=== PATIENT | female | born 1980 | race Caucasian/White ===

== ENCOUNTER → 2018-07-03 16:59 | Outpatient (CLI) | payer BC, SELFPAY ==
[2018-07-03 17:11] LABS: Bacteria 0 SEEN /hpf (None Seen); Mucous, Urine 0 SEEN /hpf (<or=2+); White Blood Cells 0 SEEN /hpf (0-5)
[2018-07-03 17:46] LABS: Absolute Lymphocyte Count 2.42 X10^3/ul (0.83-4.51); Absolute Neutrophil Count 4.1 X10^3/uL (2.0-7.7); Basophil# 0.04 X10^3/uL; Basophil% 0.5 % (0-1); Eosinophil# 0.38 X10^3/uL; Hematocrit 39.9 % (37-47); Hemoglobin 12.9 g/dl (12.0-15.0); Lymphocyte # 2.42 X10^3/ul (4.0); Lymphocyte % 32.1 % (19-41); Mean Corp Hgb Conc 32.3 g/gl (32-36); Mean Corpuscular Hgb 28.5 pg (27.0-32.0); Mean Corpuscular Volume 88.1 fL (81-99); Mean Platelet Vol. 9.9 fl (6.2-12.0); Monocyte# 0.56 X10^3/uL; Monocyte% 7.4 % (0-10); Neutrophil # 4.13 X10^3/uL (2.7-7.7); Neutrophil % 54.9 % (47-70); Platelet Count 230 K/mm3 (150-450); RBC Distribution Width CV 13.3 % (11.6-14.6); RBC Distribution Width SD 42.3 fl (35.1-43.9); Red Blood Count 4.53 M/mm3 (4.2-5.4); White Blood Count 7.5 K/mm3 (4.4-11.0)
[2018-07-03 17:48] LABS: POSITIVE COUNT NO; POSITIVE DIFFERENTIAL NO; POSITIVE MORPHOLOGY NO
[2018-07-03 18:38] LABS: AST(SGOT) 13 U/L (15-37); Alanine Aminotransfer ALT/SGPT 23 U/L (13-56); Albumin, Serum 3.5 g/dL (3.2-5.0); Alkaline Phosphatase 61 U/L (45-117); Anion Gap 8 (5-15); BUN 10 mg/dL (7-18); BUN/Creat Ratio 10.1 RATIO (10-20); Calcium,Total 8.4 mg/dL (8.5-10.1); Chloride 106 mmol/L (98-107); Creatinine, Serum 0.99 mg/dL (0.55-1.02); EST Glomerular Filtration Rate 67 mL/min (>60); Est Glom Filt Rate - Afr Amer 81 mL/min (>60); Globulin 3.5 g/dL (2.2-4.2); Glucose 83 mg/dL (74-106); Magnesium 2.3 mg/dL (1.6-2.6); Potassium 3.7 mmol/L (3.5-5.1); Sodium Level 143 mmol/L (136-145); Thyroid Stim Hormone (TSH) 0.78 uIU/mL (0.358-3.74)
[2018-07-03 18:41] LABS: Amphetamine Urine VISTA NEGATIVE (<1000 ng/mL); Barbiturate Urine VISTA NEGATIVE (< 200 ng/mL); Benzodiazepine Urine VISTA NEGATIVE (< 200 ng/mL); Cocaine Urine VISTA NEGATIVE (< 300 ng/mL); Ecstacy Urine VISTA POSITIVE (< 500 ng/mL); Methadone Urine VISTA NEGATIVE (< 300 ng/mL); PCP Urine VISTA NEGATIVE (< 25 ng/mL); THC Urine VISTA NEGATIVE (< 50 ng/mL); Vista UDS pH Range 6
[2018-07-03 19:45] LABS: Color, Urine Yellow (Yellow); Glucose, Dipstick Normal (Normal); Ketone-Dipstick Negative (Negative); Leukocyte Esterase-Dipstick Negative /ul (Negative); Nitrite-Dipstick Negative (Negative); Occult Blood-Urine 50 /ul (Negative); Protein-Dipstick 100 mg/dl (Negative); Specific Gravity, Urine 1.015 (1.002-1.030); Urine Bilirubin Dipstick Negative (Negative); Urine Clarity Clear (Clear); Urine Urobilinogen Normal (Normal)
[2018-07-03 19:52] LABS: Red Blood Cells-Urine 0-5 SEEN /hpf (0-5); Squamous Epithelial Cells - UA 0-5 SEEN /hpf (5-10)
--- OUTSIDE RECORDS SUMMARY | 2018-09-07 08:05 | XMS RPT_ITS ---
:1980 Author Organization OHIP Care Team Providers Name Role Phone Yash Lewis Attending Unavailable Yash Lewis Referring Unavailable Maxime Villa Primary Care Unavailable Maxime Villa Attending Unavailable Maxime Villa Primary Care Unavailable PROBLEMS PROBLEMS DATE TYPE CONDITION / CODE ATTENDING STATUS SOURCE 07/07/2018 Unknown I10 - Essential Yash Lewis (primary) E [facility] hypertension / Hospital I10(ICD-10) Repository PROCEDURES PROCEDURES No Procedure Records FoundRESULTS RESULTS BASIC METABOLIC Collected: 07/08/2018 Status: F Source: [place] PROFILE (BMP) 4:21 PM [facility] REPOSITORY TYPE CODE TESTS RESULT OUT OF RANGE REFERENCE UNITS LAB L501.0100 74-106 mg/dL High GLU 108 Result Comment: Fasting Glucose result from 100 to 125 mg/dL suggests IMPAIRED HOMEOSTASIS per A.D.A. criteria. Please note revised GLUCOSE reference range effective 2017. LAB L501.1000 7-18 mg/dL Normal BUN 18 LAB L501.1100 0.55-1.02 mg/dL High CREAT,SERUM 1.23 Result Comment: The validity of the calculated GFR AND GFRAA in patients over 70 years has not been determined. Clinical correlation is essential. LAB L501.1110 >60 mL/min Low EST GFR 52 Result Comment: Non- GFR Calc LAB L501.1115 >60 mL/min Normal EST GFR - AA 63 Result Comment: GFR Calc LAB L501.1300 10-20 RATIO Normal BUN/CRE 14.6 LAB L501.2200 8.5-10.1 mg/dL CA Normal 9.0 LAB L501.5300 136-145 mmol/L NA Normal 141 LAB L501.5600 3.5-5.1 mmol/L K Normal 3.7 LAB L501.5900 98-107 mmol/L CL Normal 105 LAB L501.6100 21.0-32.0 mmol/L Normal CO2 24.0 LAB L501.6200 5-15 Normal GAP 12 Performed By: #### L500.2500 #### [facility] [address] [place], [address] URINALYSIS, COMPLETE Collected: 07/03/2018 Status: F Source: [place] 5:11 PM [facility] REPOSITORY Order Comment: How was Urine Obtained? CLEAN CATCH TYPE CODE TESTS RESULT OUT OF RANGE REFERENCE UNITS LAB L400.3000 Yellow COLOR Normal Yellow LAB L400.3050 Clear Normal CLARITY Clear LAB L400.3200 Normal mg/dl Normal GLUCOSE, UR Normal LAB L400.3300 Negative mg/dL Normal BILIRUBIN URINE Negative LAB L400.3400 Negative mg/dl Normal KETONE UR Negative LAB L400.3465 1.002-1.030 Normal SP.GR. DIPSTX 1.015 LAB L400.3550 5.0 - 8.0 pH UR Normal 7.0 LAB L400.3600 Negative mg/dl High PROT DIPSTX 100 LAB L400.3700 Normal mg/dl Normal UROBILI Normal LAB L400.3750 Negative Normal NITRITE UR Negative LAB L400.3780 Negative /ul High 50 OCCULT BLOOD-UR LAB L400.3800 Negative /ul LEUK Normal ESTERASE Negative LAB L400.4050 0-5 /hpf WBC 0 Normal SEEN LAB L400.4100 0-5 /hpf Normal RBC-UA 0-5 SEEN LAB L400.4150 5-10 /hpf SQUAM Normal EPI 0-5 SEEN LAB L400.4300 None Seen /hpf 0 Normal BACTERIA SEEN LAB L400.4350 <or=2+ /hpf 0 Normal MUCUS, URINE SEEN Performed By: #### L400.0001 #### [facility] [address] [place], [address] URINE DRUG SCREEN Collected: 07/03/2018 Status: F Source: [place]) 5:10 PM [facility] REPOSITORY Order Comment: List of Drugs Taken or Suspected? N TYPE CODE TESTS RESULT OUT OF RANGE REFERENCE UNITS LAB L505.0075 TO BE Normal CONFIRMED Result Comment: CONFIRMATORY TESTING FOR ALL POSITIVE URINE DRUG SCREEN RESULTS WILL ONLY BE SENT OUT UPON PHYSICIAN ORDER. VISTA Urine Drug Screen methods provide only preliminary analytical test results. A more specific alternate chemical method must be used in order to obtain a confirmed analytical result. Gas chromatography/mass spectrometery (GC/MS) is the preferred confirmatory method. Clinical consideration and professional judgement should be applied to any drug of abuse test result, particularly when preliminary positive results are used. URINE TCA TESTING MUST BE ORDERED SEPARATELY. USE TEST MNEMONIC: [facility] LAB L505.5005 VISTA UDS PH 6 Normal LAB L505.5015 <1000 ng/mL AMPHETAMINES Normal NEGATIVE LAB L505.5025 < 200 ng/mL BARBITIURATES Normal NEGATIVE LAB L505.5035 < 200 ng/mL BENZODIAZIPINE Normal NEGATIVE LAB L505.5045 < 300 ng/mL COCAINE Normal NEGATIVE LAB L505.5055 < 500 High ng/mL ECSTACY POSITIVE LAB L505.5065 < 300 ng/mL METHADONE Normal NEGATIVE LAB L505.5075 < 300 ng/mL OPIATES Normal NEGATIVE LAB L505.5085 < 25 ng/mL PCP Normal NEGATIVE LAB L505.5095 < 50 ng/mL THC Normal NEGATIVE Performed By: #### L505.5000, L100.0100, L500.4050, L501.5200, L501.9520 #### [facility] [address] [place], [address] CBC W/DIFF, AUTOMATED Collected: 07/03/2018 Status: F Source: [place] 5:10 PM [facility] REPOSITORY TYPE CODE TESTS RESULT OUT OF RANGE REFERENCE UNITS LAB L100.1000 4.4-11.0 K/mm3 Normal WBC 7.5 LAB L100.1200 4.2-5.4 M/mm3 Normal RBC 4.53 LAB L100.1300 12.0-15.0 g/dl Normal HGB 12.9 LAB L100.1400 37-47 % Normal HCT 39.9 LAB L100.1500 81-99 fL Normal MCV 88.1 LAB L100.1600 27.0-32.0 pg Normal MCH 28.5 LAB L100.1700 32-36 g/gl Normal MCHC 32.3 LAB L100.1810 11.6-14.6 % Normal RDW CV 13.3 LAB L100.1820 35.1-43.9 fl Normal RDW SD 42.3 LAB L100.1900 150-450 K/mm3 Normal PLT 230 LAB L100.2000 6.2-12.0 fl Normal MPV 9.9 LAB L100.2100 47-70 % Normal NEUT% 54.9 LAB L100.2200 19-41 % Normal LY% 32.1 LAB L100.2300 0-10 % Normal MONO% 7.4 LAB L100.2400 0-5 % Normal EO% 5.0 LAB L100.2500 0-1 % Normal BASO% 0.5 LAB L100.2550 0.0-0.9 % Normal IM GRAN % 0.100 Result Comment: IG% - Immature Granulocytes (promyelocytes, myelocytes and metamyelocytes) > 1% indicates that a LEFT SHIFT is Present. LAB L100.2620 2.0-7.7 X10 3/uL Normal Absolute Neut 4.1 LAB L100.2720 0.83-4.51 X10 3/ul Normal Absolute Lymph 2.42 Performed By: #### L505.5000, L100.0100, L500.4050, L501.5200, L501.9520 #### [facility] [address] [place], [place], [address] COMPREHENSIVE METABOLIC Collected: 07/03/2018 Status: F Source: [facility] 5:10 PM [facility] REPOSITORY TYPE CODE TESTS RESULT OUT OF RANGE REFERENCE UNITS LAB L501.0100 74-106 mg/dL Normal GLU 83 Result Comment: Please note revised GLUCOSE reference range effective 2017. LAB L501.1000 7-18 mg/dL Normal BUN 10 LAB L501.1100 0.55-1.02 mg/dL Normal CREAT,SERUM 0.99 Result Comment: The validity of the calculated GFR AND GFRAA in patients over 70 years has not been determined. Clinical correlation is essential. LAB L501.1110 >60 mL/min Normal EST GFR 67 Result Comment: Non- GFR Calc LAB L501.1115 >60 mL/min Normal EST GFR - AA 81 Result Comment: GFR Calc LAB L501.1300 10-20 RATIO Normal BUN/CRE 10.1 LAB L501.1500 6.4-8.2 g/dL T Normal PROT 7.0 LAB L501.1800 3.2-5.0 g/dL Normal ALB 3.5 LAB L501.1950 2.2-4.2 g/dL Normal GLOB 3.5 LAB L501.2000 0.9-2.4 RATIO Normal A/G 1.0 LAB L501.2200 8.5-10.1 mg/dL Low CA 8.4 LAB L501.4100 15-37 U/L Low AST 13 LAB L501.4305 45-117 U/L Normal ALK P 61 LAB L501.4405 13-56 U/L Normal ALT 23 LAB L501.4600 0.20-1.00 mg/dL T Normal BILI 0.20 LAB L501.5300 136-145 mmol/L NA Normal 143 LAB L501.5600 3.5-5.1 mmol/L K Normal 3.7 LAB L501.5900 98-107 mmol/L CL Normal 106 LAB L501.6100 21.0-32.0 mmol/L Normal CO2 29.0 LAB L501.6200 5-15 Normal GAP 8 Performed By: #### L505.5000, L100.0100, L500.4050, L501.5200, L501.9520 #### [facility] [address] [place] [place], [address] MAGNESIUM Collected: 07/03/2018 Status: F Source: [place] 5:10 PM [facility] REPOSITORY TYPE CODE TESTS RESULT OUT OF RANGE REFERENCE UNITS LAB L501.5200 1.6-2.6 mg/dL Normal MG 2.3 Performed By: #### L505.5000, L100.0100, L500.4050, L501.5200, L501.9520 #### [facility] [address] [place], [address] THYROID STIM HORMONE Collected: 07/03/2018 Status: F Source: [place] (TSH) 5:10 PM [facility] REPOSITORY TYPE CODE TESTS RESULT OUT OF RANGE REFERENCE UNITS LAB L501.9520 0.358-3.74 uIU/mL Normal TSH 0.78 Performed By: #### L505.5000, L100.0100, L500.4050, L501.5200, L501.9520 #### [place] [facility] [address] [place], [address] MISCELLANEOUS LAB Collected: 07/03/2018 Status: F Source: [place] PROCEDURE 5:10 PM [facility] REPOSITORY Order Comment: ADD ON Comments: [id number] MDMA SCREEN AND CONFIRMATION Test(s) Ordered: [id number] MDMA SCREEN AND CONFIRMATION TYPE CODE TESTS RESULT OUT OF RANGE REFERENCE UNITS LAB L801.1541 Normal [facility] LAB TEST Result Comment: TEST RESULT UNITS REF INTERVAL MDMA SCREEN, URINE NEGATIVE ng/mL IFJPYM=399 TESTING PERFORMED AT [facility]. ORIGINAL REPORT ON FILE IN LAB CONTAINS ADDITIONAL TEST SITE INFORMATION. Performed By: #### L801.1541 #### [place] [facility] [address] [place], [address] ALLERGIES ALLERGIES No Allergies Records FoundENCOUNTERS ENCOUNTERS ADMIT/DISCHARGE ACCOUNT ADMITTING ENCOUNTER LOCATION SOURCE NUMBER CLASS 07/08/2018 [id number] Ambulatory [facility] 2 [facility] ing:MFPLAB Repository 07/03/2018 [id number] Ambulatory [facility] 6 [facility] ing:MTLAB Repository PAYERS PAYERS ENCOUNTER GUARANTOR PAYER SUBSCRIBER SOURCE 07/08/2018 TARAS R [id number] Primary [place] Insurance:ANTHEMPolic GIAGUEDOB: [facility] Number: [id number] Hospital [id number]: 330 [id number] Repository [phone] () Date:1542-46-72ES [address], [place] [address]YP: 07/08/2018 Secondary NOT GIVENUNK [place] Insurance:SELF PAY [facility] Number: Effective Repository Date:2018-07-08 07/03/2018 TARAS R [id number] Primary TARAS R [place] Insurance:ANTHEMPolic GIAGUEDOB: [facility] Number: [id number] Hospital [id number]: (330 [id number] Repository [phone] () Date:0592-61-33XL [address], [place] [address]II: 07/03/2018 Secondary NOT GIVENUNK [place] Insurance:SELF PAY [facility] Number: Effective Repository Date:2018-07-03
== END ==
PROVIDERS: Family Provider Family Medicine; PCP Family Medicine; Referring Provider Family Medicine; Visit Provider Family Medicine
DX: I10 Essential (primary) hypertension (principal); R82.5 Elevated urine levels of drugs, medicaments and biological substances
CPT/HCPCS: 80053; 80307; 81001; 83735; 84443; 85025

== ENCOUNTER → 2018-07-08 16:20 | Outpatient (CLI) | payer BC, SELFPAY ==
[2018-07-08 18:24] LABS: Anion Gap 12 (5-15); BUN 18 mg/dL (7-18); BUN/Creat Ratio 14.6 RATIO (10-20); Chloride 105 mmol/L (98-107); Creatinine, Serum 1.23 mg/dL (0.55-1.02); EST Glomerular Filtration Rate 52 mL/min (>60); Est Glom Filt Rate - Afr Amer 63 mL/min (>60); Glucose 108 mg/dL (74-106); Potassium 3.7 mmol/L (3.5-5.1); Sodium Level 141 mmol/L (136-145)
--- OUTSIDE RECORDS SUMMARY | 2018-09-09 18:47 | XMS RPT_ITS ---
:1980 Author Organization OHIP Care Team Providers Name Role Phone Yash Lewis Attending Unavailable Yash Lewis Referring Unavailable Maxime Villa Primary Care Unavailable Yash Lewis Attending Unavailable Yash Lewis Referring Unavailable Maxime Villa Primary Care Unavailable Maxime Villa Attending Unavailable [facility] [place] Unavailable PROBLEMS PROBLEMS DATE TYPE CONDITION / CODE ATTENDING STATUS SOURCE 07/07/2018 Unknown I10 - Essential Yash Lewis (primary) E [facility] hypertension / Hospital I10(ICD-10) Repository PROCEDURES PROCEDURES No Procedure Records FoundRESULTS RESULTS ECHOCARDIOGRAM COMPLETE Observed: 07/13/2018 Status: F Source: [place] 5:27 PM [facility] REPOSITORY [facility] [address] [place] [address] Echo Complete 07/13/18 1259 MR#: [id number] Acct: [id number] Name: MERLE HOFF Rep #: [id number] : 1980 37 From: Amaury Garsia MD Attending Dr: Yash Lewis MD Status: REG CLI Ordering Dr: Yash Lewis MD Date: 07/13/18 Location: [facility] Sex: F C Admitted: Reason For Study: LVH Procedure This was a 2D Doppler, Color Flow transthoracic echocardiogram. Exam performed in department. Left Ventricle Normal LV size. Moderate concentric left ventricular hypertrophy. Left ventricular systolic function is normal. The estimated ejection fraction is 60 %. Stage 1 diastolic dysfunction. No regional wall motion abnormalities noted. Atria Normal left atrium. Normal right atrium. Mitral Valve Normal mitral valve. Tricuspid Valve Normal tricuspid valve. Mild (1+) tricuspid valve insufficiency. Pulmonary artery systolic pressure is 26 mmHg. Aortic Valve Normal aortic valve. Trisinus/trileaflet aortic valve. Pulmonic Valve Normal pulmonic valve. Great Vessels Normal aortic root. The pulmonary artery is normal size. Normal inferior vena cava. Pericardium/Pleural No pericardial effusion. MMode/2D Measurements AND Calculations LVIDd: 3.7 cm IVSd: 1.5 cm Ao root diam: 2.8 cm LVIDs: 2.3 cm LVPWd: 1.4 cm RVDd: 2.9 cm FS: 37.6 % LAV(MOD-bp): 27.7 ml LVAd ap4: 23.5 cm2 SV(MOD-sp4): 35.6 ml LAV(MOD-bp) Indexed: 14.9 ml/m2 EDV(MOD-sp4): 60.8 ml LAV(MOD-sp2): 28.0 ml EDV(sp4-el): 62.8 ml LAV(MOD-sp4): 26.4 ml LVAs ap4: 12.8 cm2 ESV(MOD-sp4): 25.3 ml ESV(sp4-el): 25.5 ml EF(MOD-sp4): 58.5 % EF(sp4-el): 59.3 % SV(sp4-el): 37.3 ml LA A4 area: 11.5 cm2 LA dimension(2D): 3.2 cm RA A4 area: 9.0 cm2 Doppler Measurements AND Calculations MV E max scott: 69.5 cm/sec Lat Peak E' Scott: 12.3 cm/sec Med Peak E' Scott: 4.4 cm/sec MV A max scott: 83.0 cm/sec E/E' lat: 5.7 E/E' med: 15.8 MV E/A: 0.84 Ao V2 max: 173.8 cm/sec LV V1 max: 104.4 cm/sec PA V2 max: 126.2 cm/sec Ao max P.1 mmHg LV V1 max P.4 mmHg Ao V2 mean: 122.5 cm/sec Ao mean P.6 mmHg Ao V2 VTI: 23.0 cm TR max scott: 233.3 cm/sec TR max P.8 mmHg Interpretation Summary Normal LV size. Moderate concentric left ventricular hypertrophy. Left ventricular systolic function is normal. The estimated ejection fraction is 60 %. Stage 1 diastolic dysfunction. Mild (1+) tricuspid valve insufficiency. Ordering Physician: Yash Lewis Referring Physician: Maxime Villa Performed By: Shari Forte RDCS, RVT 07/13/18 172 Date Amaury Garsia MD CC: Maxime Villa MD; Yash Lewis MD Date Dictated: 07/13/18 1259 Date Transcribed: 07/13/181726 [employer] Math Tutor: Signed BASIC METABOLIC Collected: 07/08/2018 Status: F Source: [place] PROFILE (BMP) 4:21 PM [facility] REPOSITORY TYPE CODE TESTS RESULT OUT [...] GAP 12 Performed By: #### L500.2500 #### [facility] [address] [facility] [place], [place], [address] URINALYSIS, COMPLETE Collected: 07/03/2018 Status: F Source: [place] 5:11 PM [facility] REPOSITORY Order Comment: How was Urine Obtained? [...] URINE SEEN Performed By: #### L400.0001 #### [facility] [address] [place], [address] URINE DRUG SCREEN Collected: 07/03/2018 Status: F Source: [place] (VISTA) 5:10 PM [facility] REPOSITORY Order Comment: List of Drugs Taken [...] #### L505.5000, L100.0100, L500.4050, L501.5200, L501.9520 #### [facility] [address] [place], [address] CBC W/DIFF, AUTOMATED Collected: 07/03/2018 Status: F Source: [place] 5:10 PM [facility] REPOSITORY TYPE CODE TESTS RESULT OUT [...] #### L505.5000, L100.0100, L500.4050, L501.5200, L501.9520 #### [facility] [address] [place], [address] COMPREHENSIVE METABOLIC Collected: 07/03/2018 Status: F Source: [facility] 5:10 PM [facility] REPOSITORY TYPE CODE TESTS RESULT OUT [...] #### L505.5000, L100.0100, L500.4050, L501.5200, L501.9520 #### [facility] [address] [place], [place], [address] MAGNESIUM Collected: 07/03/2018 Status: F Source: [place] 5:10 PM [facility] REPOSITORY TYPE CODE TESTS RESULT OUT OF RANGE REFERENCE UNITS LAB L501.5200 1.6-2.6 mg/dL Normal MG 2.3 Performed By: #### L505.5000, L100.0100, L500.4050, L501.5200, L501.9520 #### [facility] [address] [place], [address] THYROID STIM HORMONE Collected: 07/03/2018 Status: F Source: [place] (TSH) 5:10 PM [facility] REPOSITORY TYPE CODE TESTS RESULT OUT OF RANGE REFERENCE UNITS LAB L501.9520 0.358-3.74 uIU/mL Normal TSH 0.78 Performed By: #### L505.5000, L100.0100, L500.4050, L501.5200, L501.9520 #### [facility] [address] [place], [address] MISCELLANEOUS LAB Collected: 07/03/2018 Status: F Source: [place] PROCEDURE 5:10 PM [facility] REPOSITORY Order Comment: ADD ON Comments: [id number] MDMA SCREEN AND CONFIRMATION Test(s) Ordered: [id number] MDMA SCREEN AND CONFIRMATION TYPE CODE TESTS RESULT OUT OF RANGE REFERENCE UNITS LAB L801.1541 Normal [facility] LAB TEST Result Comment: TEST RESULT UNITS REF INTERVAL MDMA SCREEN, URINE NEGATIVE ng/mL [id number]=129 TESTING PERFORMED AT [facility]. ORIGINAL REPORT ON FILE IN LAB CONTAINS ADDITIONAL TEST SITE INFORMATION. Performed By: #### L801.1541 #### [facility] [address] [place], [address] ALLERGIES ALLERGIES No Allergies Records FoundENCOUNTERS ENCOUNTERS ADMIT/DISCHARGE ACCOUNT ADMITTING ENCOUNTER LOCATION SOURCE NUMBER CLASS 07/13/2018 [id number] Ambulatory [facility] 4 [facility] ing:CVS Repository 07/08/2018 [id number] Ambulatory [facility] 2 [facility] ing:MFPLAB Repository 07/03/2018 [id number] Ambulatory [facility] 6 [facility] ing:MTLAB Repository PAYERS PAYERS ENCOUNTER GUARANTOR PAYER SUBSCRIBER SOURCE 07/13/2018 TARAS R [id number] Primary TARAS R [place] Insurance:ANTHEMPolic GIAGUEDOB: [facility] [place] [place] Number: [id number] Hospital [id number]: (330) [id number] Repository [phone] (HP) Date:3276-30-14[address], [place] [address]SU: 07/13/2018 Secondary [place]LE L [place] [facility] P[facility]AGE GIAUQUEDOB: [facility] Number: [id number] Hospital [id number] Repository Date:2018-07-07 07/13/2018 Tertiary NOT GIVENUNK [place] Insurance:SELF PAY [facility] Number: Effective Repository Date:2018-07-07 07/08/2018 TARAS R [id number] Primary TARAS R [place] Insurance:ANTHEMPolic GIAGUEDOB: [facility] [place] Number: [id number] Hospital [id number]: (330) [id number] Repository [phone] (HP) Date:2490-11-04VV [address], [place] [address]JD: 07/08/2018 Secondary NOT GIVENUNK [place] Insurance:SELF PAY [facility] Number: Effective Repository Date:2018-07-08 07/03/2018 TARAS R [id number] Primary TARAS R [place] Insurance:ANTHEMPolic [place]AGUEDOB: [facility] [place] Number: [id number] Hospital [id number]: (330) [id number] Repository [phone] (HP) Date:8915-48-64MG [address] [place] [address]SB: 07/03/2018 Secondary NOT GIVENUNK [place] Insurance:SELF PAY [facility] Number: Effective Repository Date:2018-07-03
== END ==
PROVIDERS: Family Medicine; Family Provider Family Medicine; PCP Family Medicine; Visit Provider Family Medicine
DX: I10 Essential (primary) hypertension (principal)
CPT/HCPCS: 36415; 80048

== ENCOUNTER → 2018-07-13 12:44 | Outpatient (CLI) | payer BC, SELFPAY ==
--- NOTE | 2018-07-13 12:51 | ECHOD_ITS ---
Reason For Study: LVH Procedure This was a 2D Doppler, Color Flow transthoracic echocardiogram. Exam performed in department. Left Ventricle Normal LV size. Moderate concentric left ventricular hypertrophy. Left ventricular systolic function is normal. The estimated ejection fraction is 60 %. Stage 1 diastolic dysfunction. No regional wall motion abnormalities noted. Atria Normal left atrium. Normal right atrium. Mitral Valve Normal mitral valve. Tricuspid Valve Normal tricuspid valve. Mild (1+) tricuspid valve insufficiency. Pulmonary artery systolic pressure is 26 mmHg. Aortic Valve Normal aortic valve. Trisinus/trileaflet aortic valve. Pulmonic Valve Normal pulmonic valve. Great Vessels Normal aortic root. The pulmonary artery is normal size. Normal inferior vena cava. Pericardium/Pleural No pericardial effusion. MMode/2D Measurements & Calculations LVIDd: 3.7 cm IVSd: 1.5 cm Ao root diam: 2.8 cm LVIDs: 2.3 cm LVPWd: 1.4 cm RVDd: 2.9 cm FS: 37.6 % LAV(MOD-bp): 27.7 ml LVAd ap4: 23.5 cm2 SV(MOD-sp4): 35.6 ml LAV(MOD-bp) Indexed: 14.9 ml/m2 EDV(MOD-sp4): 60.8 ml LAV(MOD-sp2): 28.0 ml EDV(sp4-el): 62.8 ml LAV(MOD-sp4): 26.4 ml LVAs ap4: 12.8 cm2 ESV(MOD-sp4): 25.3 ml ESV(sp4-el): 25.5 ml EF(MOD-sp4): 58.5 % EF(sp4-el): 59.3 % SV(sp4-el): 37.3 ml LA A4 area: 11.5 cm2 LA dimension(2D): 3.2 cm RA A4 area: 9.0 cm2 Doppler Measurements & Calculations MV E max scott: 69.5 cm/sec Lat Peak E' Scott: 12.3 cm/sec Med Peak E' Scott: 4.4 cm/sec MV A max scott: 83.0 cm/sec E/E' lat: 5.7 E/E' med: 15.8 MV E/A: 0.84 Ao V2 max: 173.8 cm/sec LV V1 max: 104.4 cm/sec PA V2 max: 126.2 cm/sec Ao max P.1 mmHg LV V1 max P.4 mmHg Ao V2 mean: 122.5 cm/sec Ao mean P.6 mmHg Ao V2 VTI: 23.0 cm TR max scott: 233.3 cm/sec TR max P.8 mmHg Interpretation Summary Normal LV size. Moderate concentric left ventricular hypertrophy. Left ventricular systolic function is normal. The estimated ejection fraction is 60 %. Stage 1 diastolic dysfunction. Mild (1+) tricuspid valve insufficiency. Ordering Physician: Yash Lewis Referring Physician: Maxime Villa Performed By: Shari Forte, KARI, RVT
== END ==
PROVIDERS: Family Provider Family Medicine; PCP Family Medicine; Referring Provider Family Medicine; Visit Provider Family Medicine
DX: I51.7 Cardiomegaly (principal)
CPT/HCPCS: 93306

== ENCOUNTER → 2018-08-07 15:57 | Outpatient (CLI) | payer BC, SELFPAY ==
[2018-08-07 17:52] LABS: Anion Gap 12 (5-15); BUN 20 mg/dL (7-18); BUN/Creat Ratio 16.9 RATIO (10-20); Calcium,Total 8.4 mg/dL (8.5-10.1); Chloride 108 mmol/L (98-107); Creatinine, Serum 1.18 mg/dL (0.55-1.02); EST Glomerular Filtration Rate 55 mL/min (>60); Est Glom Filt Rate - Afr Amer 66 mL/min (>60); Glucose 148 mg/dL (74-106); Potassium 3.6 mmol/L (3.5-5.1); Sodium Level 141 mmol/L (136-145)
== END ==
PROVIDERS: Family Provider Family Medicine; PCP Family Medicine; Referring Provider Family Medicine; Visit Provider Family Medicine
DX: I10 Essential (primary) hypertension (principal)
CPT/HCPCS: 36415; 80048

== ENCOUNTER → 2018-09-24 | Outpatient (CLI) | payer BC, SELFPAY ==
[2018-09-24 17:37] LABS: Erythrocyte Sedimentation Rate 22 mm/hr (0-20)
[2018-09-24 17:39] LABS: Absolute Lymphocyte Count 2.43 X10^3/ul (0.83-4.51); Absolute Neutrophil Count 4.8 X10^3/uL (2.0-7.7); Basophil# 0.04 X10^3/uL; Basophil% 0.5 % (0-1); Eosinophil# 0.39 X10^3/uL; Eosinophils% 4.7 % (0-5); Hemoglobin 12.6 g/dl (12.0-15.0); Lymphocyte # 2.43 X10^3/ul (4.0); Lymphocyte % 29.2 % (19-41); Mean Corp Hgb Conc 33.2 g/gl (32-36); Mean Corpuscular Hgb 28.3 pg (27.0-32.0); Mean Corpuscular Volume 85.2 fL (81-99); Mean Platelet Vol. 10.1 fl (6.2-12.0); Monocyte# 0.61 X10^3/uL; Monocyte% 7.3 % (0-10); Neutrophil # 4.83 X10^3/uL (2.7-7.7); Neutrophil % 58.1 % (47-70); Platelet Count 284 K/mm3 (150-450); RBC Distribution Width CV 13.8 % (11.6-14.6); RBC Distribution Width SD 42.6 fl (35.1-43.9); Red Blood Count 4.46 M/mm3 (4.2-5.4); White Blood Count 8.3 K/mm3 (4.4-11.0)
[2018-09-24 17:45] LABS: POSITIVE COUNT NO; POSITIVE DIFFERENTIAL NO; POSITIVE MORPHOLOGY NO
[2018-09-24 17:56] LABS: Vitamin B12 564 pg/mL (211-911); Vitamin D,25 Hydroxy 18.5 ng/mL (29.95-100.01)
[2018-09-24 18:05] LABS: Anion Gap 6 (5-15); BUN 12 mg/dL (7-18); BUN/Creat Ratio 10.5 RATIO (10-20); CRP < 2.90 mg/L (0.0-3.0); Calcium,Total 8.7 mg/dL (8.5-10.1); Chloride 105 mmol/L (98-107); Creatinine, Serum 1.14 mg/dL (0.55-1.02); EST Glomerular Filtration Rate 57 mL/min (>60); Est Glom Filt Rate - Afr Amer 69 mL/min (>60); Glucose 92 mg/dL (74-106); Iron 60 ug/dL (50-170); Potassium 3.6 mmol/L (3.5-5.1); Rheumatoid Factor < 10.0 IU/mL (<15); Sodium Level 139 mmol/L (136-145); Thyroid Stim Hormone (TSH) 0.98 uIU/mL (0.358-3.74)
[2018-09-28 14:11] LABS: ANTINUCLEAR ANTIBODIES DIRECT Negative (Negative)
== END | disposition home or self-care (01) ==
LOC: MFPLAB 16:43
PROVIDERS: Family Provider Family Medicine; PCP Family Medicine; Referring Provider Family Medicine; Visit Provider Family Medicine
DX: M79.7 Fibromyalgia (principal); R53.83 Other fatigue; I10 Essential (primary) hypertension
CPT/HCPCS: 36415; 80048; 82306; 82533; 82607; 83540; 84443; 85025; 85652; 86038; 86140; 86431

== ENCOUNTER → 2018-10-26 17:11 | Outpatient (CLI) | payer BC, SELFPAY ==
[2018-10-26 18:12] LABS: Anion Gap 8 (5-15); BUN 12 mg/dL (7-18); BUN/Creat Ratio 11.4 RATIO (10-20); Calcium,Total 8.8 mg/dL (8.5-10.1); Chloride 106 mmol/L (98-107); Creatinine, Serum 1.05 mg/dL (0.55-1.02); EST Glomerular Filtration Rate 62 mL/min (>60); Est Glom Filt Rate - Afr Amer 75 mL/min (>60); Glucose 84 mg/dL (74-106); Potassium 3.7 mmol/L (3.5-5.1); Sodium Level 140 mmol/L (136-145)
== END ==
PROVIDERS: Family Provider Family Medicine; PCP Family Medicine; Visit Provider Family Medicine
DX: N18.9 Chronic kidney disease, unspecified (principal)
CPT/HCPCS: 36415; 80048

== ENCOUNTER → 2021-02-12 16:50 | Outpatient (CLI) | payer BC, SELFPAY ==
[2021-02-12 18:03] LABS: Hematocrit 41.6 % (37-47); Hemoglobin 13.6 g/dL (12.0-15.0); Mean Corp Hgb Conc 32.7 g/dL (32-36); Mean Corpuscular Hgb 28.3 pg (27.0-32.0); Mean Corpuscular Volume 86.5 fL (81-99); Mean Platelet Vol. 10.4 fl (6.2-12.0); Platelet Count 240 K/mm3 (150-450); RBC Distribution Width CV 13.1 % (11.6-14.6); Red Blood Count 4.81 M/mm3 (4.2-5.4); White Blood Count 7.4 K/mm3 (4.4-11.0)
[2021-02-12 18:50] LABS: Anion Gap 7 (5-15); BUN 13 mg/dL (7-18); BUN/Creat Ratio 12.3 RATIO (10-20); Calcium,Total 8.7 mg/dL (8.5-10.1); Chloride 107 mmol/L (98-107); Creatinine, Serum 1.06 mg/dL (0.55-1.02); EST Glomerular Filtration Rate 61 mL/min (>60); Est Glom Filt Rate - Afr Amer 74 mL/min (>60); Glucose 84 mg/dL (74-106); Iron 74 ug/dL (50-170); Potassium 3.7 mmol/L (3.5-5.1); Sodium Level 138 mmol/L (136-145); Thyroid Stim Hormone (TSH) 1.25 uIU/mL (0.358-3.74); Vitamin B12 511 pg/mL (211-911); Vitamin D,25 Hydroxy 40.8 ng/mL
== END ==
PROVIDERS: PCP Family Medicine; Visit Provider Family Medicine
DX: E55.9 Vitamin D deficiency, unspecified (principal); I10 Essential (primary) hypertension; R53.83 Other fatigue
CPT/HCPCS: 36415; 80048; 82306; 82533; 82607; 83540; 84443; 85027

== ENCOUNTER → 2022-03-13 | Outpatient (CLI) | payer BC, SELFPAY ==
[2022-03-14 10:16] LABS: Color, Urine Straw (Yellow); Glucose, Dipstick Normal (Normal); Ketone-Dipstick Negative (Negative); Leukocyte Esterase-Dipstick 100 /ul (Negative); Nitrite-Dipstick Negative (Negative); Occult Blood-Urine Negative /ul (Negative); Protein-Dipstick 15 mg/dl (Negative); Specific Gravity, Urine 1.005 (1.002-1.030); Urine Bilirubin Dipstick Negative (Negative); Urine Clarity Clear (Clear); Urine Urobilinogen Normal (Normal)
== END | disposition home or self-care (01) ==
LOC: LABSPEC 03-14 10:11
PROVIDERS: PCP Family Medicine; Visit Provider Family Medicine
DX: Z00.00 Encounter for general adult medical examination without abnormal findings (principal)
CPT/HCPCS: 81002; 87077; 87086; 87088; 87186

== ENCOUNTER → 2022-03-20 | Outpatient (CLI) | payer BC, SELFPAY ==
[2022-03-20 10:23] LABS: Erythrocyte Sedimentation Rate 16 mm/hr (0-30)
[2022-03-20 10:34] LABS: Vitamin D,25 Hydroxy 33.4 ng/mL
[2022-03-20 11:00] LABS: Anion Gap 6 (5-15); BUN 14 mg/dL (7-18); BUN/Creat Ratio 12.8 RATIO (10-20); Calcium,Total 9.1 mg/dL (8.5-10.1); Chloride 110 mmol/L (98-107); Cholesterol 220 mg/dL (200); Creatinine, Serum 1.09 mg/dL (0.55-1.02); EST Glomerular Filtration Rate 59 mL/min (>60); Est Glom Filt Rate - Afr Amer 71 mL/min (>60); Glucose 101 mg/dL (74-106); High Density Lipoprotein 56 mg/dL; Potassium 4.2 mmol/L (3.5-5.1); Sodium Level 139 mmol/L (136-145); Triglycerides 110 mg/dL; Very Low Density Lipoprotein 22 mg/dL (5-40)
== END | disposition home or self-care (01) ==
LOC: MFPLAB 08:33
PROVIDERS: PCP Family Medicine; Referring Provider Family Medicine; Visit Provider Family Medicine
DX: I10 Essential (primary) hypertension (principal); M79.7 Fibromyalgia; E55.9 Vitamin D deficiency, unspecified
CPT/HCPCS: 36415; 80048; 80061; 82306; 84443; 85652

== ENCOUNTER → 2022-10-10 | Outpatient (CLI) | payer BC, SELFPAY ==
[2022-10-03 13:07] LABS: HPV APTIMA, High Risk Negative (Negative)
--- NOTE | 2022-10-10 15:41 | BI_ITS ---
MAMMOGRAPHY - BILATERAL SCREENING REASON FOR EXAM: Female, 42 years old. Routine annual screening examination. PERTINENT HISTORY: Non-contributory. TECHNIQUE: Digital bilateral breast zeenat (3D mammographic acquisition) in the CC and MLO projections. 2-D mediolateral oblique (MLO) and craniocaudad (CC) views of both breasts were obtained. CAD: Full Field Digital Mammography with Computer Added Detection was performed. COMPARISON: None. Baseline examination. FINDINGS: Breast Composition: The breasts are extremely dense, which lowers the sensitivity of mammography. There are no dominant masses or suspicious calcifications. There is a 1.5 cm x 0.6 cm well-defined nodule in the upper lateral anterior aspect of the right breast. Correlation with ultrasound is recommended. Small benign-appearing bilateral axillary lymph nodes. No other significant abnormalities are identified. BI/SCRN MAMM (CAD)W/ZEENAT BILAT IMPRESSION: 1.5 cm x 0.6 cm well-defined nodule in the upper lateral aspect of the right breast. Correlation with ultrasound is recommended. ASSESSMENT CATEGORY: BIRADS Category 0: Incomplete. Need additional imaging evaluation. A letter regarding these results will be sent to the patient by the facility within 30 days. Approximately 10% of breast cancers are not detected by mammography. A normal mammogram should not delay biopsy of a clinically suspicious abnormality. [id number] Electronically Signed: Dontae Alvarez MD at 8:54 EDT ,
== END | disposition home or self-care (01) ==
LOC: OPBI 15:40
PROVIDERS: PCP Family Medicine; Referring Provider Nurse Practitioner Women's Health; Visit Provider Nurse Practitioner Women's Health
DX: Z12.31 Encounter for screening mammogram for malignant neoplasm of breast (principal); Z12.4 Encounter for screening for malignant neoplasm of cervix
CPT/HCPCS: 77063; 77067; 87624; 88175; G0145

== ENCOUNTER → 2022-10-15 | Outpatient (CLI) | payer BC, SELFPAY ==
--- NOTE | 2022-10-15 09:24 | US_ITS ---
STUDY: ULTRASOUND BREAST - RIGHT REASON FOR EXAM: Female, 42 years old. Abnormal screening mammogram. TECHNIQUE: Axial and longitudinal images of the RIGHT breast were performed with a high resolution ultrasound transducer. # OF IMAGES: 37 COMPARISON: Comparison is made with prior mammogram dated October 10, 2022. FINDINGS: RIGHT Breast: The mammographic abnormality corresponds to a 8 mm x 6 mm x 3 mm hypoechoic well-defined nodule suggestive of a lymph node. US/Breast Limited Unilateral IMPRESSION: The mammographic abnormality corresponds to an 8 mm x 6 mm x 3 mm hypoechoic well-defined nodule suggestive of a lymph node. ASSESSMENT CATEGORY: BIRADS Category 2: Benign. A letter regarding these results will be sent to the patient by the facility within 30 days. Electronically Signed: Dontae Alvarez MD at 12:34 EDT ,
== END | disposition home or self-care (01) ==
PROVIDERS: PCP Family Medicine; Referring Provider Nurse Practitioner Women's Health; Visit Provider Nurse Practitioner Women's Health
DX: R92.8 Other abnormal and inconclusive findings on diagnostic imaging of breast (principal)
CPT/HCPCS: 76642

== ENCOUNTER → 2023-03-03 | Outpatient (CLI) | payer BC, SELFPAY ==
[2023-03-03 16:13] LABS: Absolute Lymphocyte Count 2.04 X10^3/uL (0.83-4.51); Absolute Neutrophil Count 4.4 X10^3/uL (2.0-7.7); Basophil# 0.05 X10^3/uL; Basophil% 0.7 % (0-1); Eosinophil# 0.21 X10^3/uL; Eosinophils% 2.9 % (0-5); Hematocrit 41.4 % (37-47); Hemoglobin 13.4 g/dL (12.0-15.0); Lymphocyte # 2.04 X10^3/ul (0.83-4.51); Mean Corp Hgb Conc 32.4 g/dL (32-36); Mean Corpuscular Hgb 28.9 pg (27.0-32.0); Mean Corpuscular Volume 89.2 fL (81-99); Mean Platelet Vol. 10.8 fl (6.2-12.0); Monocyte# 0.57 X10^3/uL; Monocyte% 7.8 % (0-10); NRBC Flagged by Analyzer 0 % (0-5); Neutrophil # 4.39 X10^3/uL (2.7-7.7); Neutrophil % 60.3 % (47-70); Platelet Count 239 K/mm3 (150-450); RBC Distribution Width CV 13.4 % (11.6-14.6); RBC Distribution Width SD 43.8 fl (35.1-43.9); Red Blood Count 4.64 M/mm3 (4.2-5.4); White Blood Count 7.3 K/mm3 (4.4-11.0)
[2023-03-03 16:35] LABS: Erythrocyte Sedimentation Rate 9 mm/hr (0-30)
[2023-03-03 17:15] LABS: ALB/GLOB Ratio 1.1 RATIO (0.9-2.4); AST(SGOT) 14 U/L (15-37); Alanine Aminotransfer ALT/SGPT 21 U/L (13-56); Albumin, Serum 3.8 g/dL (3.2-5.0); Alkaline Phosphatase 57 U/L (45-117); Anion Gap 6 (5-15); BUN 12 mg/dL (7-18); BUN/Creat Ratio 10.6 RATIO (10-20); CRP < 2.90 mg/L (0.0-3.0); Calcium,Total 8.7 mg/dL (8.5-10.1); Chloride 106 mmol/L (98-107); Creatinine, Serum 1.13 mg/dL (0.55-1.02); EST Glomerular Filtration Rate 56 mL/min (>60); Est Glom Filt Rate - Afr Amer 68 mL/min (>60); Globulin 3.6 g/dL (2.2-4.2); Glucose 96 mg/dL (74-106); LDH 139 U/L (84-246); Potassium 3.7 mmol/L (3.5-5.1); Protein, Total 7.4 g/dL (6.4-8.2); Sodium Level 138 mmol/L (136-145)
[2023-03-07 02:07] LABS: Anti-Centromere B Ab <0.2 AI (0.0-0.9); Anti-Chromatin <0.2 AI (0.0-0.9); Anti-Jo <0.2 AI (0.0-0.9); Anti-Scleroderma-70 AB <0.2 AI (0.0-0.9); Anti-dsDNA Ab <1 IU/mL (0-9); Beef <0.10 kU/L (Class 0); Chocolate <0.10 kU/L (Class 0); Clam <0.10 kU/L (Class 0); Codfish <0.10 kU/L (Class 0); Corn <0.10 kU/L (Class 0); Egg, White <0.10 kU/L (Class 0); Egg, Whole <0.10 kU/L (Class 0); Milk (Cow) <0.10 kU/L (Class 0); Peanut <0.10 kU/L (Class 0); Pork <0.10 kU/L (Class 0); RNP Ab <0.2 AI (0.0-0.9); SCALLOP <0.10 kU/L (Class 0); SESAME SEED <0.10 kU/L (Class 0); SJOGREN'S Anti-SS-A test < 0.2 AI (0.0-0.9); SJOGREN'S Anti-SS-B test < 0.2 AI (0.0-0.9); Shrimp <0.10 kU/L (Class 0); Smith Ab <0.2 AI (0.0-0.9); Soybean <0.10 kU/L (Class 0); Walnut, (Food) <0.10 kU/L (Class 0); Wheat <0.10 kU/L (Class 0)
[2023-03-07 06:08] LABS: Albumin 3.9 g/dL (2.9-4.4); Alpha-1-Globulins 0.3 g/dL (0.0-0.4); Alpha-2-Globulins 0.7 g/dL (0.4-1.0); Cytoplasmic Ab (C-ANCA) <1:20 titer (Neg:<1:20); Endomysial Antibody IgA Negative (Negative); Gamma Globulin 0.9 g/dL (0.4-1.8); Gastrin, Serum 29 pg/mL (0-115); Immunoglobulin A 346 mg/dL (87-352); Immunoglobulin E 9 IU/mL (6-495); Immunoglobulin G 774 mg/dL (586-1602); Immunoglobulin M 123 mg/dL (26-217); PROEL- TOTAL PROTEIN 6.9 g/dL (6.0-8.5); Perinuclear Ab (P-ANCA) <1:20 titer (Neg:<1:20); t-Transglutaminase IgA <2 U/mL (0-3)
== END | disposition home or self-care (01) ==
PROVIDERS: PCP Family Medicine; Referring Provider Internal Medicine Gastroenterology; Visit Provider Internal Medicine Gastroenterology
DX: K58.9 Irritable bowel syndrome, unspecified (principal)
CPT/HCPCS: 36415; 80053; 82784; 82785; 82941; 83516; 83615; 84165; 85025; 85652; 86003; 86005; 86140; 86225; 86235; 86255; 86256; 86334

== ENCOUNTER → 2023-03-08 | Outpatient (CLI) | payer BC, SELFPAY ==
[2023-03-17 14:09] LABS: Pancreatic Elastase, Fecal 272 (>200)
[2023-03-18 00:06] LABS: Calprotectin, Stool <5 ug/g (0-120); Fats, Neutral Normal (.); Fats, Total Increased (.)
== END | disposition home or self-care (01) ==
LOC: LABSPEC 10:15
PROVIDERS: PCP Family Medicine; Referring Provider Internal Medicine Gastroenterology; Visit Provider Internal Medicine Gastroenterology
DX: K58.9 Irritable bowel syndrome, unspecified (principal)
CPT/HCPCS: 82653; 82705; 83630; 83993; 87177; 87209; 87329; 87493; 87506

== ENCOUNTER 2023-04-04 05:22 | Day surgery (SDC) | payer BC, SELFPAY ==
--- NOTE | 2023-04-04 | IMM_PTH ---
PATIENT: MERLE HOFF LOC: EN U#:[id number] AGE/SX: 42/F ROOM: RE04/04/[address]: Dr. Porfirio Huertas DO : 1980 BED: DIS: 04/04/2023 SPEC #: [id number] RECD: 04/07/23 13:20 STATUS: LYNNETTE RECarol Ann #: [id number] JOSE: 04/04/23 00:[address]: Porfirio Huertas DEPT: IMMUNOHISTOCHEMISTRY RECD BY: Ivette Platt ENTERED: 04/07/23 13:21 SP TYPE: IMMUNO OTHR DR: Dr. Maxime Villa MD Tissues: B - Stomach, NOS Procedures: H Pylori (initial) PHYSICIAN & INSTITUTION [place] [id number] SPECIMEN INFORMATION: Tissue Source: B - Lesser curvature Clinical Info: Irritable bowel syndrome, GERD Specimen Number: [id number] CPT code: 84623 METHODOLOGY: Deparaffinized sections of prefer/formalin-fixed tissue or PAP/DQ stained slides are incubated with monoclonal/polyclonal antibodies/oligonucleotide probes. Localization is made via biotin free immunoperoxidase method. Appropriate controls are performed and reacted as expected. Results on target cell population are indicated in the following table: RESULTS: ANTIBODY / CLONE RESULT Block B H Pylori (polyclonal) negative These tests were developed and their performance characteristics determined by [facility]. They may not have been cleared or approved by the U.S. Food and Drug Administration. The FDA has determined that such clearance or approval is not necessary. The above immunohistochemical/dualISH markers are ordered and reviewed by the Pathologist. INTERPRETATION: B. Stomach, lesser curvature, biopsy: Negative for Helicobacter pylori organisms. AM:carolina 04/08/2023
[2023-04-04] MEDS: Lactated Ringers 1,000 ML 15 ML IV (05:52)
[2023-04-04 05:53] VITALS: BP 121/74; PULSE 80; RESP 18; TEMP 36.4; O2SAT 97; BMI 34.2
[2023-04-04 05:57] LABS: Internal QC Validated? YES +Cl - CLEAR BKGD; Pregnancy, Urine Negative Negative
--- NOTE | 2023-04-04 06:30 | EGD_PTH ---
PATIENT: MERLE HOFF LOC: EN U#:[id number] AGE/SX: 42/F ROOM: RE04/04/[address]: Dr. Porfirio Huertas DO : 1980 BED: DIS: 04/04/2023 SPEC #: [id number] RECD: 04/04/23 10:16 STATUS: LYNNETTE LIAT #: [id number] JOSE: 04/04/23 06:[address]: Porfirio Huertas DEPT: SURGICAL PATHOLOGY RECD BY: Estrellita Gant ENTERED: 04/04/23 11:10 SP TYPE: EGD BIOPSY OT DR: Dr. Maxime Villa MD Tissues: A - Duodenum, NOS B - Esophagus, NOS C - Esophagus, NOS D - Sigmoid colon biopsy E - Ileum, NOS F - COLON BIOPSY Procedures: Special Stain Group II Surgery Specimen Level IV Alcian Blue/PAS (control) HEADER OPERATION: Colonoscopy with polypectomy, biopsy, EGD with biopsy PRE-OP DIAGNOSIS: Irritable bowel syndrome, GERD TISSUE SUBMITTED: A - Duodenum, B - Lesser curvature, C - Distal esophagus, D - Sigmoid polyp, E - Terminal ileum, F - Random colon MICROSCOPIC DIAGNOSIS A. Duodenum, biopsy: Focal gastric metaplasia. Mild chronic inflammation, nonspecific. B. Stomach, lesser curvature, biopsy: Mild chronic gastritis. See comment. C. Distal esophagus, biopsy: Gastroesophageal junctional mucosa with mild chronic inflammation. Focal changes of reflux. No evidence of goblet cell metaplasia. See comment. D. Sigmoid colon polyp, biopsy: Tubular adenoma. E. Terminal ileum, biopsy: No pathologic change. F. Colon, random biopsy: No pathologic change. AM:carolina 04/07/2023 COMMENT B. The results of immunohistochemistry for Helicobacter pylori will be reported separately ([id number]). C. Alcian blue/PAS stain with matched control supports the above diagnosis. Case has been reviewed in consultation with Dr. Trammell who concurs with the above diagnosis. IDC:SJ MICROSCOPIC DESCRIPTION Slides are reviewed. GROSS DESCRIPTION A - Received in fixative is one container labeled with the patient's name and designated duodenum. The specimen consists of multiple irregular fragments of light sesay soft tissue that in aggregate measure 1.5 x 0.3 x 0.1 cm. The specimen is totally submitted in one cassette. B - Received in fixative is one container labeled with the patient's name and designated lesser curvature. The specimen consists of multiple irregular fragments of light sesay soft tissue that in aggregate measure 1.0 x 0.5 x 0.1 cm. The specimen is totally submitted in one cassette. C - Received in fixative is one container labeled with the patient's name and designated distal esophagus. The specimen consists of multiple irregular fragments of light sesay soft tissue that in aggregate measure 1.0 x 0.5 x 0.1 cm. The specimen is totally submitted in one cassette. D - Received in fixative is one container labeled with the patient's name and designated sigmoid polyp. The specimen consists of one irregular fragment of light sesay soft tissue that measures 0.3 x 0.3 x 0.1 cm. The specimen is totally submitted in one cassette. E - Received in fixative is one container labeled with the patient's name and designated terminal ileum. The specimen consists of two irregular fragments of light sesay soft tissue that in aggregate measure 0.7 x 0.4 x 0.1 cm. The specimen is totally submitted in one cassette. F - Received in fixative is one container labeled with the patient's name and designated random colon. The specimen consists of multiple irregular fragments of light sesay soft tissue that in aggregate measure 1.0 x 0.5 x 0.1 cm. The specimen is totally submitted in one cassette. / SJ:rg 04/04/2023 TC:3 CPT: 21898 x6, 79938
--- NOTE | 2023-04-04 06:36 | HP.PCM_ITS ---
History and Physical Date of Admission: 04/04/23 Gynecology established 4.13.23 noting difficulty with IBS and referred to GI. *BGI established 8.. BM alternate between constipation (lack of BM or hard/small stools) with loose stools and abdominal cramping lasting all day for 1-2 days, with all BM she has mucus and will leak from her rectum uncontrollably; bloating is a daily issue. Hemorrhoids are also a problem. Intermittent GERD is also a problem, managed with PRN Zantac and TUMs. Feels a lot of her symptoms are stress related. Strong FH of colon cancer on both sides of her family; her parents have not experienced colon cancer to date. Last colonoscopy 10 years priorMERLE HOFF, is a 42 F who presents to the office today for ROS Const Constitutional: No anorexia, fatigue, fever(s), weight change or sleep problems Eyes Eyes: No change in vision ENT ENT: No abnormal hearing, difficulty swallowing, mouth lesions, tongue swelling or throat swelling Resp Respiratory: No cough or shortness of breath Cardio Cardiology: No chest pain at rest, chest pain with exertion, shortness of breath or dyspnea on exertion Gastro GI: No difficulty swallowing Genitourinary-Female: No difficulty urinating or burning urination Musc Musculoskeletal: No joint pain, joint swelling, muscle weakness or decreased muscle mass Skin Skin: No hair loss in leg, yellowing of the eye, itchy eyes, rash, skin ulcer or skin swelling Neuro Neurology: No abnormal hearing, abnormal movements, confusion, unsteady gait/balance or memory loss Psych Psychiatric: No anxiety, No confusion and No memory loss Endo Endocrine: No fatigue or weight change Aller/Imm Allergy/Immunologic: No itchy eyes, throat swelling or tongue swelling Kali/Lymp Hematologic/Lymphatic: No easy bleeding, easy bruising or enlarged lymph nodes Exam Const General: cooperative and comfortable Nutritional Appearance: average body habitus and well nourished HENMT Head: normal to inspection Ears: hearing grossly normal bilaterally Nose: external nose normal Face and sinus: normal facial exam Mouth: oral mucosae normal Throat: posterior oropharynx normal Eyes General: appearance normal, both eyes and all related structures Neck Neck: normal visual inspection Chest Chest palpation & inspection: normal inspection of the chest and normal palpation of entire chest wall Resp Effort & Inspection: normal respiratory effort Auscultation: Bilateral: Clear to Auscultation Cardio Palpation: normal PMI Rate: regular rate Rhythm: regular rhythm GI Inspection: normal to inspection Auscultation: normal bowel sounds Percussion: normal to percussion Palpation: no hepatosplenomegaly Skin General: no rashes or lesions noted Neuro General: patient alert Extrem General: normal to inspection Psych Affect: normal affect Quality Reporting Tobacco Screening ([facility]) Smoking Status: Current some day smoker Assessment and Plan Assessment and Plan (1) IBS (irritable bowel syndrome): Status: Chronic Qualifiers: Irritable bowel syndrome type: with both diarrhea and constipation Qualified Code(s): K58.2 - Mixed irritable bowel syndrome Plan: The differential diagnosis for her abdominal pain, bloating, cramping, nausea is due to bowel syndrome with diarrhea, celiac disease, exocrine pancreatic insufficiency, eosinophilic gastroenteritis, H. pylori associated infection, peptic ulcer disease and less likely inflammatory bowel disease. She will undergo biochemical thing in possible functional testing with gastric emptying study and small bowel motility study. We may also have to get a sits marker test in order to evaluate her colon for colonic inertia and slow transit constipation versus pelvic floor dysfunction. She will undergo EGD and colonoscopy with biopsies of the upper and lower GI tract. She was explained alternatives, risk, benefits include not withstanding bleeding, infection, sepsis, perforation, need for emergent and . She have an ASA of 2. Orders: Orders Stool Lactoferrin/WBC Today K58.9 - Irritable bowel syndrome without diarrhea Erythrocyte Sed Rate Today K58.9 - Irritable bowel syndrome without diarrhea ANCA Today K58.9 - Irritable bowel syndrome without diarrhea LDH Today K58.9 - Irritable bowel syndrome without diarrhea CRP Today K58.9 - Irritable bowel syndrome without diarrhea MARICEL Comprehensive Panel Today K58.9 - Irritable bowel syndrome without diarrhea Immunoglobulins G/A/M/E Today K58.9 - Irritable bowel syndrome without diarrhea Celiac Disease Profile Today K58.9 - Irritable bowel syndrome without diarrhea CBC W/Diff, Automated Today K58.9 - Irritable bowel syndrome without diarrhea RITO + Protein Elect, Serum Today K58.9 - Irritable bowel syndrome without diarrhea Calprotectin, Stool Today K58.9 - Irritable bowel syndrome without diarrhea Comprehensive Metabolic Profil Today K58.9 - Irritable bowel syndrome without diarrhea Pancreatic Elastase, Fecal Today K58.9 - Irritable bowel syndrome without diarrhea OVA+PARA w/Giardia EIA [id number] Today K58.9 - Irritable bowel syndrome without diarrhea Fecal Fat, Qualitative Today K58.9 - Irritable bowel syndrome without diarrhea ENTERIC PATHOGEN PANEL STOOL Today K58.9 - Irritable bowel syndrome without diarrhea CDIFF (PCR) Today K58.9 - Irritable bowel syndrome without diarrhea Miscellaneous Lab Procedure Today K58.9 - Irritable bowel syndrome without diarrhea Gastrin, Serum Today K58.9 - Irritable bowel syndrome without diarrhea Allergen, Food Profile Today K58.9 - Irritable bowel syndrome without diarrhea Allergen, Rast Food Profile Today K58.9 - Irritable bowel syndrome without diarrhea I have examined the patient and the H&P has been reviewed. There are no clinical changes since date of exam.
--- NOTE | 2023-04-04 07:13 | OP.EGD_ITS ---
Patient Name: Fariha Zaidi Procedure Date: 04/04/2023 6:17 AM Date of : 1980 Age: 42 Procedure: Upper GI endoscopy Indications: Epigastric abdominal pain, Functional Dyspepsia, Heartburn Providers: Porfirio Huertas DO Medicines: Monitored Anesthesia Care Patient Profile: This is a 42 year old female. Refer to note in patient chart for documentation of history and physical. Patient has symptoms of chronic epigastric abdominal pain, chronic heartburn and chronic nausea. Complications: No immediate complications. Procedure: Pre-Anesthesia Assessment: - Prior to the procedure, a History and Physical was performed, and patient medications and allergies were reviewed. The patient is competent. The risks and benefits of the procedure and the sedation options and risks were discussed with the patient. All questions were answered and informed consent was obtained. Patient identification and proposed procedure were verified by the physician. Mental Status Examination: alert and oriented. Airway Examination: normal oropharyngeal airway and neck mobility. Respiratory Examination: clear to auscultation. CV Examination: normal. Prophylactic Antibiotics: The patient does not require prophylactic antibiotics. Prior Anticoagulants: The patient has taken no anticoagulant or antiplatelet agents. ASA Grade Assessment: II - A patient with mild systemic disease. After reviewing the risks and benefits, the patient was deemed in satisfactory condition to undergo the procedure. The anesthesia plan was to use monitored anesthesia care (MAC). Immediately prior to administration of medications, the patient was re-assessed for adequacy to receive sedatives. The heart rate, respiratory rate, oxygen saturations, blood pressure, adequacy of pulmonary ventilation, and response to care were monitored throughout the procedure. The physical status of the patient was re-assessed after the procedure. After obtaining informed consent, the endoscope was passed under direct vision. Throughout the procedure, the patient's blood pressure, pulse, and oxygen saturations were monitored continuously. The Colonoscope was introduced through the mouth, and advanced to the second part of duodenum. The upper GI endoscopy was accomplished without difficulty. The patient tolerated the procedure well. Scope In: 6:40:25 AM Scope Out: 6:46:38 AM Total Procedure Duration Time 0 hours 6 minutes 13 seconds Findings: LA Grade B (one or more mucosal breaks greater than 5 mm, not extending between the tops of two mucosal folds) esophagitis with no bleeding was found 36 to 38 cm from the incisors. Biopsies were taken with a cold forceps for histology. Verification of patient identification for the specimen was done. Estimated blood loss was minimal. A hiatal hernia was present. A few localized 5 mm erosions with no stigmata of recent bleeding were found on the lesser curvature of the stomach. Biopsies were taken with a cold forceps for histology. Localized mildly erythematous mucosa without active bleeding and with no stigmata of bleeding was found in the duodenal bulb. Biopsies were taken with a cold forceps for histology. Verification of patient identification for the specimen was done. Estimated blood loss was minimal. Impression: - LA Grade B reflux esophagitis with no bleeding. Biopsied. - Hiatal hernia. - Erosive gastropathy with no stigmata of recent bleeding. Biopsied. - Erythematous duodenopathy. Biopsied. Recommendation: - Discharge patient to home. - Resume previous diet. - Continue present medications. - Await pathology results. Procedure Code(s): --- Professional --- 68969, Esophagogastroduodenoscopy, flexible, transoral; with biopsy, single or multiple CPT copyright 2021 [employer]. All rights reserved. The codes documented in this report are preliminary and upon yield clerk review may be revised to meet current compliance requirements. Porfirio Huertas DO 04/04/2023 7:12:40 AM This report has been signed electronically. Number of Addenda: 0 Note Initiated On: 04/04/2023 6:17 AM
--- NOTE | 2023-04-04 07:13 | OP.CCLET_ITS ---
04/04/2023 Dheeraj Villa [address] [place] [address] Re : Upper GI endoscopy procedure for Fariha Thayerdonovan Dear Dr. Villa This procedure was performed on Tuesday, April 04, 2023. My impressions and recommendations are as follows: Impressions : - LA Grade B reflux esophagitis with no bleeding. Biopsied. - Hiatal hernia. - Erosive gastropathy with no stigmata of recent bleeding. Biopsied. - Erythematous duodenopathy. Biopsied. Recommendations : - Discharge patient to home. - Resume previous diet. - Continue present medications. - Await pathology results. My findings are described in the full procedure note, which is enclosed. If I can be of further assistance, please feel free to contact me at . Sincerely, Porfirio Huertas, 04/04/2023 7:12:40 AM This report has been signed electronically.
[2023-04-04 07:15] VITALS: BP 108/68; BP 121/74; PULSE 72; RESP 16; TEMP 37.1; O2SAT 100
--- NOTE | 2023-04-04 07:16 | OP.CCLET_ITS ---
04/04/2023 Dheeraj Villa [address] [place] [address] Re : Colonoscopy procedure for Fariha Tahyerdonovan Dear Dr. Villa This procedure was performed on Tuesday, April 04, 2023. My impressions and recommendations are as follows: Impressions : - Hemorrhoids found on perianal exam. - One 5 mm polyp in the sigmoid colon, removed with a cold snare. Resected and retrieved. - Diverticulosis in the sigmoid colon. - Congested mucosa in the transverse colon and in the ascending colon. Biopsied. - Congested mucosa in the terminal ileum. Biopsied. Recommendations : - Discharge patient to home. - Resume previous diet. - Continue present medications. - Await pathology results. - Repeat colonoscopy in 5 years for surveillance. My findings are described in the full procedure note, which is enclosed. If I can be of further assistance, please feel free to contact me at . Sincerely, Porfirio Huertas, 04/04/2023 7:15:35 AM This report has been signed electronically.
--- NOTE | 2023-04-04 07:16 | OP.COLON_ITS ---
Patient Name: Fariha Zaidi Procedure Date: 04/04/2023 6:47 AM Date of : 1980 Age: 42 Procedure: Colonoscopy Indications: Screening in patient at increased risk: Family history of 1st-degree relative with colorectal cancer, Screening patient at increased risk: Family history of colorectal cancer in multiple 1st-degree relatives Providers: Porfirio Huertas DO Medicines: Monitored Anesthesia Care Patient Profile: This is a 42 year old female. Refer to note in patient chart for documentation of history and physical. Patient has symptoms of chronic epigastric abdominal pain, chronic heartburn and chronic nausea. Last Colonoscopy: 10 years ago. Complications: No immediate complications. Procedure: Pre-Anesthesia Assessment: - Prior to the procedure, a History and Physical was performed, and patient medications and allergies were reviewed. The patient is competent. The risks and benefits of the procedure and the sedation options and risks were discussed with the patient. All questions were answered and informed consent was obtained. Patient identification and proposed procedure were verified by the physician. Mental Status Examination: alert and oriented. Airway Examination: normal oropharyngeal airway and neck mobility. Respiratory Examination: clear to auscultation. CV Examination: normal. Prophylactic Antibiotics: The patient does not require prophylactic antibiotics. Prior Anticoagulants: The patient has taken no anticoagulant or antiplatelet agents. ASA Grade Assessment: II - A patient with mild systemic disease. After reviewing the risks and benefits, the patient was deemed in satisfactory condition to undergo the procedure. The anesthesia plan was to use monitored anesthesia care (MAC). Immediately prior to administration of medications, the patient was re-assessed for adequacy to receive sedatives. The heart rate, respiratory rate, oxygen saturations, blood pressure, adequacy of pulmonary ventilation, and response to care were monitored throughout the procedure. The physical status of the patient was re-assessed after the procedure. After I obtained informed consent, the scope was passed under direct vision. Throughout the procedure, the patient's blood pressure, pulse, and oxygen saturations were monitored continuously. The Colonoscope was introduced through the anus and advanced to the terminal ileum. The colonoscopy was performed without difficulty. The patient tolerated the procedure well. The quality of the bowel preparation was adequate. The terminal ileum, ileocecal valve, appendiceal orifice, and rectum were photographed. Scope In: 6:50:15 AM Scope Withdrawal Time 0 hours 8 minutes 22 seconds Scope Out: 7:03:36 AM Total Procedure Duration Time 0 hours 13 minutes 21 seconds Findings: Hemorrhoids were found on perianal exam. A 5 mm polyp was found in the sigmoid colon. The polyp was sessile. The polyp was removed with a cold snare. Resection and retrieval were complete. Verification of patient identification for the specimen was done. Estimated blood loss was minimal. A few small-mouthed diverticula were found in the sigmoid colon. An area of mildly congested mucosa was found in the transverse colon and in the ascending colon. Biopsies were taken with a cold forceps for histology. Verification of patient identification for the specimen was done. Estimated blood loss was minimal. A localized area of the terminal ileum was congested. Biopsies were taken with a cold forceps for histology. Verification of patient identification for the specimen was done. Estimated blood loss was minimal. Impression: - Hemorrhoids found on perianal exam. - One 5 mm polyp in the sigmoid colon, removed with a cold snare. Resected and retrieved. - Diverticulosis in the sigmoid colon. - Congested mucosa in the transverse colon and in the ascending colon. Biopsied. - Congested mucosa in the terminal ileum. Biopsied. Recommendation: - Discharge patient to home. - Resume previous diet. - Continue present medications. - Await pathology results. - Repeat colonoscopy in 5 years for surveillance. Procedure Code(s): --- Professional --- 33239, Colonoscopy, flexible; with removal of tumor(s), polyp(s), or other lesion(s) by snare technique 67464, 59, Colonoscopy, flexible; with biopsy, single or multiple CPT copyright 2021 [employer]. All rights reserved. The codes documented in this report are preliminary and upon evening sitter review may be revised to meet current compliance requirements. Porfirio Huertas DO 04/04/2023 7:15:35 AM This report has been signed electronically. Number of Addenda: 0 Note Initiated On: 04/04/2023 6:47 AM
[2023-04-04 07:20] VITALS: BP 104/69; BP 121/74; PULSE 69; RESP 16; O2SAT 100
[2023-04-04 07:24] VITALS: BP 121/74; BP 99/69; PULSE 64; RESP 16; O2SAT 100
[2023-04-04 07:26] VITALS: BP 100/82; BP 121/74; PULSE 60; RESP 16; TEMP 36.9; O2SAT 98
[2023-04-04 07:39] VITALS: BP 121/74
== END 2023-04-04 07:56 | disposition home or self-care (01) ==
LOC: EN 05:22 → AC 05:24
PROVIDERS: Anesthesiology; PCP Family Medicine; Referring Provider Family Medicine; Visit Provider Internal Medicine Gastroenterology
PROC: 0DJD8ZZ Inspection of Lower Intestinal Tract, Via Natural or Artificial Opening Endoscopic (ICD-10-PCS; CPT 45378; principal; 2023-04-04 06:25)
DX: K31.A0 Gastric intestinal metaplasia, unspecified (principal); K44.9 Diaphragmatic hernia without obstruction or gangrene; K58.2 Mixed irritable bowel syndrome; F17.200 Nicotine dependence, unspecified, uncomplicated; K21.00 Gastro-esophageal reflux disease with esophagitis, without bleeding; K57.30 Diverticulosis of large intestine without perforation or abscess without bleeding; Z80.0 Family history of malignant neoplasm of digestive organs; K64.9 Unspecified hemorrhoids; K25.9 Gastric ulcer, unspecified as acute or chronic, without hemorrhage or perforation; K29.80 Duodenitis without bleeding; D12.5 Benign neoplasm of sigmoid colon; Z79.899 Other long term (current) drug therapy; I10 Essential (primary) hypertension
CPT/HCPCS: 45380; 43239; 45385; 81025; 88305; 88313; 88342; J7120; J2405

== ENCOUNTER → 2023-08-04 | Outpatient (CLI) | payer BC, SELFPAY ==
--- OUTSIDE RECORDS SUMMARY | 2023-08-04 12:52 | XMS RPT_ITS | CCD ---
Author Name Unknown Address [address] [place] [address] Organization [facility] Results Test Name Value Interpretation Reference Range Facil ity Summary Purpose Family History No Family History Records Found Advance Directives No Advanced Directives Records Found Additional Source Comments INFORMATION SOURCE (unrecogn ized section and content) FOR RECORDS PERTAINING TO PATIENTS WHO ARE OR HAVE BEEN ENROLLED IN A CHEMICAL DEPENDENCY/SUBSTANCEABUSE PROGRAM, SOME INFORMATION MAY BE OMITTED. This clinical summary was aggregated from multiple sources. Caution should be exercised in using it in the provision of clinical care. This summary normalizes information from multiple sources, and as a consequence, information in this document may materially change the coding, format and clinical context of patient data. In addition, data may be omitted in some cases. CLINICAL DECISIONS SHOULD BE BASED ON THE PRIMARY CLINICAL RECORDS. [employer] provides no warranty or guarantee of the accuracy or completeness of information in this document.
[2023-08-07 11:09] LABS: Albumin 3.7 g/dL (2.9-4.4); Alpha-1-Globulins 0.2 g/dL (0.0-0.4); Alpha-2-Globulins 0.7 g/dL (0.4-1.0); Chromogranin A 114.5 ng/mL (0.0-101.8); Endomysial Antibody IgA Negative (Negative); Gamma Globulin 0.9 g/dL (0.4-1.8); IgG, Quant 719 mg/dL (586-1602); Immunoglobulin A 349 mg/dL (87-352); Immunoglobulin G, Subclass 1 267 mg/dL (248-810); Immunoglobulin G, Subclass 2 430 mg/dL (130-555); Immunoglobulin G, Subclass 3 57 mg/dL (15-102); Immunoglobulin G, Subclass 4 11 mg/dL (2-96); Immunoglobulin M 120 mg/dL (26-217); PROEL- TOTAL PROTEIN 6.7 g/dL (6.0-8.5); t-Transglutaminase IgA <2 U/mL (0-3)
[2023-08-10 12:07] LABS: Beef <0.10 kU/L (Class 0); Chocolate <0.10 kU/L (Class 0); Codfish <0.10 kU/L (Class 0); Corn <0.10 kU/L (Class 0); Egg, Whole <0.10 kU/L (Class 0); Milk (Cow) <0.10 kU/L (Class 0); Mussels <0.10 kU/L (Class 0); Peanut <0.10 kU/L (Class 0); Pork <0.10 kU/L (Class 0); Salmon <0.10 kU/L (Class 0); Shrimp <0.10 kU/L (Class 0); Soybean <0.10 kU/L (Class 0); Tuna <0.10 kU/L (Class 0); Wheat <0.10 kU/L (Class 0)
== END | disposition home or self-care (01) ==
PROVIDERS: PCP Family Medicine; Referring Provider Internal Medicine Gastroenterology; Visit Provider Internal Medicine Gastroenterology
DX: K58.9 Irritable bowel syndrome, unspecified (principal)
CPT/HCPCS: 36415; 82784; 82787; 83516; 84165; 86003; 86005; 86255; 86316; 86334

== ENCOUNTER → 2023-08-12 | Outpatient (CLI) | payer BC, SELFPAY ==
--- OUTSIDE RECORDS SUMMARY | 2023-08-12 07:23 | XMS RPT_ITS | CCD ---
Author Name Unknown Address [address] [place] [address] Organization [facility] Results Test Name Value Interpretation [...] BE BASED ON THE PRIMARY CLINICAL RECORDS. [employer] provides no warranty or guarantee of the accuracy or completeness of information in this document.
--- NOTE | 2023-08-12 07:35 | US_ITS ---
STUDY: ABDOMINAL ULTRASOUND - RIGHT UPPER QUADRANT REASON FOR VISIT: Female, 42 years old NAFLD TECHNIQUE: Ultrasound evaluation of the right upper quadrant was performed with real-time and static reynolds-scale imaging. TECHNICAL QUALITY: Adequate. COMPARISON: None. FINDINGS: Liver: The liver measures 16.7 cm. There is increased echogenicity consistent with fatty infiltration. The bile ducts are within normal limits. There is hepatic color flow. The direction of portal flow is hepatopetal. There is no demonstrated mass lesion. Gallbladder: Normal distended gallbladder. The gallbladder wall measures 2 mm. There is a negative sonographic Fernandes''s sign. There is no pericholecystic fluid. There are no gallstones. Common Bile Duct (C.B.D.): The common bile duct measures 4 mm. Pancreas: Normal size of the head, body and tail of the pancreas. There is normal echogenicity of the pancreas. There is no demonstrated pancreatic mass or cyst. Right Kidney: Normal size of the right kidney. The right kidney measures 10.3 cm x 4.8 cm x 3.8 cm. Normal renal cortex. The right cortex measures 1.3 cm. There is no demonstrated renal mass or cyst. There is no right hydronephrosis. IMPRESSION: Mild fatty infiltration of the liver. Electronically Signed: Dontae Alvarez MD at 12:36 EST , STUDY: ABDOMINAL ULTRASOUND - ELASTOGRAPHY REASON FOR VISIT: Female, 42 years old. NAFLD. TECHNIQUE: Liver stiffness measurements were obtained on a TuneCore 85 ultrasound machine using a CA 1-7 probe following the SRU guidelines. 3 measurements were obtained using a 2-D-SWE method. TheIQR/M was 12% suggesting a quality data set. TECHNICAL QUALITY: Adequate. COMPARISON: None. FINDINGS: Liver: There is no demonstrated mass lesion. Median liver stiffness measured 4.9 kPa. Abdomen: There is no demonstrated mass lesion. US/Abdomen Limited IMPRESSION: Liver stiffness measures 4.9 kPa compatible with F0-F1 (Normal to mild liver fibrosis) Metavir score. Electronically Signed: Dontae Alvarez MD at 12:37 EST ,
== END | disposition home or self-care (01) ==
PROVIDERS: PCP Family Medicine; Referring Provider Internal Medicine Gastroenterology; Visit Provider Internal Medicine Gastroenterology
DX: K75.81 Nonalcoholic steatohepatitis (NASH) (principal); K58.9 Irritable bowel syndrome, unspecified
CPT/HCPCS: 76705; 76981

== ENCOUNTER → 2023-08-27 | Outpatient (CLI) | payer BC, SELFPAY ==
--- NOTE | 2023-08-27 10:15 | NM_ITS ---
CLINICAL: 43-year-old female with history of abdominal bloating. SEMI-SOLID PHASE 99m Tc SULFUR COLLOID GASTRIC EMPTYING STUDY COMPARISON: Abdominal ultrasound report 08/12/2023 FINDINGS: The patient was administered 1.1 mCi of 99m Tc sulfur colloid mixed with oatmeal and consumed per os. Image acquisitions in the anterior -posterior projections were obtained for 60 minutes. There is prompt visualization of the stomach. There is no gastroesophageal reflux identified. The T ? linear fit was calculated to be 48.06 minutes, (Normal: 12-56 minutes). NM/Gastric Emptying Study IMPRESSION: 1. NORMAL 99m Tc sulfur colloid semi-solid phase (oatmeal) gastric emptying imaging examination. A. There is normal and preserved semi-solid phase gastric emptying compared to normal controls. (Toro et al, J Nucl Med Tech 38: 186, 2010). Electronically Signed: Bryson Hastings DO at 9:00 EDT ,
--- OUTSIDE RECORDS SUMMARY | 2023-08-27 12:36 | XMS RPT_ITS | CCD ---
Author Name Unknown Address [address] [place] [address] Organization [facility] Results Test Name Value Interpretation [...] BE BASED ON THE PRIMARY CLINICAL RECORDS. [employer] provides no warranty or guarantee of the accuracy or completeness of information in this document.
== END | disposition home or self-care (01) ==
PROVIDERS: PCP Family Medicine; Referring Provider Internal Medicine Gastroenterology; Visit Provider Internal Medicine Gastroenterology
DX: R14.0 Abdominal distension (gaseous) (principal); K58.9 Irritable bowel syndrome, unspecified
CPT/HCPCS: 78264; A9541

== ENCOUNTER → 2024-08-05 | Outpatient (CLI) | payer BC, SELFPAY ==
--- NOTE | 2024-08-05 08:22 | US_ITS ---
PROCEDURE: ABD LIMITED W/ ELASTOGRAPHY REASON FOR EXAM: Fatty infiltration of the liver. COMPARISON: Comparison is made with prior study dated August 12, 2023. TECHNIQUE: Right upper quadrant abdominal ultrasound. [email or web address] ElastQ Imaging shear wave elastography for non-invasive assessment of liver tissue stiffness. [employer] EPIQ Elite. FINDINGS: LIVER: Size: Unremarkable Length: 17.3 cm Echotexture: Diffusely echogenic suggesting fatty infiltration Contour: Normal Lesions: None identified Elastography: EQI Med: 4.9 kPa EQI Med Scott: 1.3 m/s IQR/Med: 18 %* GALLBLADDER: Normal COMMON BILE DUCT: Normal it measures 3.6 mm. PANCREAS: Normal Visualized portions of the right kidney are unremarkable. No right upper quadrant ascites. US/ABD Limited w/ Elastography IMPRESSION: NO TO MILD HEPATIC FIBROSIS Fatty infiltration of the liver. Reference Values: SRU <1.37 m/s (5.7kPa): No to mild fibrosis 1.37 m/s - 2.2 m/s: Moderate to severe fibrosis >2.2 m/s (15kPa): Significant fibrosis / cirrhosis METAVIR Score F2 or higher: 1.34 m/s (5.7kPa) F3 or higher: 1.55 m/s (7.3kPa) F4: 1.80 m/s (10kPa) * If the IQR/Med is >30%, the variance in the measurements is a large and the a ccuracy of the measurement may be in question. Reading Location: [id number]
== END | disposition home or self-care (01) ==
LOC: US 08:20
PROVIDERS: PCP Family Medicine; Referring Provider Internal Medicine Gastroenterology; Visit Provider Internal Medicine Gastroenterology
DX: K76.0 Fatty (change of) liver, not elsewhere classified (principal)
CPT/HCPCS: 76705; 76981

== ENCOUNTER 2024-09-26 09:47 | Emergency (ER) | payer BC, SELFPAY ==
[2024-09-26] VITALS (7 sets, daily range): BP systolic 116–166; BP diastolic 87–103; PULSE 50–70; RESP 14–20; TEMP 36.6–37.2; O2SAT 20–100; BMI 31.6
--- NOTE | 2024-09-26 10:09 | RAD_ITS ---
PROCEDURE: ANKLE MIN 3 VIEWS 09/26/2024 REASON FOR EXAM: FRACTURE DISLOCATION TECHNIQUE: 3 views of the right ankle COMPARISON: Same day tibia/fibula radiographs. FINDINGS: Bones: Acute spiral fracture deformity of the distal right fibula at the level of the syndesmosis. Acute linear fracture with angulation and distraction of the medial malleolus. Joints: There is slight widening of the medial clear space. Soft tissues: Soft tissue swelling. Other: Casting material of the right lower extremity. RAD/Ankle min 3 Views IMPRESSION: Acute medial and lateral malleolar fractures (Irene type B). Reading Location: [id number]
--- NOTE | 2024-09-26 10:12 | EX.ED.GENINJ ---
HPI History of Present Illness Chief Complaint: Fall Informant: patient, spouse/S.O. and EMS Narrative Narrative: 44-year-old female presenting to the emergency room with fracture dislocation of the right ankle. Patient was coming down the stairs this morning when she missed stepped and fell the last few stairs. She notes pain and injury to the right ankle. She has not noted any other injuries. She has not anything to eat or drink today. She is not on blood thinners. Patient has a history of sleep apnea as well as GERD. [facility] Medical History Wears contact lenses Wears glasses Alcohol use Anemia Difficulty swallowing Gastric reflux Former smoker CPAP (continuous positive airway pressure) dependence Sleep apnea Shortness of breath on exertion History of echocardiogram Obstructive sleep apnea IBS (irritable bowel syndrome) Hypertension Depression Anxiety Home Medications ?Medication ?Instructions ?Recorded ?Last Taken ?Type alprazolam 0.5 mg tablet (Xanax) 0.5 mg PO QHS PRN anxiety 09/26/22 Unknown History amlodipine 5 mg tablet 5 mg PO DAILY 09/26/22 04/04/23 History bupropion HCl 150 mg tablet,12 hr 150 mg PO DAILY 09/26/22 Unknown History sustained-release (Wellbutrin SR) lisinopril 10 mg tablet 10 mg PO DAILY 09/26/22 04/04/23 History sertraline 100 mg tablet (Zoloft) 250 mg PO QHS 09/26/22 Unknown History trazodone 150 mg tablet 100 - 150 mg PO DAILY 09/26/22 Unknown History pantoprazole 40 mg tablet,delayed 40 mg PO QHS #30 tabs 09/21/24 Unknown Rx release (Protonix) oxycodone-acetaminophen 5 mg-325 1 tab PO Q6H PRN PRN Pain 3 days 09/26/24 Unknown Rx mg tablet #12 TABLETS Allergy/AdvReac Type Severity Reaction Status Date / Time acetaminophen (From Vicodin) Allergy Mild Nausea/Vom/ Verified 09/26/24 09:52 Diarrhea hydrocodone (From Vicodin) Allergy Mild Nausea/Vom/ Verified 09/26/24 09:52 Diarrhea Family History Aunt Colon cancer Cancer lung Grandfather Heart disease Surgical History S/P wisdom tooth extraction Social History household members: spouse and children housing: house number of children: 3 current occupational status: employed current occupation: [employer] Smoking Status: Current some day smoker tobacco type: cigarettes alcohol intake: current alcohol intake frequency: a few times a month substance use type: does not use seatbelt use: always do you feel safe at home: Yes additional social history: - Inna garcia ROS ROS ED Constitutional Constitutional ED: Denies chills, fever(s) or weight loss Eyes Eyes: Denies change in vision or diplopia ENT ENT ED: Denies ear pain, rhinorrhea or sore throat Cardiovascular Cardiovascular: Denies chest pain, orthopnea, palpitations or racing heartbeat Respiratory/Chest Respiratory/Chest: Denies cough, dyspnea or orthopnea Gastrointestinal Gastrointestinal: Denies abdominal pain, diarrhea, nausea or vomiting Genitourinary Genitourinary ED: Denies dysuria, hematuria or urinary frequency Musculoskeletal Musculoskeletal: Reports other Details: See history of present illness ; Denies arthralgias or myalgias Integumentary Denies abscess or rash Neurologic Neurologic: Denies headache(s) or weakness Psychiatric Psychiatric: Denies anxiety, depression, suicidal ideation or suicidal thoughts Endocrine Endocrinology: Denies polydipsia, polyphagia or polyuria Allergic/Immunologic Allergic/Immunologic ED: Denies mouth swelling, tongue swelling or urticaria EXAM Physical Exam Const Vital Signs: 09/26/24 09:49 09/26/24 10:09 09/26/24 10:35 Temperature 99 F 98 F Temperature Source Oral Pulse Rate 50 L 50 L Pulse Rate [1 (Initial Baseline)] Pulse Rate [2] Pulse Rate [3] Pulse Rate [4] Pulse Rate [5] Respiratory Rate 18 18 Respiratory Rate [1 (Initial Baseline)] Respiratory Rate [2] Respiratory Rate [3] Respiratory Rate [4] Respiratory Rate [5] Respiratory Effort Blood Pressure 142/98 H 166/103 H Blood Pressure [1 (Initial Baseline)] Blood Pressure [2] Blood Pressure [3] Blood Pressure [4] Blood Pressure [5] Blood Pressure Mean 112 Baseline BP 166/103 Pulse Ox 98 100 Oxygen Delivery Method Room Air Room Air Oxygen Delivery Method [2] Oxygen Delivery Method [3] Oxygen Delivery Method [4] Oxygen Delivery Method [5] Oxygen Delivery Method [6] Oxygen Flow Rate (L/min) 2 Oxygen Flow Rate (L/min) [2] Oxygen Flow Rate (L/min) [3] Oxygen Flow Rate (L/min) [4] Oxygen Flow Rate (L/min) [5] EtCo2 (Normal 35-45 , high quality CPR 10-20 & ROSC>/=40mmHg 33 EtCo2 (Normal 35-45 , high quality CPR 10-20 & ROSC>/=40mmHg [1 (Initial Baseline)] EtCo2 (Normal 35-45 , high quality CPR 10-20 & ROSC>/=40mmHg [2] EtCo2 (Normal 35-45 , high quality CPR 10-20 & ROSC>/=40mmHg [3] EtCo2 (Normal 35-45 , high quality CPR 10-20 & ROSC>/=40mmHg [4] EtCo2 (Normal 35-45 , high quality CPR 10-20 & ROSC>/=40mmHg [5] 09/26/24 10:38 09/26/24 10:52 09/26/24 10:57 Temperature Temperature Source Pulse Rate 57 L 70 Pulse Rate [1 (Initial Baseline)] 52 L Pulse Rate [2] 50 L Pulse Rate [3] 54 L Pulse Rate [4] 51 L Pulse Rate [5] 58 L Respiratory Rate 16 16 Respiratory Rate [1 (Initial Baseline)] 16 Respiratory Rate [2] 20 H Respiratory Rate [3] 20 H Respiratory Rate [4] 18 Respiratory Rate [5] 14 Respiratory Effort Blood Pressure 142/87 H 120/91 H Blood Pressure [1 (Initial Baseline)] 166/103 H Blood Pressure [2] 166/103 H Blood Pressure [3] 116/100 H Blood Pressure [4] 164/100 H Blood Pressure [5] 142/87 H Blood Pressure Mean Baseline BP Pulse Ox 99 99 Oxygen Delivery Method Room Air Oxygen Delivery Method [2] Nasal Cannula Oxygen Delivery Method [3] Nasal Cannula Oxygen Delivery Method [4] Nasal Cannula Oxygen Delivery Method [5] Nasal Cannula Oxygen Delivery Method [6] Nasal Cannula Oxygen Flow Rate (L/min) Oxygen Flow Rate (L/min) [2] 4 Oxygen Flow Rate (L/min) [3] 4 Oxygen Flow Rate (L/min) [4] 4 Oxygen Flow Rate (L/min) [5] 4 EtCo2 (Normal 35-45 , high quality CPR 10-20 & ROSC>/=40mmHg 35 35 EtCo2 (Normal 35-45 , high quality CPR 10-20 & ROSC>/=40mmHg [1 (Initial Baseline)] 100 EtCo2 (Normal 35-45 , high quality CPR 10-20 & ROSC>/=40mmHg [2] 33 EtCo2 (Normal 35-45 , high quality CPR 10-20 & ROSC>/=40mmHg [3] 99 EtCo2 (Normal 35-45 , high quality CPR 10-20 & ROSC>/=40mmHg [4] 33 EtCo2 (Normal 35-45 , high quality CPR 10-20 & ROSC>/=40mmHg [5] 36 09/26/24 11:00 09/26/24 11:02 Temperature Temperature Source Pulse Rate 70 Pulse Rate [1 (Initial Baseline)] Pulse Rate [2] Pulse Rate [3] Pulse Rate [4] Pulse Rate [5] Respiratory Rate 16 Respiratory Rate [1 (Initial Baseline)] Respiratory Rate [2] Respiratory Rate [3] Respiratory Rate [4] Respiratory Rate [5] Respiratory Effort Normal Blood Pressure 138/90 H Blood Pressure [1 (Initial Baseline)] Blood Pressure [2] Blood Pressure [3] Blood Pressure [4] Blood Pressure [5] Blood Pressure Mean Baseline BP Pulse Ox 99 Oxygen Delivery Method Oxygen Delivery Method [2] Oxygen Delivery Method [3] Oxygen Delivery Method [4] Oxygen Delivery Method [5] Oxygen Delivery Method [6] Oxygen Flow Rate (L/min) Oxygen Flow Rate (L/min) [2] Oxygen Flow Rate (L/min) [3] Oxygen Flow Rate (L/min) [4] Oxygen Flow Rate (L/min) [5] EtCo2 (Normal 35-45 , high quality CPR 10-20 & ROSC>/=40mmHg 35 EtCo2 (Normal 35-45 , high quality CPR 10-20 & ROSC>/=40mmHg [1 (Initial Baseline)] EtCo2 (Normal 35-45 , high quality CPR 10-20 & ROSC>/=40mmHg [2] EtCo2 (Normal 35-45 , high quality CPR 10-20 & ROSC>/=40mmHg [3] EtCo2 (Normal 35-45 , high quality CPR 10-20 & ROSC>/=40mmHg [4] EtCo2 (Normal 35-45 , high quality CPR 10-20 & ROSC>/=40mmHg [5] Positive well nourished and well developed General Appearance ED: well developed and NAD HEENT Reports normocephalic, head/scalp atraumatic and moist mucous membranes Eyes PERRL and EOMs intact bilaterally Neck no lymphadenopathy, supple and no JVD Resp normal respiratory effort and clear to auscultation bilaterally Cardio regular rate, regular rhythm and no murmurs GI normal to inspection, nondistended, normoactive bowel sounds and non-tender Palpation: soft Back/Spine no CVA tenderness and normal ROM Extremity Extremity Narrative: There is an obvious fracture dislocation of the right ankle. There is tenting of the skin medially. Distally the toes appear of normal color. Sensation is preserved. General Extremety ED: Negative for edema General Extremity: Negative for edema Neuro oriented x3 and CN's II-XII intact bilaterally Sensorium / Orientation: alert Motor Exam: strength 5/5 throughout Psych mental status grossly normal Mood & Affect: Negative for depressed or tearful Skin Skin Narrative: Abrasions right foot ankle PROC Procedures Procedural Sedation 1 (Initial Baseline): Consent Signed: Yes Any Problems With Anesthesia: No You/Your family experience fever (hyperthermia) w/anesthesia: No Sedation medication: Propofol Dose: 120 Route: IV Total Moderate Sedation Units: 11 Maliampati Score: Class II ASA Classification: I MDM MDM MDM Narrative Medical decision making narrative: Differential diagnosis includes but not limited to fracture dislocation abrasion laceration neurovascular injury tendon injury ligamentous injury Patient provided informed written consent for the use of propofol for procedural sedation. Patient received 1 mg/kg bolus followed by half milligram per kilogram bolus to achieve adequate sedation and maintain sedation throughout the procedure. Using standard reduction technique the ankle was reduced. A small amount of bacitracin and Telfa was placed over the abrasion over the medial aspect of the ankle. After reduction the toes were pink with good capillary refill. Patient was then placed in a well-padded Ortho-Glass posterior stirrup splint. Post splinting the toes are pink with normal sensation. Patient recovered from the sedation without any difficulty. There were no significant intraprocedure events noted. My independent interpretation the plain films of the right tibia/fibula is no proximal tibia or fibular fracture. My independent interpretation's plain films of the right ankle is an acute trimalleolar fracture with mortise disruption My independent interpretation of the plain films of the right foot is no acute fracture of the foot Patient has not seen a local orthopedist. Her son has seen [facility]. Dr. Stack is on-call for them. Patient will be given crutches made nonweightbearing. I will write for Percocet for pain. Home-going instructions discussed with patient and her who noted understanding. Return if worsening or concerns History & Record Review Discussion w/independent historian: Patient and Significant other Radiography Diagnostic Testing: Clinical Impression(s) from Imaging Studies Ankle X-Ray 09/26/24 10:09 IMPRESSION: Acute medial and lateral malleolar fractures (Irene type B). Reading Location: [facility] Foot X-Ray 09/26/24 10:13 IMPRESSION: No acute osseous foot fracture. Visualization is slightly limited by overlying casting material. Reading Location: [facility] Tibia/Fibula X-Ray 09/26/24 10:13 IMPRESSION: No acute fracture of the proximal tibia or fibula. See same day ankle/foot radiographs for discussion of distal fractures. Reading Location: [facility] Management Discussion w/another healthcare provider: Automotive Software Engineer (Dr Stack) Discharge Plan Triage Chief Complaint: Fall ED Provider: Malick Green Dx/Rx/DC Orders Clinical Impression: Fall, Closed dislocation of ankle, Abrasion of ankle, right, Closed trimalleolar fracture of right ankle Instructions: ED Ankle Fracture Prescriptions: New oxycodone-acetaminophen 5-325 mg tablet 1 tab PO Q6H PRN PRN (Reason: Pain) 3 Days Qty: 12 0RF No Action sertraline [Zoloft] 100 mg tablet 250 mg PO QHS trazodone 150 mg tablet 100 - 150 mg PO DAILY alprazolam [Xanax] 0.5 mg tablet 0.5 mg PO QHS PRN (Reason: anxiety) bupropion HCl [Wellbutrin SR] 150 mg tablet sustained-release 12 hr 150 mg PO DAILY lisinopril 10 mg tablet 10 mg PO DAILY amlodipine 5 mg tablet 5 mg PO DAILY pantoprazole [Protonix] 40 mg tablet,delayed release (DR/EC) 40 mg PO QHS Qty: 30 3RF Primary Care Provider: Maxime Villa Referrals: Maxime Villa MD [Primary Care Provider] - Liban Stack DO [Med Staff - Active Staff] - As soon as possible (for orthopedics ) Print Language: Ukrainian Disposition Disposition: Home, Self Care
--- NOTE | 2024-09-26 10:13 | RAD_ITS ---
PROCEDURE: TIBIA FIBULA 2 VIEWS 09/26/2024 REASON FOR EXAM: INJURY TECHNIQUE: 3 views of the right tibia and fibula COMPARISON: None. FINDINGS: Bones: No acute fracture of the proximal tibia or fibula. See same day ankle/foot radiographs for discussion of distal fractures. Joints: Normal alignment at the knee joint. Soft tissues: Soft tissues are unremarkable. Other: Right lower leg casting material. RAD/Tibia & Fibula 2 Views IMPRESSION: No acute fracture of the proximal tibia or fibula. See same day ankle/foot rad iographs for discussion of distal fractures. Reading Location: [id number]
--- NOTE | 2024-09-26 10:13 | RAD_ITS ---
PROCEDURE: FOOT MIN 3 VIEWS 09/26/2024 REASON FOR EXAM: INJURY TECHNIQUE: 3 views of the right foot. COMPARISON: Same day right ankle and right tibia/fibula radiographs. FINDINGS: Bones: No acute osseous foot fracture. Visualization is slightly limited by overlying casting material. Joints: Normal alignment. Joint spaces preserved. No arthropathic features. Soft tissues: Soft tissue swelling of the lower ankle. RAD/Foot min 3 Views IMPRESSION: No acute osseous foot fracture. Visualization is slightly limited by overlying casting material. Reading Location: [id number]
[2024-09-26] MEDS: Propofol 200 MG/20 ML Vial IV BOLUS (10:37)
== END 2024-09-26 11:54 | disposition home or self-care (01) ==
PROVIDERS: Emergency Provider Emergency Medicine; PCP Family Medicine; Visit Provider Emergency Medicine
DX: S82.851A Displaced trimalleolar fracture of right lower leg, initial encounter for closed fracture (principal); S90.511A Abrasion, right ankle, initial encounter; W10.9XXA Fall (on) (from) unspecified stairs and steps, initial encounter; I10 Essential (primary) hypertension; K21.9 Gastro-esophageal reflux disease without esophagitis; F32.A Depression, unspecified; F41.9 Anxiety disorder, unspecified; G47.33 Obstructive sleep apnea (adult) (pediatric); F17.210 Nicotine dependence, cigarettes, uncomplicated; Z79.899 Other long term (current) drug therapy
CPT/HCPCS: 27818; 29515; 73590; 73610; 73630; 96374; 99152; 99285

== ENCOUNTER → 2024-09-29 | Outpatient (CLI) | payer BC, SELFPAY ==
--- NOTE | 2024-09-29 07:48 | CT_ITS ---
PROCEDURE: EXTREMITY LOWER WITHOUT CONTRA 09/29/2024 REASON FOR EXAM: PRE OP/RLL FX TECHNIQUE: Axial CT images of the right ankle obtained without intravenous contrast. Coronal and Sagittal reconstruction series were provided. One or more dose reduction techniques were used (e.g., Automated exposure control, adjustment of the mA and/or kV according to patient size, use of iterative reconstruction technique CONTRAST: None RADIATION DOSE SUMMARY: CTDlvol: 15.35 mGy DLP: 384.46 mGycm COMPARISON: None FINDINGS: Bones: Nondisplaced oblique fracture of the lateral malleolus. Nondisplaced avulsion fracture of the anterior aspect of the the fracture line extends into the articular surface. No significant displacement is seen. Medial malleolus. Joints: The ankle mortise is asymmetrical. Soft Tissues: Swelling. CT/Extremity Lower without Contra IMPRESSION: Nondisplaced oblique fracture of the lateral malleolus as well as an avulsion f racture of the medial malleolus along its anterior aspect. This abuts the articular surface. Asymmetry of the ankle mortise. Soft tissue swelling. Reading Location: [place] [id number]
[2024-09-29 10:34] LABS: Erythrocyte Sedimentation Rate 8 mm/hr (0-30)
[2024-09-29 10:36] LABS: Absolute Lymphocyte Count 1.35 X10^3/uL (0.83-4.51); Absolute Neutrophil Count 2.7 X10^3/uL (2.0-7.7); Basophil# 0.05 X10^3/uL; Basophil% 1.1 % (0-1); Eosinophil# 0.18 X10^3/uL; Eosinophils% 3.8 % (0-5); Hematocrit 34.3 % (37-47); Hemoglobin 11.3 g/dL (12.0-15.0); Lymphocyte # 1.35 X10^3/ul (0.83-4.51); Lymphocyte % 28.8 % (19-41); Mean Corp Hgb Conc 32.9 g/dL (32-36); Mean Corpuscular Hgb 28.5 pg (27.0-32.0); Mean Corpuscular Volume 86.4 fL (81-99); Mean Platelet Vol. 11.5 fl (6.2-12.0); Monocyte# 0.41 X10^3/uL; Monocyte% 8.8 % (0-10); NRBC Flagged by Analyzer 0 % (0-5); Neutrophil # 2.67 X10^3/uL (2.7-7.7); Neutrophil % 57.1 % (47-70); Platelet Count 169 K/mm3 (150-450); RBC Distribution Width CV 14.2 % (11.6-14.6); RBC Distribution Width SD 44.6 fl (35.1-43.9); Red Blood Count 3.97 M/mm3 (4.2-5.4); White Blood Count 4.7 K/mm3 (4.4-11.0)
[2024-09-29 10:48] LABS: ALB/GLOB Ratio 1.4 RATIO (0.9-2.4); AST(SGOT) 15 U/L (<=31); Alanine Aminotransfer ALT/SGPT 7 U/L (<=34); Albumin, Serum 3.7 g/dL (3.5-5.0); Alkaline Phosphatase 39 U/L (35-104); Anion Gap 10 (5-15); BUN 12 mg/dL (4-19); BUN/Creat Ratio 13.7 RATIO (10-20); Calcium,Total 8.7 mg/dL (7.6-11.0); Carbon Dioxide 21.5 mmol/L (21.0-32.0); Chloride 106 mmol/L (98-108); Cholesterol 192 mg/dL (<=200); Creatinine, Serum 0.89 mg/dL (0.70-1.20); EST Glomerular Filtration Rate 82 (>60); Globulin 2.5 g/dL (2.2-4.2); Glucose 87 mg/dL (70-99); High Density Lipoprotein 56 mg/dL; Low Density Lipoprotein Calc. 118 mg/dL; Potassium 3.8 mmol/L (3.3-5.1); Protein, Total 6.2 g/dL (5.9-8.4); Sodium Level 137 mmol/L (133-145); Total Bilirubin 0.27 mg/dL (0.00-1.30); Triglycerides 88 mg/dL; Very Low Density Lipoprotein 18 mg/dL (5-40)
[2024-09-29 11:04] LABS: Iron Binding Capacity,Total 299 ug/dL (250-450)
[2024-09-29 11:08] LABS: CRP < 3.00 mg/L (0.0-3.0); Ferritin 15 ng/mL (22-378); Iron 67 ug/dL (50-170); Iron Binding Capacity,Unsat 232 ug/dL (228-428); PERCENT IRON SATURATION 22.4 % (13-59); Vitamin B12 526 pg/mL (180-914); Vitamin D,25 Hydroxy 28.4 ng/mL (30-100)
== END | disposition home or self-care (01) ==
PROVIDERS: Internal Medicine Gastroenterology; PCP Family Medicine; Referring Provider Physician Assistant Surgical; Visit Provider Physician Assistant Surgical
DX: S82.841A Displaced bimalleolar fracture of right lower leg, initial encounter for closed fracture (principal); R53.83 Other fatigue; Z79.899 Other long term (current) drug therapy
CPT/HCPCS: 73700; 80053; 80061; 82306; 82607; 82728; 83540; 83550; 85025; 85652; 86140

== ENCOUNTER 2024-10-04 05:49 | Day surgery (SDC) | payer BC, SELFPAY ==
--- NOTE | 2024-09-29 07:47 | EKG12_ITS ---
Test Reason : PRE OP Blood Pressure : */* mmHG Vent. Rate : 57 BPM Atrial Rate : 57 BPM P-R Int : 140 ms QRS Dur : 86 ms QT Int : 422 ms P-R-T Axes : 62 39 50 degrees QTcB Int : 410 ms Sinus bradycardia Otherwise normal ECG Confirmed by Yony Corral ([id number]), market editor LUCERO SCHUMACHER ([id number]) on 09/29/2024 10:15:21 AM Referred By: Liban Stack Confirmed By: Yony Corral
[2024-10-04] VITALS (9 sets, daily range): BP systolic 92–124; BP diastolic 72–80; PULSE 66–81; RESP 16–18; TEMP 36.4–36.6; O2SAT 94–97; BMI 29.8
[2024-10-04 06:24] LABS: Internal QC Validated? YES +Cl - CLEAR BKGD; Pregnancy, Urine Negative Negative
--- NOTE | 2024-10-04 06:56 | PCM.PRE.AN2 ---
ASA Classification* ASA Classification ASA Classification: 2 Assessment & Plan Anesthesia* Anesthesia Assessment Anesthesia Assessment: Discussed sedation and/or anesthesia options, risks, benefits, and alternatives with patient/parents/legal guardian/POA. Questions invited. The patient/parents/legal guardian/POA seems to understand and agrees to proceed with anesthesia plan. Reviewed the physical assessment, medical history, allergy history and patient home medications list prior to surgery/procedure/anesthetic and documented any changes. Performed airway and anesthesia risk assessments. Anesthesia Type Anesthesia Type: General and Block Anesthesia Focused Assessment* Temperature: 97.8 F Pulse Rate: 69 Blood Pressure: 121/73 Respiratory Rate: 16 Pulse Ox: 97 Airway Assessment Mouth opens: >3 cm Mallampati Score: II Focused Labs Anesthesia Preop lab: CBC WBC 4.7 K/mm3 (4.4-11.0) 09/29/24 08:08 09/29/24 RBC 3.97 M/mm3 (4.2-5.4) L 09/29/24 08:08 09/29/24 Hgb 11.3 g/dL (12.0-15.0) L 09/29/24 08:08 09/29/24 Hct 34.3 % (37-47) L 09/29/24 08:08 09/29/24 Plt Count 169 K/mm3 (150-450) 09/29/24 08:08 09/29/24 CHEMISTRY Potassium 3.8 mmol/L (3.3-5.1) 09/29/24 08:08 09/29/24 Sodium 137 mmol/L (133-145) 09/29/24 08:08 09/29/24 Magnesium 2.3 mg/dL (1.6-2.6) 07/03/18 17:10 07/03/18 BUN 12 mg/dL (4-19) 09/29/24 08:08 09/29/24 Creatinine 0.89 mg/dL (0.70-1.20) 09/29/24 08:08 09/29/24 Glucose 87 mg/dL (70-99) 09/29/24 08:08 09/29/24 TSH 0.70 uIU/mL (0.358-3.74) 03/20/22 08:34 03/20/22 COAG Urine Test Negative Negative 10/04/24 06:05 10/04/24 Pre-Assessment Diagnosis/Proposed Procedure Planned Operative Procedure(s): RIGHT ANKLE ORIF Anesthesia History Anesthesia History - office technologist: Anesthesia History - office technologist Hx Hospitalization No 10/01/24 08:53 Any Problems With Anesthesia [ No 09/26/24 10:55 1 (Initial Baseline)] Any Problems With Anesthesia No 10/01/24 08:53 Cholinesterase deficiency No 10/01/24 08:53 You/Your Family Experience No 10/01/24 08:53 fever (hyperthermia) with Relationship Recent Exposure to Contagious No 10/04/24 06:20 Disease Does patient have nerve No 10/01/24 08:53 stimulator Patient instructed to have device shut off --Does patient have Pacemaker No 10/04/24 06:20 or ICD? When Was Last Pacemaker Check QUESTION #4 FULL TEXT: You/Your Family Experience fever (hyperthermia) with Anesthesia Last Oral Intake Last Oral intake: Last Oral Intake NPO since 00:00 10/04/24 06:20 Meds taken in AM with sips of No 10/04/24 06:20 water? Meds patient instructed to take am of surgery PONV PONV - office technologist: PONV - office technologist Female Yes 10/01/24 08:53 HX of Motion Sickness No 10/01/24 08:53 HX of N/V After Surgery No 10/01/24 08:53 Non-Smoker Yes 10/01/24 08:53 Duration of Surgery greater Yes 10/01/24 08:53 than 60 minutes Number of Risk Factors 3 10/01/24 08:53 PONV Score Moderate Risk 10/01/24 08:53 Height & Weight Height & Weight: Anesthesia: Height & Weight Height 5 ft 2 in 10/04/24 06:20 Weight: 74 kg 10/04/24 06:20 Body Mass Index (BMI) 29.8 10/04/24 06:20 Respiratory Assessment Respiratory Assessment - office technologist: Respiratory Tract Infection Hx - office technologist Hx Respiratory Tract Infection No 10/01/24 08:53 STOP Sleep Apnea STOP Sleep Apnea - office technologist: STOP Sleep Apnea - office technologist Hx Hypertension Yes: CONTROLLED WITH MEDS 10/01/24 08:53 Hx Sleep Apnea Yes 10/01/24 08:53 CPAP Yes: NONCOMPLIANT 10/01/24 08:53 BIPAP No 10/01/24 08:53 Do you snore loudly (louder than talking or can be heard Do you often feel tired/ fatigued/ sleepy during daytime? Has anyone observed you stop breathing during sleep? STOP Results Positive 10/01/24 08:53 QUESTION #5 FULL TEXT : Do you snore loudly (louder than talking or can be heard through closed doors)? 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 Specify any problems Hx of Preganancy in last 3 No 10/01/24 08:53 Months Nurse Filling Out Transfusion DSCHRIBER 10/01/24 08:53 & Questions: Date: 10/01/24 10/01/24 08:53 Time: 08:55 10/01/24 08:53 Patient unable to answer at this time (ie. confused, unrespo /Reproduction History /Reproductive History - office technologist: /Reproductive Hx- office technologist Hx Now No 10/01/24 08:53 Gestational Age (in weeks): EDC: Hx Hx Para Hx Section SAB No 10/01/24 08:53 Active Medications Active Medications: Current Medications Generic Name Dose Route Start Last Admin Trade Name Freq PRN Reason Stop Dose Admin Cefazolin Sodium 2 gm/ N/A 20 mls @ 400 mls/hr 10/04/24 07:30 IV 10/04/24 07:32 INTRAOP ONE PFSH Medical History Fatty liver Back pain Ochoa esophagus History of hiatal hernia History of pain when walking Wears contact lenses Wears glasses Alcohol use Anemia Gastric reflux Former smoker CPAP (continuous positive airway pressure) dependence Shortness of breath on exertion History of echocardiogram IBS (irritable bowel syndrome) Hypertension Depression Anxiety Home Medications ?Medication ?Instructions ?Recorded ?Last Taken ?Type alprazolam 0.5 mg tablet (Xanax) 0.5 mg PO QHS PRN anxiety 09/26/22 Unknown History amlodipine 5 mg tablet 5 mg PO DAILY 09/26/22 04/04/23 History bupropion HCl 150 mg tablet,12 hr 150 mg PO DAILY 09/26/22 Unknown History sustained-release (Wellbutrin SR) lisinopril 10 mg tablet 10 mg PO DAILY 09/26/22 04/04/23 History sertraline 100 mg tablet (Zoloft) 200 mg PO QHS 09/26/22 Unknown History trazodone 150 mg tablet 150 mg PO QHS 09/26/22 Unknown History pantoprazole 40 mg tablet,delayed 40 mg PO QHS #30 tabs 09/21/24 Unknown Rx release (Protonix) oxycodone-acetaminophen 5 mg-325 1 tab PO Q6H PRN PRN Pain 3 days 09/26/24 Unknown Rx mg tablet #12 TABLETS bupropion HCl 300 mg 24 hr tablet, 300 mg PO DAILY 10/01/24 Unknown History extended release Allergy/AdvReac Type Severity Reaction Status Date / Time acetaminophen (From Vicodin) Allergy Mild Nausea/Vom/ Verified 10/01/24 08:48 Diarrhea hydrocodone (From Vicodin) Allergy Mild Nausea/Vom/ Verified 10/01/24 08:48 Diarrhea Family History Aunt Colon cancer Cancer lung Grandfather Heart disease Surgical History Hx of colonoscopy S/P wisdom tooth extraction Social History household members: spouse and children housing: house number of children: 3 current occupational status: employed current occupation: [employer] Smoking Status: Former smoker alcohol intake: current alcohol intake frequency: a few times a month substance use type: does not use seatbelt use: always do you feel safe at home: Yes 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
[2024-10-04] MEDS: 0.9% Normal Saline (1000mL) 1,000 ML 15 ML IV (06:59)
--- NOTE | 2024-10-04 07:21 | RAD_ITS ---
PROCEDURE: ANKLE 2 VIEWS 10/04/2024 REASON FOR EXAM: INTRAOPERATIVE ORIF RT ANKLE TECHNIQUE: 5 views of the right ankle COMPARISON: Right ankle radiographs 09/26/2024 FINDINGS: Intraoperative fluoroscopic imaging of the right ankle ORIF. Anatomic alignment of the lateral and medial malleoli fractures with plate and screw fixation. Soft tissue swelling. RAD/Ankle 2 Views IMPRESSION: Intraoperative imaging as described. Reading Location: [id number]
[2024-10-04] MEDS: Cefazolin 2 GM in Syringe IV (07:42)
--- NOTE | 2024-10-04 09:31 | PCM.OPRPT ---
Operative Report (Standard) Operative Information Date of Procedure: 10/04/24 Pre-Operative Diagnosis: Right ankle bimalleolar fracture dislocation Post-Operative Diagnosis: Right ankle bimalleolar fracture dislocation Surgery/Procedure Performed: 1. Right ankle open reduction internal fixation medial and lateral malleoli 2. Fluoroscopic stress examination under anesthesia right ankle acls specialist: Yes Information Broker: Aura Gonzales Tasks completed by technology assistant: Opening & closing, Implanting device, Hemostasis: Electrocautery and Retracting Type of Anesthesia: General/Regional RN Documented Start/Stop Times: Operation Date: 10/04/24 07:30 Case Time Into Pre-Op 10/04/24 06:03 Anesthesia Start 10/04/24 07:34 Into Room 10/04/24 07:34 Out of Pre-Op 10/04/24 07:34 Procedure Start 10/04/24 07:59 Procedure Start Time: 07:59 Procedure Stop Time: 09:33 Select all DRAINS/GRAFTS/IMPLANTS that apply: Implanted device Implanted device details: Arthrex 4-hole titanium distal fibular locking plate with combination of cortical and locking screws, 50 mm x 4.0 mm partially-threaded cancellous screws x 2 Estimated Blood Loss: 25 cc Specimen collected: No Description of surgery: Patient was seen in preoperative holding area. They were identified by name, medical record number, date of . The operative extremity was marked with a surgical marker. We confirmed informed consent with the patient and all questions were answered to her satisfaction. In the preoperative holding area, a popliteal block and adductor canal was administered by the anesthesia staff. At time of the procedure, patient was brought to the operative suite and positioned supine on a standard operating table. All bony prominences were well-padded. General anesthesia was administered. After adequate anesthesia, a well-padded pneumatic tourniquet was applied to the right upper thigh. A large bump was placed in the patient's right hip. The right lower extremity was elevated on bath blankets for fluoroscopic imaging and access to the limb during surgery. We secured this with tape as well as the nonoperative extremity. We then performed a timeout with all parties in attendance and agree with the side, site, operation to be performed. No concerns were voiced and elected to proceed. 2 g Ancef was administered prior to incision by the anesthesia staff. We then prepped and draped the operative extremity using a ChloraPrep. While stabilizing the ankle, the operative extremity was exsanguinated with an Esmarch bandage. Tourniquet was inflated to 250 mmHg, which remained inflated for approximately 75 minutes. Incision was planned over the lateral malleolus and distal fibular shaft centered over the level of the fracture. Skin was sharply incised with a 15 blade scalpel. Superficial bleeders were cauterized with Bovie cautery. We then bluntly dissected to the level of the fascia. Fascia was opened with Bovie cautery. We examined closely for the superficial peroneal nerve which was not encountered throughout surgery. We bluntly dissected down to the level of the periosteum. Hohmann retractors were placed after fracture was encountered as well as the fibula. Periosteum was elevated at the level of the fracture approximately 2 to 3 mm. A [id number] reduction tenaculum was used to reapproximate the fracture site with excellent anatomic reduction. We then prepared for a lag screw for fixation. We first planned our lag screw perpendicular to the fracture site anterior superior to posterior inferior. We overdrilled the near cortex with a 3.0 mm drill bit. We then withdrew the drill bit and drilled the far cortex with a 2.0 mm drill bit. We then measured and placed an appropriately sized lag by technique 3.0 mm cortical screw with excellent compression across the fracture site. Reduction tenaculum was removed with excellent security at the fracture site. We then selected our plate on the back table. Fracture was slightly below the tibial plafond and I selected a distal fibular locking plate. Plate was provisionally held with K wires and then compressed the bone with cortical screws proximal and distal to the fracture site. The distal cluster was then filled with locking screws unit cortically. Shaft was filled with locking screws. Fracture was stable. I then turned my attention medially. Longitudinal incision was made sharply overlying the medial malleolus. Crossing veins were cauterized. Incarcerated periosteum was debrided. Fracture was debrided. Anatomic reduction was achieved with a pointed reduction clamp. 2 parallel K wires were placed through the tip of the medial malleolus. I measured for our cancellous screws. Near cortex was drilled. Screws were then placed and sequentially tightened there is excellent compression at the fracture site. Wires were removed. Final fluoroscopic images were obtained. Cotton and external rotation stress test was performed and stable syndesmosis was demonstrated. Tourniquet was deflated. Hemostasis was achieved with unipolar cautery. Fascial layer was used to cover the plate laterally. Skin was then closed in layers in each incision. Dermis was reapproximated with buried 2-0 Vicryl suture and skin reapproximated in simple fashion with a 3-0 nylon suture in the medial incision and interrupted Allg?wer-Donati technique with a 3-0 nylon suture. Bulky sterile compression dressing was applied. Well-padded 3 sided AO type splint, short leg in maximal dorsiflexion was applied and molded. Patient was awakened from anesthesia. She tolerated the procedure well without apparent complication. She was safely extubated the operative suite and transferred to her gurney and subsequently to PACU in stable condition. Need for skilled certified anesthesiologist assistant: Aura Gonzales PA-C was critical to the outcome of the case. During the course of the procedure the physician certified anesthesiologist assistant played a vital role. Her intimate knowledge of my steps in the procedure aided in safe and expedient completion of the procedure. The PA played a vital role in positioning particularly in obtaining the appropriate positioning. The PA was also vital in the retraction of soft tissues during the exposure and protecting vital structures. The PA was also vital and obtaining fracture reduction and assisting with hardware placement. She also played a vital role in closure and splint application with my direct supervision. Post Operative Plan: Weightbearing: Nonweightbearing operative extremity Antibiotics: 2 g Ancef x 1 dose preoperatively DVT Prophylaxis: Aspirin 81 mg twice daily for DVT prophylaxis x 6 weeks Perkins: None Dressing: Maintain splint, keep it clean dry and intact until follow-up X-Rays: 2 weeks postop in the office Pain Medication: Perco oxycodone prescription provided as an outpatient. Tylenol and Ibuprofen encouraged. Follow-up: 2 weeks post-operatively in the office Surgical Findings: Stable fixation bimalleolar ankle fracture. Syndesmosis stable after fixation of bony fragments. Complications Complications: No Admit VTE Documentation VTE Present on Admission: No VTE Mechan Device Prophylaxis: SCD's VTE Pharm Prophylaxis ordered?: Yes
--- NOTE | 2024-10-04 09:48 | PCM.POST.ANE ---
Anesthesia: Postop Eval I Current Vital Signs Temperature: 97.6 F Pulse Rate: 78 Blood Pressure: 111/72 Respiratory Rate: 18 Pulse Ox: 94 Oxygen Delivery Method: Nasal Cannula Oxygen Flow Rate (L/min): 2 Assessment Airway patent: Yes Spontaneous unlabored respirations: Yes Mental status: Awake and Calm nausea: No Vomiting: No Anesthesia Complication: No Fluid Hydration Crystalloid volume administer (ml): 1,700 Total IV fluid infused: 1,700 Progress Note Post-operative progress note: Pt comfortable, 0/10 pain in R ankle, Post op Eval 1 completed. Anesthesia document: Postop Eval 1 completed: Yes
[2024-10-04] MEDS: Ketorolac 15 MG/ML Vial IV (09:56)
--- NOTE | 2024-10-04 10:00 | POSTOPAN2_ITS ---
Anesthesia Postop Eval I Sum Postop Eval Completion status Anesthesia document: Postop Eval 1 completed: Yes Anesthesia Postop Eval I Summary Anesthesia Postop Eval I Summary: Anesthesia Postop Eval I: Assessment Summary Airway patent Yes 10/04/24 09:51 SECRETARIAL TEACHER.DBAK Spontaneous unlabored Yes 10/04/24 09:51 SECRETARIAL TEACHER.DBAK respirations Mental status Awake,Calm 10/04/24 09:51 SECRETARIAL TEACHER.DBAK nausea No 10/04/24 09:51 SECRETARIAL TEACHER.DBAK Vomiting No 10/04/24 09:51 SECRETARIAL TEACHER.DBAK Anesthesia Postop Eval I: Fluid Summary Crystalloid volume administer 1,700 10/04/24 09:51 SECRETARIAL TEACHER.DBAK (ml) Colloids volume administered ( ml) Blood Product volume administered (ml) Total IV fluid infused 1,700 10/04/24 09:51 SECRETARIAL TEACHER.DBAK Anesthesia Postop Eval I: Summary Notes Anesthesia Complication No 10/04/24 09:51 SECRETARIAL TEACHER.DBAK Anesthesia Complication Comment: Post-operative progress note Pt comfortable, 0/ 10/04/24 09:51 SECRETARIAL TEACHER.DBAK 10 pain in R ankle , Post op Eval 1 completed. Anesthesia: Postop Eval II Evaluation Mental status: Awake Pain Level: 0 nausea: No Vomiting: No
--- NOTE | 2024-10-04 10:00 | PCM.POSTANE2 ---
Anesthesia Postop Eval I Sum Postop Eval Completion status Anesthesia document: Postop Eval 1 completed: Yes Anesthesia Postop Eval I Summary Anesthesia Postop Eval I Summary: Anesthesia Postop Eval I: Assessment Summary Airway patent Yes 10/04/24 09:51 STEP DOWN SPECIALIST.DBAK Spontaneous unlabored Yes 10/04/24 09:51 STEP DOWN SPECIALIST.DBAK respirations Mental status Awake,Calm 10/04/24 09:51 STEP DOWN SPECIALIST.DBAK nausea No 10/04/24 09:51 STEP DOWN SPECIALIST.DBAK Vomiting No 10/04/24 09:51 STEP DOWN SPECIALIST.DBAK Anesthesia Postop Eval I: Fluid Summary Crystalloid volume administer 1,700 10/04/24 09:51 STEP DOWN SPECIALIST.DBAK (ml) Colloids volume administered ( ml) Blood Product volume administered (ml) Total IV fluid infused 1,700 10/04/24 09:51 STEP DOWN SPECIALIST.DBAK Anesthesia Postop Eval I: Summary Notes Anesthesia Complication No 10/04/24 09:51 STEP DOWN SPECIALIST.DBAK Anesthesia Complication Comment: Post-operative progress note Pt comfortable, 0/ 10/04/24 09:51 STEP DOWN SPECIALIST.DBAK 10 pain in R ankle , Post op Eval 1 completed. Anesthesia: Postop Eval II Evaluation Mental status: Awake Pain Level: 0 nausea: No Vomiting: No
== END 2024-10-04 11:39 | disposition home or self-care (01) ==
LOC: SDC 05:50 → AC 05:52
PROVIDERS: Anesthesiology; PCP Family Medicine; Referring Provider Student in an Organized Health Care Education/Training Program; Visit Provider Student in an Organized Health Care Education/Training Program
PROC: (CPT 27814; principal; 2024-10-04 07:10)
DX: S82.841A Displaced bimalleolar fracture of right lower leg, initial encounter for closed fracture (principal); W10.9XXA Fall (on) (from) unspecified stairs and steps, initial encounter; I10 Essential (primary) hypertension; F32.A Depression, unspecified; F41.9 Anxiety disorder, unspecified; K21.9 Gastro-esophageal reflux disease without esophagitis; Z79.899 Other long term (current) drug therapy; Z87.891 Personal history of nicotine dependence
CPT/HCPCS: 27814; 01480; 64445; 73600; 76000; 81025; 93005; C1713

== ENCOUNTER 2025-03-31 08:34 | Day surgery (SDC) | payer BC, SELFPAY ==
[2025-03-31] VITALS (8 sets, daily range): BP systolic 102–123; BP diastolic 62–71; PULSE 66–76; RESP 12–16; TEMP 36.6–36.8; O2SAT 97–100; BMI 30.7
[2025-03-31 08:54] LABS: Internal QC Validated? YES +Cl - CLEAR BKGD; Pregnancy, Urine Negative Negative; Record Kit Lot#,Urine Preg 0000980607
[2025-03-31] MEDS: Lactated Ringers 1,000 ML 15 ML IV (09:18)
== END 2025-03-31 11:28 | disposition home or self-care (01) ==
LOC: EN 08:35 → AC 08:36
PROVIDERS: Anesthesiology; PCP Family Medicine; Referring Provider Family Medicine; Visit Provider Internal Medicine Gastroenterology
PROC: 0DJ08ZZ Inspection of Upper Intestinal Tract, Via Natural or Artificial Opening Endoscopic (ICD-10-PCS; CPT 43235; principal; 2025-03-31 09:40)
DX: K22.70 Barrett's esophagus without dysplasia (principal); K44.9 Diaphragmatic hernia without obstruction or gangrene; I10 Essential (primary) hypertension; Z87.891 Personal history of nicotine dependence; Z79.899 Other long term (current) drug therapy; K21.9 Gastro-esophageal reflux disease without esophagitis; K58.2 Mixed irritable bowel syndrome
CPT/HCPCS: 43239; 81025; 88305; J2405

== ENCOUNTER → 2025-04-29 | Outpatient (CLI) | payer BC, SELFPAY ==
--- OUTSIDE RECORDS SUMMARY | 2025-04-29 18:52 | XMS RPT_ITS | CCD ---
Author Organization [facility] Care Team Providers Care Belt Polisher Name Role Phone Dr. Dheeraj Villa Primary Care Provider Dr. Dheeraj Villa Referring Provider Vicki ENTERPRISE ENGINEER, JOHN Madera Attending Provider Dr. Dheeraj Villa Primary Care Provider [phone] Dr. Dheeraj Villa Referring Provider Dr. Porfirio Huertas Attending Provider [phone] Dr. Porfirio Huertas Other Provider [phone] Dheeraj Villa Primary Care Provider [phone] Dr. Dheeraj Villa Referring Provider Dr. Porfirio Huertas Attending Provider Dr. Dheeraj Villa Primary Care Provider [phone] Dr. Dheeraj Villa Referring Provider Dr. Porfirio Huertas Attending Provider Dr. Maxime Villa MD Primary Care Provider Dr. Maxime Villa MD Referring Provider Dr. Porfirio Huertas DO Attending Provider Dr. Porfirio Huertas DO Referring Provider Dr. Malick Green DO Emergency Provider Dr. Malick Green DO Attending Provider Aura Murphy Attending Provider [phone] Aura Murphy Referring Provider Kiya UNDERWOOD, Dr. Monroy Other Provider Jimenez BAY-CEmily Other Provider [phone] Shayna KAPADIA, Dr. Bhakta Attending Provider Zaria UNDERWOOD, Dr. Louie Referring Provider Zaria UNDERWOOD, Dr. Louie Attending Provider Daisy KAPADIA, Dr. Swartz Primary Care Provider Daisy KAPADIA, Dr. Swartz Referring Provider [phone] Kiya UNDERWOOD, Dr. Monroy Attending Provider SAHARA MARRERO Referring Unavailable RANNEY, CHRISTOPHER B Primary Care Unavailabl SAHARA Fam Attending Unavailable RANNEY, CHRISTOPHER B Primary Care Unavailamena Villa MD, Dr. Swartz Primary Care Physicia n Kiya UNDERWOOD, Dr. Monroy Attending Physician Tori Dukes Attending Physician [phone] Kiya UNDERWOOD, Dr. Monroy Nurse Practitioner SELF, SELF Referring Unavailable Porfirio Huertas Attending Unavailable Ranney, Christopher Referring Unavailable Ranney, Christopher Primary Care Unavailable Liban Stack Attending Unavailable GeorgiattLiban fair Referring Unavailable Ranney, Christopher Primary Care Unavailable Emily Gaona NP Attending Unavailable Ranney, Christopher Primary Care Unavailable Porfirio Huertas Consulting Unavailable Aura Gonzales Attending Unavailable Aura Gonzales Referring Unavailable Ranney, Christopher Primary Care Unavailable Emily Gaona NP Consulting Unavailable Ranney, Christopher Primary Care Unavailable Malick Green Attending Unavailable Liban Stack Attending Unavailable Spittle, Liban Referring Unavailable Ranney, Christopher Primary Care Unavailable FriendPorfirio Attending Unavailable Ranney, Christopher Referring Unavailable Ranney, Christopher Primary Care Unavailable Tori Hooker Attending Unavailable Ranney, Christopher Referring Unavailable Ranney, Christopher Primary Care Unavailable Yony Corral Attending Unavailable Liban Stack Referring Unavailable Maxime Villa Primary Care Unavailable FriendPorfirio Attending Unavailable FriendPorfirio Consulting Unavailable Maxime Villa Referring Unavailable Maxime Villa Primary Care Unavailable Friend, Porfirio Attending Unavailable Maxime Villa Primary Care Unavailable Maxime Villa Referring Unavailable Daisy [facility] Primary Care Unavailable Friend, Porfirio Attending Unavailable Friend, Porfirio Referring Unavailable Allergies Allergy Classification Reported Allergen(s) Allergy Type Date of Onset Reaction(s) Facility (12 sources) Acetaminophen Drug Allergy 3 Nausea/Vom/Diar [facility] (13 sources) HYDROcodone Drug Allergy 3 Nausea/Vom/Diar [facility] (1 source) Acetaminophen / HYDROcodone; Translations: [HYDROCODONE-ACET AMINOPHEN] Drug Allergy 0 [facility] Repository (1 source) Acetaminophen Drug Allergy 5 [facility] Repository (1 source) HYDROcodone Drug Allergy 5 [facility] Repository Medications Current Medications Medication Drug Class(es) Dates Sig (Normalized) Sig (Original) ALPRAZolam 0.5 mg oral tablet (13 sources) Benzodiazepine Start: 09-26-2022 take 1 tablet by mouth at bedtime as needed for anxiety amLODIPine 5 mg oral tablet (13 sources) Dihydropyridine Calcium Channel Mike Start: 09-26-2022 take 1 tablet by mouth once daily 24 hr buPROPion hydrochloride 300 mg extended release oral tablet (18 sources) Aminoketone Start: 10-01-2024 take 1 tablet by mouth once daily Start: 09-26-2022 take 1 tablet by mouth once da edison cholecalciferol 0.01 mg oral capsule (2 sources) Vitamin D Start: 03-23-2025 take 1 capsule by mouth once daily lisinopril 10 mg oral tablet (13 sources) Angiotensin Converting Enzyme Inhibitor Start: 09-26-2022 take 1 tablet by mouth once daily Multivitamin tablet (2 sources) Start: 03-23-2025 Start: 03-23-2025 Multivitamin t ablet Active 1 {tbl} PO EVERY MORNING March 23, 2025 12:00am Complies with drug therapy sertraline 100 mg oral tablet (13 sources) Serotonin Reuptake Inhibitor Start: 09-26-2022 take 2 tablets by mouth at bedtime Start: 09-26-2022 Sertraline (Zo loft) 100 mg tablet Active 250 mg PO AT BEDTIME September 26, 2022 12:00am Start: 09-26-2022 take 1 tablet by pedro th once daily Sertraline (Zoloft) 100 mg tablet Active 100 MG PO DAILY September 26, 2022 12:00am traZODone hydrochloride 150 mg oral tablet (13 sources) Serotonin Reuptake Inhibitor Start: 09-26-2022 take 1 tablet by mouth at bedtime Vitamin E (Purevita Vitamin E) 180 mg/2 mL drops (2 sources) Start: 03-23-2025 take 180 mg by mouth once daily Start: 03-23-2025 Vitamin E (Pur maxwell Vitamin E) 180 mg/2 mL drops Active mg PO March 23, 2025 12:00am Complies with drug therapy Completed/Discontinued Medications Medication Drug Class(es) Dates Sig (Normalized) Sig (Original) acetaminophen 325 mg / oxyCODONE hydrochloride 5 mg oral tablet (6 sources) Opioid Agonist Start: 09-26-2024 End: 01-19-2025 Oxycodone-Acetamin ophen 5-325 mg tablet Discontinued 1 {tbl} PO EVERY 6 HOURS NEEDED as needed for Pain 12 3 0 September 26, 2024 January 19, 2025 3:28pm Closed dislocation of ankle Dislocation of unspecified ankle joint, initial encounter pantoprazole 40 mg delayed release oral tablet (20 sources) Proton Pump Inhibitor Start: 04-22-2023 End: 02-07-2025 take 1 tablet by mouth at bedtime Pantoprazole (Protonix) 40 mg tablet,delayed release (DR/EC) Discontinued 40 mg PO AT BEDTIME 30 3 September 21, 2024 8:15am February 07, 2025 11:15am Problems Active Problems Problem Classification Problem Date Documented Da te Episodic/Chronic Abdominal hernia (14 sources) Hiatal hernia; Translations: [Diaphragmatic hernia without obstruction or gangrene] Onset: 04-15-2025 01-22-2024 Episodic Anxiety disorders (13 sources) Anxiety; Translations: [Anxiety disorder, unspecified] 09-26-2022 Chronic Comment on above: ON MED E Codes: Fall (6 sources) Fall; Translations: [Unspecified fall, initial encounter] 09-26-2024 Episodic Esophageal disorders (14 sources) Ochoa's esophagus; Translations: [Ochoa's esophagus without dysplasia] Onset: 04-15-2025 01-22-2024 Chronic Essential hypertension (13 sources) Hypertensive disorder; Translations: [Essential (primary) hypertension] 09-26-2022 Chronic Comment on above: CONTROLLED ON MED Fracture of lower limb (8 sources) Closed trimalleolar fracture; Translations: [Displaced trimalleolar fracture of right lower leg, initial encounter for closed fracture] Onset: 10-02-2024 09-26-2024 Episodic Joint disorders and dislocations; trauma-related (6 sources) Closed traumatic dislocation ankle joint; Translations: [Dislocation of unspecified ankle joint, initial encounter] 09-26-2024 Episodic Mood disorders (13 sources) Depressive disorder; Translations: [Depression] 09-26-2022 Chronic Comment on above: ON MED Nausea and vomiting (12 sources) Nausea; Translations: [Nausea] 01-22-2024 Episodic Other disorders of stomach and duodenum (11 sources) Gastroparesis syndrome; Translations: [Gastroparesis] 01-22-2024 Episodic Other gastrointestinal disorders (19 sources) Irritable bowel syndrome; Translations: [Irritable bowel syndrome without diarrhea] 09-26-2022 Chronic Other gastrointestinal disorders (7 sources) Irritable bowel syndrome without diarrhea; Translations: [Irritable bowel syndrome] 09-26-2022 Chronic Other gastrointestinal disorders (2 sources) Dysphagia; Translations: [Dysphagia, unspecified] 03-31-2025 Episodic Other gastrointestinal disorders (1 source) Dysphagia, unspecified; Translations: [Dysphagia, unspecified] Onset: 04-15-2025 Episodic Other liver diseases (11 sources) Steatosis of liver; Translations: [Fatty (change of) liver, not elsewhere classified] 01-22-2024 Chronic Other liver diseases (1 source) Fatty (change of) liver, not elsewhere classified; Translations: [Fatty (change of) liver, not elsewhere classified] Onset: 08-18-2024 Chronic Other non-traumatic joint disorders (2 sources) Pain in right ankle and joints of right foot; Translations: [Pain in right ankle and joints of right foot] Onset: 10-08-2024 Episodic Other skin disorders (13 sources) Chloasma; Translations: [Chloasma] 09-26-2022 Episodic Comment on above: Avoid sun exposure, see derm Other skin disorders (2 sources) Chloasma; Translations: [Other dyschromia] 09-26-2022 Episodic Residual codes; unclassified (13 sources) Obstructive sleep apnea syndrome; Translations: [Obstructive sleep apnea (adult) (pediatric)] 09-26-2022 Chronic Residual codes; unclassified (13 sources) Family history of polyp of colon; Translations: [Family history of colonic polyps] 09-26-2022 Episodic Comment on above: 2 brothers Residual codes; unclassified (1 source) Localized edema; Translations: [Localized edema] Onset: 04-26-2025 Episodic Superficial injury; contusion (6 sources) Abrasion, right ankle, initial encounter; Translations: [Abrasion of right ankle] 09-26-2024 Episodic Unclassified (4 sources) for orthopedics Unclassified (1 source) Acute cough; Translations: [Acute cough] Onset: 03-05-2025 Past or Other Problems Problem Classification Problem Date Documented Da te Episodic/Chronic Malaise and fatigue (1 source) Other fatigue; Translations: [Other fatigue] Onset: 07-21-2024 Episodic Other aftercare (1 source) Other custodial (current) drug therapy; Translations: [Other custodial (current) drug therapy] Onset: 07-21-2024 Episodic Results Test Name Value Interpretation Reference Range Facility Surgical pathology reportOrd ered By: Chen Alonzo on 04-08-2025 Surgical pathology study [facility] EGD Reporton 03-31-2025 EGD Report [facility] Medical Records Department [address] [place] [address] EGD Report MR#: [id number] Acct: [id number] Name: MERLE HOFF Rep #: [id number] : 1980 44 From: Porfirio Huertas DO PCP: Dr. Maxime Villa MD Status:[facility] Patient Name: Merle Hoff Procedure Date: 03/31/2025 10:33 AM Date of : 1980 Age: 44 Procedure: Upper GI endoscopy Indications: Dysphagia, Heartburn, Esophageal reflux, Follow-up of Ochoa's esophagus Providers: Porfirio Huertas DO Referring MD: Dheeraj Villa Medicines: Monitored Anesthesia Care Patient Profile: This is a 44 year old female. Refer to note in patient chart for documentation of history and physical. Patient has symptoms of dysphagia with both liquids and solids and chronic heartburn. Complications: No immediate complications. Procedure: Pre-Anesthesia Assessment: - Prior to the procedure, a History and Physical was performed, and patient medications and allergies were reviewed. The patient is competent. The risks and benefits of the procedure and the sedation options and risks were discussed with the patient. All questions were answered and informed consent was obtained. Patient identification and proposed procedure were verified by the physician in the pre-procedure area. Mental Status Examination: alert and oriented. Airway Examination: normal oropharyngeal airway and neck mobility. Respiratory Examination: clear to auscultation. CV Examination: normal. Prophylactic Antibiotics: The patient does not require prophylactic antibiotics. Prior Anticoagulants: The patient has taken no anticoagulant or antiplatelet agents except for NSAID medication. ASA Grade Assessment: II - A patient with mild systemic disease. After reviewing the risks and benefits, the patient was deemed in satisfactory condition to undergo the procedure. The anesthesia plan was to use monitored anesthesia care (MAC). Immediately prior to administration of medications, the patient was re-assessed for adequacy to receive sedatives. The heart rate, respiratory rate, oxygen saturations, blood pressure, adequacy of pulmonary ventilation, and response to care were monitored throughout the procedure. The physical status of the patient was re-assessed after the procedure. After obtaining informed consent, the endoscope was passed under direct vision. Throughout the procedure, the patient's blood pressure, pulse, and oxygen saturations were monitored continuously. The gastroscope was introduced through the mouth, and advanced to the second part of duodenum. The upper GI endoscopy was accomplished without difficulty. The patient tolerated the procedure well. Scope In: 10:36:38 AM Scope Out: 10:40:21 AM Total Procedure Duration Time 0 hours 3 minutes 43 seconds Findings: Abnormal motility was noted in the lower third of the esophagus. The cricopharyngeus was normal. There are extra peristaltic waves in the esophageal body. The distal esophagus/lower esophageal sphincter is spastic, but gives up passage to the endoscope. Secondary peristaltic waves are noted. The Z-line was irregular and was found 40 cm from the incisors. Biopsies were taken with a cold forceps for histology. Verification of patient identification for the specimen was done. Estimated blood loss was minimal. No gross lesions were noted in the entire examined stomach. No gross lesions were noted in the entire examined duodenum. Impression: - Abnormal esophageal motility. - Z-line irregular, 40 cm from the incisors. Biopsied. - No gross lesions in the entire stomach. - No gross lesions in the entire examined duodenum. Recommendation: - Discharge patient to home. - Resume previous diet. - Continue present medications. - Await pathology results. -Increase PPI to twice a day - Consider esophageal manometry Procedure Code(s): --- Professional --- 44479, Esophagogastroduodenoscop y, flexible, transoral; with biopsy, single or multiple CPT copyright 2021 [employer]. All rights reserved. The codes documented in this report are preliminary and upon flosser review may be revised to meet current compliance requirements. Porfirio Huertas DO 03/31/2025 10:51:09 AM This report has been signed electronically. Number of Addenda: 0 Note Initiated On: 03/31/2025 10:33 AM 03/31/25 1051 Date Porfirio Huertas DO Cosigner Signature: Date (if indicated) CC: Dr. Maxime Villa MD; Porfirio Huertas DO Date Dictated: 03/31/25 1033 Date Transcribed: Alterations Sewer: DEMOND Signed [facility] MR/OP.[place] 03-31-2025 MR/OP.[facility] Medical Records Department [address] [place] [address] Provation Physician Letter MR#: [id number] Acct: [id number] Name: LUIS EDUARDOMERLE CARBAJALN Rep #: [id number] : 1980 44 From: Porfirio Huertas DO PCP: Dr. Maxime Villa MD Status:[facility] 03/31/2025 Dheeraj Villa [address] [place] [address] Re : Upper GI endoscopy procedure for Merle Hoff Dear Dr. Villa This procedure was performed on March. My impressions and recommendations are as follows: Impressions : - Abnormal esophageal motility. - Z-line irregular, 40 cm from the incisors. Biopsied. - No gross lesions in the entire stomach. - No gross lesions in the entire examined duodenum. Recommendations : - Discharge patient to home. - Resume previous diet. - Continue present medications. - Await pathology results. -Increase PPI to twice a day - Consider esophageal manometry My findings are described in the full procedure note, which is enclosed. If I can be of further assistance, please feel free to contact me at . Sincerely, Porfirio Huertas DO 03/31/2025 10:51:09 AM This report has been signed electronically. 03/31/25 1051 Date Porfirio March Signature: Date (if indicated) CC: Dr. Maxime Villa MD; Porfirio Huertas DO Date Dictated: 03/31/25 1033 Date Transcribed: Alterations Sewer: RF Signed [facility] MR/POSTOP.Aubree 03-31-2025 MR/POSTOP.[facility] Medical Records Department [address] [place] [address] Anesthesia Postop Eval I 03/31/25 1058 MR#: [id number] Acct: [id number] Name: MERLE HOFF Rep #: [id number] : 1980 44 From: Volodymyr Squires PCP: Dr. Maxime Villa MD Status:[facility] Y Race: C Location: [place] [address] Anesthesia: Postop Eval I Current Vital Signs Temperature: 98 F Pulse Rate: 76 Blood Pressure: 123/67 Respiratory Rate: 16 Pulse Ox: 98 Oxygen Delivery Method: Room Air Assessment Airway patent: Yes Spontaneous unlabored respirations: Yes Mental status: Awake and Calm nausea: No Vomiting: No Anesthesia Complication: No Fluid Hydration Crystalloid volume administer (ml): 400 Total IV fluid infused: 400 Progress Note Anesthesia document: Postop Eval 1 completed: Yes 03/31/25 1059 Date Volodymyr Teealison Signature: Date CC: Signed Normal [facility] MR/HISLHBMG5gy 03-31-2025 [facility] Medical Records Department [address] [place] [address] Anesthesia Postop Eval II 03/31/25 1408 MR#: [id number] Acct: [id number] Name: MERLE HOFF Rep #: [id number] : 1980 44 From: Jonny Gómez MD PCP: Dr. Maxime Villa MD Status:[facility] Y Race: C Location: [place] Anesthesia Postop Eval I Sum Postop Eval Completion status Anesthesia document: Postop Eval 1 completed: Yes Anesthesia Postop Eval I Summary Anesthesia Postop Eval I Summary: Anesthesia Postop Eval I: Assessment Summary Airway patent Yes 03/31/25 10:59 [email or web address] Spontaneous unlabored Yes 03/31/25 10:59 [email or web address] respirations Mental status Awake,Calm 03/31/25 10:59 [email or web address] nausea No 03/31/25 10:59 [email or web address] Vomiting No 03/31/25 10:59 [email or web address] Anesthesia Postop Eval I: Fluid Summary Crystalloid volume administer 400 03/31/25 10:59 [email or web address] (ml) Colloids volume administered ( ml) Blood Product volume administered (ml) Total IV fluid infused 400 03/31/25 10:59 [email or web address] Anesthesia Postop Eval I: Summary Notes Anesthesia Complication No 03/31/25 10:59 [email or web address] Anesthesia Complication Comment: Post-operative progress note Anesthesia: Postop Eval II Evaluation Mental status: Awake and Calm Pain Level: 1 nausea: No Vomiting: No Complications Anesthesia Complication: No 03/31/25 1408 Date [facility] Date CC: Signed Normal [facility] ,Urineon 03-31-2025 Beta HCG ( test) Ql (U) Negative Normal [facility] Comment on above: Result Comment: Very dilute urine specimens, as indicated by a low specific gravity, may not contain patient care representative levels of hCG. If is still suspected, a first morning urine specimen should be collected 48 hours later and tested. Performed By: #### L [id number] #### [facility] Laboratory [facility] [place], [address] Surgery Specimen Level Francisco 03-31-2025 Surgery Specimen Level IV Patient Age/Sex Location Account Attending Physician MERLE HOFF 44/F EN [id number] Porfirio Huertas DO Specimen: [id number] Received: 03/31/25 Status: LYNNETTE Riveraisma Num: [id number] Spec Type: EGD BIOPSY Subm Dr: Porfirio Huertas DO HEADER OPERATION: EGD, biopsy PRE-OP DIAGNOSIS: Ochoa' esophagus, hiatal hernia, difficulty swallowing TISSUE SUBMITTED: A- Distal esophagus biopsy MICROSCOPIC DIAGNOSIS A. Distal esophagus, biopsy: * Squamous mucosa with reactive changes. * Columnar mucosa negative for goblet cell metaplasia. * Negative for dysplasia. MICROSCOPIC DESCRIPTION Slides are reviewed. GROSS DESCRIPTION A. Received in fixative is one container labeled with the patient's name and designated Distal esophagus biopsy." The specimen consists of three irregular fragments of sesay tissue that measure 0.4 to 0.6 cm. The specimen is totally submitted in one cassette. AK 03/31/2025 CPT:73749 Patient Age/Sex Location Account Attending Physician MERLE HOFF 44/F EN [id number] Porfirio Huertas DO Signed (signature on file) Dr. Chen Alonzo MD 04/08/25 1014 Normal [facility] Comment on above: Performed By: #### P SUIV ####[facility] [id number] [place], [place], [id number] Urine testOrdered By: Joey Shultz on 03-31-2025 HCG ( test) Ql (U) Negative [facility] Comment on above: Very dilute urine sp ecimens, as indicated by a low specificgravity, may not contain patient care representative levels of hCG. If is still suspected, a first morning urinespecimen should be collected 48 hours later and tested. Gastroenterology Visit Repor ton 03-23-2025 Gastroenterology Visit Report [facility] Gastroenterology [address] [place] [address] OFFICE VISIT Date of Service: 03/23/25 MR#: [id number] Acct: [id number] Name: MERLE HOFF Rep #: [id number] : 1980 Provider: LUCIANO White Age/Sex: 44/F Location: [facility] [place] Status: Signed Intake Vital Signs 10/04/24 06:20 Height 5 ft 2 in Intake Visit Reasons: Barretts esophagus/ADD PER GEO Chief Complaint: Reflux Executive Search Consultant Required: No Accompanied by: Self Is patient in pain?: No Allergies acetaminophen (From Vicodin) Allergy (Mild, Verified 03/23/25 14:57) Nausea/Vom/Diarrhea hydrocodone (From Vicodin) Allergy (Mild, Verified 03/23/25 14:57) Nausea/Vom/Diarrhea Medications ???Medication ???Instructions ???Recorded ???Confirmed ???Type alprazolam 0.5 mg tablet (Xanax) 0.5 mg PO QHS PRN anxiety 09/26/22 03/23/25 History amlodipine 5 mg tablet 5 mg PO DAILY 09/26/22 03/23/25 Hi story bupropion HCl 150 mg tablet,12 hr 150 mg PO DAILY 09/26/22 03/23/25 History sustained-release (Wellbutrin SR) lisinopril 10 mg tablet 10 mg PO DAILY 09/26/22 03/23/25 H istory sertraline 100 mg tablet (Zoloft) 200 mg PO QHS 09/26/22 03/23/25 H istory trazodone 150 mg tablet 150 mg PO QHS 09/26/22 03/23/25 Hi story bupropion HCl 300 mg 24 hr tablet, 300 mg PO DAILY 10/01/24 5 History extended release pantoprazole 40 mg tablet,delayed 40 mg PO QHS #30 tabs 02/07/25 Rx release (Protonix) cholecalciferol (vitamin D3) 10 10 mcg PO QDAY 03/23/25 03/23/25 H istory mcg (400 unit) capsule multivitamin 1 tab PO QAM 03/23/25 03/23/25 His tory vitamin E 180 mg/2 mL oral drops mg PO 03/23/25 03/23/25 History (Purevita Vitamin E) [facility] Medical History Fatty liver Back pain Ochoa esophagus History of hiatal hernia History of pain when walking Wears contact lenses Wears glasses Alcohol use Anemia Gastric reflux Former smoker CPAP (continuous positive airway pressure) dependence Shortness of breath on exertion History of echocardiogram IBS (irritable bowel syndrome) Hypertension Depression Anxiety Surgical History Hx of colonoscopy S/P wisdom tooth extraction Family History Aunt Colon cancer Cancer lung Grandfather Heart disease Social History household members: spouse and children housing: house number of children: 3 current occupational status: employed current occupation: [employer] Smoking Status: Former smoker alcohol intake: current alcohol intake frequency: a few times a month substance use type: does not use seatbelt use: always do you feel safe at home: Yes additional social history: - Inna garcia HPI HPI Chief Complaint: Reflux Details: MERLE HOFF, is a 44 F who presents to the office today for follow-up. OV 15.24 Recently decreased pantoprazole 40 mg once daily as directed. Alternating constipation, diarrhea, and abdominal cramping. Nearly constant bloating. After having a bowel movement will have mucous leaking from rectum for rest of the day. Hemorrhoids also continue. Heartburn after certain foods, times of increased stress, and occasionally during the night. GET 3.13.24 normal 48.06 minutes abd US 4.30.24 There is no demonstrated mass lesion. Median liver stiffness measured 4.9 kPa. OV 8.8.24 pt reports continued symptoms of nausea, diarrhea, abd pain, gas/bloating, heartburn, and difficulty swallowing her pills. OV 11.8.24 pt reports that her symptoms have improved from previous visit. Continues to have difficulty swallowing her pills. Has occasional abdominal discomfort from bloating. OV 2.7.25 pt reports alternating bowel movements, but states that it is improved from before. pt reports that pantoprazole is helpful for her HB. US and elastography 08.05.24 hepatic measurement 17.3cm with fatty infiltration, stiffness measures 4.9kPa. OV 8.6.25 pt reports that she has been feeling well, ongoing symptoms, but "nothing new". Continues with Pantoprazole. States it may be time for another EGD, last was in . OV 03/23/25 patient reports continued reflux symptoms every other day. She is currently taking pantoprazole 40 mg daily. In the past she is taking this twice a day. Symptoms seem to be worse in nighttime and will often wake up with reflux. Patient also having a hard time swallowing her pills which is unlike her. She denies any problems swallowing foods but will choke on liquids on occasion. She denies nausea or vomiting. ROS Const Constitutional: Positive for fatigue and heada (more content not included)... [facility] Office Visit ([facility]) ----- MERLE HOFF ([id number]) 1980 F Date Time Provider Department 03/05/25 1:30 PM SAHARA MARRERO WOYANET During your visit today, we recorded the following information about you: Temperature Pulse Respiration Blood pressure 98.4 degrees 90/minute 18/minute 140/84 Weight Last Period 74.8 kg 02/21/25 Sahara Marrero PA 03/05/2025 2:21 PM Signed [facility] Subjective Merle Munoz Luis Eduardo is a 44 year old female. Patient presents with: Cough: X 2 weeks HPI The patient is a 44-year-old female presenting with a persistent cough. Cough: - Persistent cough x2 weeks. - Cough is intermittent, with periods of perceived improvement followed by recurrence. - Cough is more pronounced in the late afternoon to evening. - Sometimes productive, sometimes dry with a "hoarse" sound. - Associated rhinorrhea; denies congestion. - Denies fevers. - Occasional smoker. - Son has similar symptoms. PAST MEDICAL HISTORY Diagnosis Date Rheumatoid arthritis(714.0) 02/28/2010 No past surgical history on file. ALLERGIES Vicodin [Hydrocodone-Acetaminophe n] MEDICATIONS modafinil (PROVIGIL) 100 mg tablet Take 100 mg by mouth once daily. fluticasone (FLONASE) 50 mcg/actuation nasal spray Use 2 Sprays in each nostril once daily. Rinse mouth after use. sertraline HCl (ZOLOFT ORAL) Take by mouth. amLODIPine (NORVASC) 5 mg tablet Take 5 mg by mouth once daily. buPROPion XL (WELLBUTRIN XL) 300 mg 24 hr tablet Take 300 mg by mouth once daily. cholecalciferol, Vitamin D3, (VITAMIN D3) 1,250 mcg (50,000 unit) cap capsule Take 50,000 Units by mouth one time a week. lisinopril (ZESTRIL, PRINIVIL) 10 mg tablet Take 10 mg by mouth once daily. sertraline (ZOLOFT) 100 mg tablet TAKE 1 AND 1/2 (ONE AND ONE-HALF) TABLETS BY MOUTH EVERY DAY cetirizine-pseudoephedrin e (ZYRTEC-D) 5-120 mg per tablet Take 1 tablet by mouth twice daily as needed. paroxetine hcl(PAXIL 40 MG TAB) Take one(1) tablet daily. alprazolam(XANAX 0.5 MG TAB) Take one(1) tablet two(2) times daily. TRAZODONE 100 MG TAB Take one(1) tablet at bedtime or as necessary predniSONE (DELTASONE) 20 mg tablet Take 2 tablets by mouth once daily for 5 days. albuterol HFA (PROVENTIL HFA, VENTOLIN HFA) 90 mcg/actuation inhaler Inhale 2 puffs as instructed every 4 hours as needed for wheezing/shortness of breath. benzonatate (TESSALON PERLE) 100 mg capsule Take 1 capsule by mouth three times a day as needed. FAMILY HISTORY Problem Relation Age of Onset Stroke Unknown Heart Unknown attack/angioplasty Hypertension Unknown Diabetes Unknown Arthritis Unknown Cancer Unknown SOCIAL HISTORY[1] Review of Systems Constitutional: (-) fever Ears/Nose/Mouth/Throat: (+) rhinorrhea, (+) nasal drainage, (-) nasal congestion, (-) sinus pressure Respiratory: (+) cough, (+) sputum production Objective BP 140/84 Pulse 90 Temp 36.9 ?C (98.4 ?F) Resp 18 Wt 74.8 kg (165 lb) LMP 02/21/2025 (Approximate) SpO2 97% Physical Exam General: Not in acute distress, normal appearance, well-developed, not toxic-appearing HEENT - Eyes: Conjunctivae normal - Ears: Right ear: Tympanic membrane normal, ear canal normal; Left ear: Tympanic membrane normal, ear canal normal - Nose/Sinuses: Nose normal - Oropharynx: Mucous membranes moist, oropharynx clear without erythema or exudate, uvula midline Cardiovascular - Rate/Rhythm: Normal rate and regular rhythm - Heart Sounds: Normal heart sounds Pulmonary - Lung Sounds: Mild wheezing - Respiratory Effort: Pulmonary effort normal Neurologic - Mental Status: Alert Skin: Skin warm and dry Lymphatic - Cervical: No cervical adenopathy { 1. Acute cough (R05.1) - Cough for 2 weeks with intermittent improvement and recurrence; occasional sputum production; mild wheezing on exam. - Chest X-ray ordered to rule out pneumonia; results normal, no evidence of pneumonia. - Start prednisone to reduce airway inflammation. - Start Tessalon Perles for cough suppression. - Start albuterol inhaler for wheezing. - Educated patient that viral coughs can last 4-6 weeks; antibiotics not indicated unless pneumonia is present. - Discussed that viral etiology is likely - Advised patient to have her son evaluated if symptoms persist or worsen. - Follow-up as needed for persistent or worsening symptoms. Recording using AWAK software for draft documentation of the visit was discussed with the patient/authorized patient care representative; all questions welcomed and answered. Patient/authorized patient care representative agreed to proceed Diagnosis and treatment plan were discussed and questions were answered to the patient's satisfaction. Pt acknowledged understanding of concepts and follow up plan. Specific signs and symptoms that would indicate the need for higher level of care were discussed (more content not included)... Normal [facility] XR CHEST 2V FRONTAL/LATon XR CHEST 2V FRONTAL/LAT * * *Final Repor t* * * DATE OF EXAM: Mar 05 2025 1:31PM WOX [id number] - XR CHEST 2V FRONTAL/LAT / PROCEDURE REASON: Acute cough * * * * Physician Interpretation * * * * EXAMINATION: CHEST RADIOGRAPH (2 VIEW FRONTAL and LATERAL) TECHNOLOGIST PROVIDED HISTORY: Acute cough CLINICAL HISTORY: 44 years old Female with Acute cough MQ: XC2_6 EXAM DATE/TIME: 03/05/2025 1:31 PM COMPARISON: Chest radiograph(s) dated 02/28/2010 RESULT: Lines, tubes, and devices: None. Lungs and pleura: No consolidation. No pleural effusion. No pneumothorax. Cardiomediastinal silhouette: Normal cardiomediastinal silhouette. Bones and soft tissues: Unremarkable. IMPRESSION: No acute radiographic abnormality. Alterations Sewer: ADDIS Transcribe Date/Time: Mar 05 2025 2:12P Dictated by : JOSE BENZ DO This examination was interpreted and the report reviewed and electronically signed by: JOSE BENZ DO on Mar 05 2025 2:13PM EST [id number] Normal [facility] Gastroenterology Visit Repor ton 01-19-2025 Gastroenterology Visit Report [facility] [address] [place] [address] OFFICE VISIT Date of Service: 01/19/25 MR#: [id number] Acct: [id number] Name: MERLE HOFF Rep #: [id number] : 1980 Provider: Porfirio Huertas DO Age/Sex: 44/F Location: [facility] [place] Status: Signed Intake Vital Signs 04/04/23 05:53 10/04/24 06:20 Height 5 ft 2 in 5 ft 2 in Intake Visit Reasons: 6 M FU Chief Complaint: Annual Allergies acetaminophen (From Vicodin) Allergy (Mild, Verified 10/01/24 08:48) Nausea/Vom/Diarrhea hydrocodone (From Vicodin) Allergy (Mild, Verified 10/01/24 08:48) Nausea/Vom/Diarrhea Medications ???Medication ???Instructions ???Recorded ???Confirmed ???Type alprazolam 0.5 mg tablet (Xanax) 0.5 mg PO QHS PRN anxiety 09/26/22 01/19/25 History amlodipine 5 mg tablet 5 mg PO DAILY 09/26/22 01/19/25 Hi story bupropion HCl 150 mg tablet,12 hr 150 mg PO DAILY 09/26/22 01/19/25 History sustained-release (Wellbutrin SR) lisinopril 10 mg tablet 10 mg PO DAILY 09/26/22 01/19/25 H istory sertraline 100 mg tablet (Zoloft) 200 mg PO QHS 09/26/22 01/19/25 H istory trazodone 150 mg tablet 150 mg PO QHS 09/26/22 01/19/25 Hi story pantoprazole 40 mg tablet,delayed 40 mg PO QHS #30 tabs 09/21/24 Rx release (Protonix) bupropion HCl 300 mg 24 hr tablet, 300 mg PO DAILY 10/01/24 5 History extended release PFSH Medical History Fatty liver Back pain Ochoa esophagus History of hiatal hernia History of pain when walking Wears contact lenses Wears glasses Alcohol use Anemia Gastric reflux Former smoker CPAP (continuous positive airway pressure) dependence Shortness of breath on exertion History of echocardiogram IBS (irritable bowel syndrome) Hypertension Depression Anxiety Surgical History Hx of colonoscopy S/P wisdom tooth extraction Family History Aunt Colon cancer Cancer lung Grandfather Heart disease Social History household members: spouse and children housing: house number of children: 3 current occupational status: employed current occupation: [employer] Smoking Status: Former smoker alcohol intake: current alcohol intake frequency: a few times a month substance use type: does not use seatbelt use: always do you feel safe at home: Yes 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 Gynecology established 09.26.22 noting difficulty with IBS and referred to GI. *BGI established 8.23.23 BM alternate between constipation (lack of BM or hard/small stools) with loose stools and abdominal cramping lasting all day for 1-2 days, with all BM she has mucus and will leak from her rectum uncontrollably; bloating is a daily issue. Hemorrhoids are also a problem. Intermittent GERD is also a problem, managed with PRN Zantac and TUMs. Feels a lot of her symptoms are stress related. Strong FH of colon cancer on both sides of her family; her parents have not experienced colon cancer to date. Last colonoscopy 10 years prior 04.04.23 EGD and Colonoscopy Bx???Contact 04.22.23 with results.???Start protonix???work at dietary changes and update clinic to discuss ongoing need for bowel management changes and possible hiatal hernia repair. OV 07.31.23 Recently decreased pantoprazole 40 mg once daily as directed. Alternating constipation, diarrhea, and abdominal cramping. Nearly constant bloating. After having a bowel movement will have mucous leaking from rectum for rest of the day. Hemorrhoids also continue. Heartburn after certain foods, times of increased stress, and occasionally during the night. GET 3.13.24 normal 48.06 minutes abd US 4.30.24 There is no demonstrated mass lesion. Median liver stiffness measured 4.9 kPa. OV 01.21.24 pt reports continued symptoms of nausea, diarrhea, abd pain, gas/bloating, heartburn, and difficulty swallowing her pills. OV 04.23. pt reports that her symptoms have improved from previous visit. Continues to have difficulty swallowing her pills. Has occasional abdominal discomfort from bloating. OV 07.23.25 pt reports alternating bowel movements, but states that it is improved from before. pt reports that pantoprazole is helpful for her HB. US and elastography 08.05.24 hepatic measurement 17.3cm with fatty infiltration, stiffness measures 4.9kPa. OV 8.6.25 pt reports that she has been feeling well, ongoing symptoms, but "nothing new". Continues with Pantoprazole. States it may be time for (more content not included)... Normal [facility] Ankle 2 Viewson 10-04-2024 Ankle 2 Views [facility] Imaging Services [address] [place], [place] [address] Ankle 2 Views MR#: [id number] Acct: [id number] Name: MERLE HOFF Rep #: [id number] : 1980 F 44 From: Salma Jones nd, MD PCP: Dr. Maxime Villa MD Status: [facility] Study: Ankle 2 Views Date of Exam: 10/04/24 Exam# [id number] Ordering Dr: Liban Stack DO PROCEDURE: ANKLE 2 VIEWS 10/04/2024 REASON FOR EXAM: INTRAOPERATIVE ORIF RT ANKLE TECHNIQUE: 5 views of the right ankle COMPARISON: Right ankle radiographs 09/26/2024 FINDINGS: Intraoperative fluoroscopic imaging of the right ankle ORIF. Anatomic alignment of the lateral and medial malleoli fractures with plate and screw fixation. Soft tissue swelling. RAD/Ankle 2 Views IMPRESSION: Intraoperative imaging as described. Reading Location: [facility] CC: Dr. Maxime Villa MD; Dr. Liban Stack DO Alterations Sewer: Signed [facility] MR/POSTOP.[facility] 10-04-2024 MR/POSTOP.[facility] Medical Records Department [address] [place] [id number] Anesthesia Postop Eval I 10/04/24 0948 MR#: [id number] Acct: [id number] Name: MERLE HOFF Rep #: [id number] : 1980 44 From: Fabrice Cuevas II, CRNA PCP: Dr. Maxime Villa MD Status:[facility] Y Race: C Location: [place] [address] Anesthesia: Postop Eval I Current Vital Signs Temperature: 97.6 F Pulse Rate: 78 Blood Pressure: 111/72 Respiratory Rate: 18 Pulse Ox: 94 Oxygen Delivery Method: Nasal Cannula Oxygen Flow Rate (L/min): 2 Assessment Airway patent: Yes Spontaneous unlabored respirations: Yes Mental status: Awake and Calm nausea: No Vomiting: No Anesthesia Complication: No Fluid Hydration Crystalloid volume administer (ml): 1,700 Total IV fluid infused: 1,700 Progress Note Post-operative progress note: Pt comfortable, 0/10 pain in R ankle, Post op Eval 1 completed. Anesthesia document: Postop Eval 1 completed: Yes 10/04/2451 Date Fabrice Cuevas II SAFETY SCIENTIST Cosigner Signature: Date CC: Signed Normal [facility] MR/[id number] 10-04-2024 MR/POSTOPAN2 [facility] Medical Records Department [address] [address] Anesthesia Postop Eval II 10/04/24 1000 MR#: [id number] Acct: [id number] Name: MERLE HOFF Rep #: [id number] : 1980 44 From: Sacha Mckenna MD PCP: Dr. Maxime Villa MD Status:[facility] Y Race: C Location: [place] [address] Anesthesia Postop Eval I Sum Postop Eval Completion status Anesthesia document: Postop Eval 1 completed: Yes Anesthesia Postop Eval I Summary Anesthesia Postop Eval I Summary: Anesthesia Postop Eval I: Assessment Summary Airway patent Yes 10/04/24 09:51 SAFETY SCIENTIST.DBAK Spontaneous unlabored Yes 10/04/24 09:51 SAFETY SCIENTIST.DBAK respirations Mental status Awake,Calm 10/04/24 09:51 SAFETY SCIENTIST.DBAK nausea No 10/04/24 09:51 SAFETY SCIENTIST.DBAK Vomiting No 10/04/24 09:51 SAFETY SCIENTIST.DBAK Anesthesia Postop Eval I: Fluid Summary Crystalloid volume administer 1,700 10/04/24 09:51 SAFETY SCIENTIST.DBAK (ml) Colloids volume administered ( ml) Blood Product volume administered (ml) Total IV fluid infused 1,700 10/04/24 09:51 SAFETY SCIENTIST.DBAK Anesthesia Postop Eval I: Summary Notes Anesthesia Complication No 10/04/24 09:51 SAFETY SCIENTIST.DBAK Anesthesia Complication Comment: Post-operative progress note Pt comfortable, 0/ 10/04/24 09:51 SAFETY SCIENTIST.DBAK 10 pain in R ankle , Post op Eval 1 completed. Anesthesia: Postop Eval II Evaluation Mental status: Awake Pain Level: 0 nausea: No Vomiting: No 10/04/24 1000 Date Sacha Mckenna MD Cosigner Signature: Date CC: Signed Normal [facility] Operative Reporton 5 Operative Report [facility] Medical Records Department [address] [place] [address] Operative Report 10/04/2431 MR#: [id number] Acct: [id number] Name: MERLE HOFF Rep #: [id number] : 1980 44 From: Liban Stack DO PCP: Dr. Maxime Villa MD Status:[facility] Location: [place] [address] Operative Report (Standard) Operative Information Date of Procedure: 10/04/24 Pre-Operative Diagnosis: Right ankle bimalleolar fracture dislocation Post-Operative Diagnosis: Right ankle bimalleolar fracture dislocation Surgery/Procedure Performed: 1. Right ankle open reduction internal fixation medial and lateral malleoli 2. Fluoroscopic stress examination under anesthesia right ankle packing line worker: Yes Final Inspector Movement Assembly: Aura Gonzales Tasks completed by assistant winemaker: Opening closing, Implanting device, Hemostasis: Electrocautery and Retracting Type of Anesthesia: General/Regional RN Documented Start/Stop Times: Operation Date: 10/04/24 07:30 Case Time Into Pre-Op 10/04/24 06:03 Anesthesia Start 10/04/24 07:34 Into Room 10/04/24 07:34 Out of Pre-Op 10/04/24 07:34 Procedure Start 10/04/24 07:59 Procedure Start Time: 07:59 Procedure Stop Time: 09:33 Select all DRAINS/GRAFTS/IMPLANTS that apply: Implanted device Implanted device details: Arthrex 4- hole titanium distal fibular locking plate with combination of cortical and locking screws, 50 mm x 4.0 mm partially-threaded cancellous screws x 2 Estimated Blood Loss: 25 cc Specimen collected: No Description of surgery: Patient was seen in preoperative holding area. They were identified by name, medical record number, date of . The operative extremity was marked with a surgical marker. We confirmed informed consent with the patient and all questions were answered to her satisfaction. In the preoperative holding area, a popliteal block and adductor canal was administered by the anesthesia staff. At time of the procedure, patient was brought to the operative suite and positioned supine on a standard operating table. All bony prominences were well-padded. General anesthesia was administered. After adequate anesthesia, a well-padded pneumatic tourniquet was applied to the right upper thigh. A large bump was placed in the patient's right hip. The right lower extremity was elevated on bath blankets for fluoroscopic imaging and access to the limb during surgery. We secured this with tape as well as the nonoperative extremity. We then performed a timeout with all parties in attendance and agree with the side, site, operation to be performed. No concerns were voiced and elected to proceed. 2 g Ancef was administered prior to incision by the anesthesia staff. We then prepped and draped the operative extremity using a ChloraPrep. While stabilizing the ankle, the operative extremity was exsanguinated with an Esmarch bandage. Tourniquet was inflated to 250 mmHg, which remained inflated for approximately 75 minutes. Incision was planned over the lateral malleolus and distal fibular shaft centered over the level of the fracture. Skin was sharply incised with a 15 blade scalpel. Superficial bleeders were cauterized with Bovie cautery. We then bluntly dissected to the level of the fascia. Fascia was opened with Bovie cautery. We examined closely for the superficial peroneal nerve which was not encountered throughout surgery. We bluntly dissected down to the level of the periosteum. Hohmann retractors were placed after fracture was encountered as well as the fibula. Periosteum was elevated at the level of the fracture approximately 2 to 3 mm. A [id number] reduction tenaculum was used to reapproximate the fracture site with excellent anatomic reduction. We then prepared for a lag screw for fixation. We first planned our lag screw perpendicular to the fracture site anterior superior to posterior inferior. We overdrilled the near cortex with a 3.0 mm drill bit. We then withdrew the drill bit and drilled the far cortex with a 2.0 mm drill bit. We then measured and placed an appropriately sized lag by technique 3.0 mm cortical screw with excellent compression across the fracture site. Reduction tenaculum was removed with excellent security at the fracture site. We then selected our plate on the back table. Fracture was slightly below the tibial plafond and I selected a distal fibular locking plate. Plate was provisionally held with K wires and then compressed the bone with cortical screws proximal and distal to the fracture site. The distal cluster was then filled with locking screws unit cortically. Shaft was filled with locking screws. Fracture was stable. I then turned my attention medially. Longitudinal incision was made sharply overlying the medial malleolus. Crossing veins were cauterized. Incarcerated periosteum was debrided. Fracture was debrided. Anatomic (more content not included)... Normal [facility] ,Urineon 10-04-2024 Beta HCG ( test) Ql (U) Negative Normal [facility] Comment on above: Result Comment: Very dilute urine specimens, as indicated by a low specific gravity, may not contain patient care representative levels of hCG. If is still suspected, a first morning urine specimen should be collected 48 hours later and tested. Performed By: #### L 400.7600 ####[facility] [address] [place], [address] Urine testOrdered By: Sacha Mckenna on 10-04-2024 HCG ( test) Ql (U) Negative [facility] Comment on above: Very dilute urine sp ecimens, as indicated by a low specificgravity, may not contain patient care representative levels of hCG. If is still suspected, a first morning urinespecimen should be collected 48 hours later and tested. [facility] Misc.on 09-30-2024 [facility] Misc. COMMENT Normal . [facility] Comment on above: Order Comment: DR.FR CADE ORDERED CRP,ESR,CBCD,CMP,LIPIDDR.JIMENEZ ORDERED CBCD,CMP,VITD,B12,IBC,AUGUST,THYROID PANELDR.ZARIA ORDERED CBCD,[id number] PANEL TIGER RMT Result Comment: Test Ordered: [id number] Thyroid [place] Profile TSH 1.050 uIU/mL Reference Range: 0.450-4.500 No apparent thyroid disorder. Additional testing not indicated. In rare instances, Secondary Hypothyroidism as well as Subclinical Hypothyroidism have been reported in some patients with normal TSH values. Performed at: - [facility] [id number] Loan Teller: Thomas Guallpa PhD, Phone: [phone] Performed By: #### L 500.4050, L3410.9998, L503.6030, L500.4100, L503.6550, L101.9900, L501.6710, L503.0106, L100.0100, L506.1001 ####[facility] [address] [place], [address] 12 Lead EKGon 09-29-2024 12 Lead EKG [facility] Cardiovascular Services [address] [place] [address] 12 Lead EKG 09/29/24 0752 MR#: [id number] Acct: [id number] Name: MERLE HOFF Rep #: [id number] : 1980 44 From: Yony Corral MD Attending Dr: Dr. Liban Stack DO Status: PRE WAC Ordering Dr: Liban Stack DO Date: 09/29/24 [place] [facility] Sex: F C Admitted: Test Reason : PRE OP Blood Pressure : */* mmHG Vent. Rate : 57 BPM Atrial Rate : 57 BPM P-R Int : 140 ms QRS Dur : 86 ms QT Int : 422 ms P-R-T Axes : 62 39 50 degrees QTcB Int : 410 ms Sinus bradycardia Otherwise normal ECG Confirmed by Yony Corral ([id number]), continuity editor LUCERO SCHUMACHER ([id number]) on 09/29/2024 10:15:21 AM Referred By: Liban Stack Confirmed By: Yony Corral 09/29/24 1015 Date Yony Corral MD CC: Dr. Maxime Villa MD; Dr. Liban Stack, DO Signed Normal [facility] Absolute lymphocyte countOrd ered By: Porfirio Huertas on 09-29-2024 Lymphocytes Auto (Unsp spec) [#/Vol] 1.35 10*3/uL 0.83-4.51 [facility] Absolute neutrophil countOrd ered By: Porfirioangel Huertas on 09-29-2024 Neutrophils (Bld) [#/Vol] 2.7 10*3/uL 2.0-7.7 [facility] Anion gap in Serum or Plasma Ordered By: Porfirioangel Huertas on 09-29-2024 Anion gap [Moles/Vol] 10 mmol/L 5-15 [facility] Automated lymphocyte count a s percentage of total leukocytesOrdered By: Porfirioangel Huertas on 09-29-2024 Lymphocytes/100 WBC Auto (Unsp spec) 28.8 % 19-41 [facility] BUN/creatinine ratioOrdered By: Porfirioangel Huertas on 09-29-2024 Urea nitrogen/Creatinine [Mass ratio] 13.7 mg/mg 10-20 [facility] Basophil percentageOrdered B y: Porfirioangel Huertas on 09-29-2024 Basophils/100 WBC (Bld) 1.1 % High 0-1 [facility] Bilirubin, totalOrdered By: Porfirioangel Huertas on 09-29-2024 Bilirubin [Mass/Vol] 0.27 mg/dL 0.00-1.30 [facility] CBC W/Diff, Automatedon 09-14 Absolute Lymph 1.35 X10 3/uL Normal 0.83-4.51 [facility] Comment on above: Order Comment: DR.FR CADE ORDERED CRP,ESR,CBCD,CMP,LIPIDDR.JIMENEZ ORDERED CBCD,CMP,VITD,B12,IBC,AUGUST,THYROID PANELDR.ZARIA ORDERED CBCD,BMP Performed By: #### L 500.4050, L3410.9998, L503.6030, L500.4100, L503.6550, L101.9900, L501.6710, L503.0106, L100.0100, L506.1001 ####[facility] [address] [place], [address] Absolute Neut 2.7 X10 3/uL Normal 2.0-7.7 [facility] Comment on above: Order Comment: DR.FR CADE ORDERED CRP,ESR,CBCD,CMP,LIPIDDR.JIMENEZ ORDERED CBCD,CMP,VITD,B12,IBC,AUGUST,THYROID PANELDR.SPITTLE ORDERED CBCD,BMP Performed By: #### L 500.4050, L3410.9998, L503.6030, L500.4100, L503.6550, L101.9900, L501.6710, L503.0106, L100.0100, L506.1001 ####[facility] [address] [place], [address] Basophils/100 WBC (Bld) 1.1 % High 0-1 [facility] Comment on above: Order Comment: DR.FR CADE ORDERED CRP,ESR,CBCD,CMP,LIPIDDR.JIMENEZ ORDERED CBCD,CMP,VITD,B12,IBC,AUGUST,THYROID PANELDR.SPITTLE ORDERED CBCD,BMP Performed By: #### L 500.4050, L3410.9998, L503.6030, L500.4100, L503.6550, L101.9900, L501.6710, L503.0106, L100.0100, L506.1001 ####[facility] [address] [place], [address] Eosinophils/100 WBC (Bld) 3.8 % Normal 0-5 [facility] Comment on above: Order Comment: DR.FR CADE ORDERED CRP,ESR,CBCD,CMP,LIPIDDR.JIMENEZ ORDERED CBCD,CMP,VITD,B12,IBC,AUGUST,THYROID PANELDR.SPITTLE ORDERED CBCD,BMP Performed By: #### L 500.4050, L3410.9998, L503.6030, L500.4100, L503.6550, L101.9900, L501.6710, L503.0106, L100.0100, L506.1001 ####[facility] [address] [place], [place], [phone](956) Erythrocyte distribution width (RBC) [Ratio] 14.2 % Normal 11.6-14.6 [facility] Comment on above: Order Comment: DR.FR CADE ORDERED CRP,ESR,CBCD,CMP,LIPIDDR.JIMENEZ ORDERED CBCD,CMP,VITD,B12,IBC,AUGUST,THYROID PANELDR.SPITTLE ORDERED CBCD,BMP Performed By: #### L 500.4050, L3410.9998, L503.6030, L500.4100, L503.6550, L101.9900, L501.6710, L503.0106, L100.0100, L506.1001 ####[facility] [address] [place], [address] Hematocrit (Bld) [Volume fraction] 34.3 % Low 37-47 [facility] Comment on above: Order Comment: DR.FR CADE ORDERED CRP,ESR,CBCD,CMP,LIPIDDR.JIMENEZ ORDERED CBCD,CMP,VITD,B12,IBC,AUGUST,THYROID PANELDR.SPITTLE ORDERED CBCD,BMP Performed By: #### L 500.4050, L3410.9998, L503.6030, L500.4100, L503.6550, L101.9900, L501.6710, L503.0106, L100.0100, L506.1001 ####[facility] [address] [place], [address] Hemoglobin (Bld) [Mass/Vol] 11.3 g/dL Low 12.0-15.0 [facility] Comment on above: Order Comment: DR.FR CADE ORDERED CRP,ESR,CBCD,CMP,LIPIDDR.JIMENEZ ORDERED CBCD,CMP,VITD,B12,IBC,AUGUST,THYROID PANELDR.SPITTLE ORDERED CBCD,BMP Performed By: #### L 500.4050, L3410.9998, L503.6030, L500.4100, L503.6550, L101.9900, L501.6710, L503.0106, L100.0100, L506.1001 ####[facility] [address] [place], [address] IG% 0.400 Normal 0.0-0.9 [facility] Comment on above: Order Comment: DR.FR CADE ORDERED CRP,ESR,CBCD,CMP,LIPIDDR.JIMENEZ ORDERED CBCD,CMP,VITD,B12,IBC,AUGUST,THYROID PANELDR.SPITTLE ORDERED CBCD,BMP Result Comment: IG% - Immature Granulocytes (promyelocytes, myelocytes and metamyelocytes) > 1% indicates that a LEFT SHIFT is Present. Performed By: #### L 500.4050, L3410.9998, L503.6030, L500.4100, L503.6550, L101.9900, L501.6710, L503.0106, L100.0100, L506.1001 ####[facility] [address] [place], [address] Lymphocytes/100 WBC (Bld) 28.8 % Normal 19-41 [facility] Comment on above: Order Comment: DR.FR CADE ORDERED CRP,ESR,CBCD,CMP,LIPIDDR.JIMENEZ ORDERED CBCD,CMP,VITD,B12,IBC,AUGUST,THYROID PANELDR.SPITTLE ORDERED CBCD,BMP Performed By: #### L 500.4050, L3410.9998, L503.6030, L500.4100, L503.6550, L101.9900, L501.6710, L503.0106, L100.0100, L506.1001 ####[facility] [address] [place], [address] MCH (RBC) [Entitic mass] 28.5 pg Normal 27.0-32.0 [facility] Comment on above: Order Comment: DR.FR CADE ORDERED CRP,ESR,CBCD,CMP,LIPIDDR.JIMENEZ ORDERED CBCD,CMP,VITD,B12,IBC,AUGUST,THYROID PANELDR.SPITTLE ORDERED CBCD,BMP Performed By: #### L 500.4050, L3410.9998, L503.6030, L500.4100, L503.6550, L101.9900, L501.6710, L503.0106, L100.0100, L506.1001 ####[facility] [address] [place], [address] MCHC (RBC) [Mass/Vol] 32.9 g/dL Normal 32-36 [facility] Comment on above: Order Comment: DR.FR CADE ORDERED CRP,ESR,CBCD,CMP,LIPIDDR.JIMENEZ ORDERED CBCD,CMP,VITD,B12,IBC,AUGUST,THYROID PANELDR.SPITTLE ORDERED CBCD,BMP Performed By: #### L 500.4050, L3410.9998, L503.6030, L500.4100, L503.6550, L101.9900, L501.6710, L503.0106, L100.0100, L506.1001 ####[facility] [address] [place], [address] MCV (RBC) [Entitic vol] 86.4 fL Normal 81-99 [facility] Comment on above: Order Comment: DR.FR CADE ORDERED CRP,ESR,CBCD,CMP,LIPIDDR.JIMENEZ ORDERED CBCD,CMP,VITD,B12,IBC,AUGUST,THYROID PANELDR.SPITTLE ORDERED CBCD,BMP Performed By: #### L 500.4050, L3410.9998, L503.6030, L500.4100, L503.6550, L101.9900, L501.6710, L503.0106, L100.0100, L506.1001 ####[facility] [address] [place], [address] Monocytes/100 WBC (Bld) 8.8 % Normal 0-10 [facility] Comment on above: Order Comment: DR.FR CADE ORDERED CRP,ESR,CBCD,CMP,LIPIDDR.JIMENEZ ORDERED CBCD,CMP,VITD,B12,IBC,AUGUST,THYROID PANELDR.SPITTLE ORDERED CBCD,BMP Performed By: #### L 500.4050, L3410.9998, L503.6030, L500.4100, L503.6550, L101.9900, L501.6710, L503.0106, L100.0100, L506.1001 ####[facility] [address] [place], [address] Neutrophils/100 WBC (Bld) 57.1 % Normal 47-70 [facility] Comment on above: Order Comment: DR.FR CADE ORDERED CRP,ESR,CBCD,CMP,LIPIDDR.JIMENEZ ORDERED CBCD,CMP,VITD,B12,IBC,AUGUST,THYROID PANELDR.SPITTLE ORDERED CBCD,BMP Performed By: #### L 500.4050, L3410.9998, L503.6030, L500.4100, L503.6550, L101.9900, L501.6710, L503.0106, L100.0100, L506.1001 ####[facility] [address] [place], [place], [phone](412) Nucleated RBC (Bld) [#/Vol] 0 10*3/uL Normal 0-5 [facility] Comment on above: Order Comment: DR.FR CADE ORDERED CRP,ESR,CBCD,CMP,LIPIDDR.JIMENEZ ORDERED CBCD,CMP,VITD,B12,IBC,AUGUST,THYROID PANELDR.SPITTLE ORDERED CBCD,BMP Performed By: #### L 500.4050, L3410.9998, L503.6030, L500.4100, L503.6550, L101.9900, L501.6710, L503.0106, L100.0100, L506.1001 ####[facility] [address] [place], [place], [phone](018) Platelet mean volume (Bld) [Entitic vol] 11.5 fL Normal 6.2-12.0 [facility] Comment on above: Order Comment: DR.FR CADE ORDERED CRP,ESR,CBCD,CMP,LIPIDDR.JIMENEZ ORDERED CBCD,CMP,VITD,B12,IBC,AUGUST,THYROID PANELDR.SPITTLE ORDERED CBCD,BMP Performed By: #### L 500.4050, L3410.9998, L503.6030, L500.4100, L503.6550, L101.9900, L501.6710, L503.0106, L100.0100, L506.1001 ####[facility] [address] [place], [address] Platelets (Bld) [#/Vol] 169 10*3/uL Normal 150-450 [facility] Comment on above: Order Comment: DR.FR CADE ORDERED CRP,ESR,CBCD,CMP,LIPIDDR.JIMENEZ ORDERED CBCD,CMP,VITD,B12,IBC,AUGUST,THYROID PANELDR.SPITTLE ORDERED CBCD,BMP Performed By: #### L 500.4050, L3410.9998, L503.6030, L500.4100, L503.6550, L101.9900, L501.6710, L503.0106, L100.0100, L506.1001 ####[facility] [address] [place], [address] RBC (Bld) [#/Vol] 3.97 10*6/uL Low 4.2-5.4 [facility] Comment on above: Order Comment: DR.FR CADE ORDERED CRP,ESR,CBCD,CMP,LIPIDDR.JIMENEZ ORDERED CBCD,CMP,VITD,B12,IBC,AUGUST,THYROID PANELDR.SPITTLE ORDERED CBCD,BMP Performed By: #### L 500.4050, L3410.9998, L503.6030, L500.4100, L503.6550, L101.9900, L501.6710, L503.0106, L100.0100, L506.1001 ####[facility] [address] [place], [place], [phone](822) RDW SD 44.6 fl High 35.1-43.9 [facility] Comment on above: Order Comment: DR.FR CADE ORDERED CRP,ESR,CBCD,CMP,LIPIDDR.JIMENEZ ORDERED CBCD,CMP,VITD,B12,IBC,AUGUST,THYROID PANELDR.SPITTLE ORDERED CBCD,BMP Performed By: #### L 500.4050, L3410.9998, L503.6030, L500.4100, L503.6550, L101.9900, L501.6710, L503.0106, L100.0100, L506.1001 ####[facility] [address] [place], [place], [phone](993) WBC (Bld) [#/Vol] 4.7 10*3/uL Normal 4.4-11.0 [facility] Comment on above: Order Comment: DR.FR CADE ORDERED CRP,ESR,CBCD,CMP,LIPIDDR.JIMENEZ ORDERED CBCD,CMP,VITD,B12,IBC,AUGUST,THYROID PANELDR.SPITTLE ORDERED CBCD,BMP Performed By: #### L 500.4050, L3410.9998, L503.6030, L500.4100, L503.6550, L101.9900, L501.6710, L503.0106, L100.0100, L506.1001 ####[facility] [address] [place], [place], [phone](751) CRPon 09-29-2024 C-REACTIVE PROT < 3.00 Normal 0.0-3.0 [facility] Comment on above: Order Comment: DR.FR CADE ORDERED CRP,ESR,CBCD,CMP,LIPIDDR.JIMENEZ ORDERED CBCD,CMP,VITD,B12,IBC,AUGUST,THYROID PANELDR.SPITTLE ORDERED CBCD,BMP Performed By: #### L 500.4050, L3410.9998, L503.6030, L500.4100, L503.6550, L101.9900, L501.6710, L503.0106, L100.0100, L506.1001 ####[facility] [address] [place], [place], [phone] CRP [Mass/Vol]Ordered By: Ra sam Huertas on 09-29-2024 C-Reactive Protein Extended Range < 3.00 mg/L 0.0-3.0 [facility] Calculated total iron bindin g capacityOrdered By: Porfirio Huertas on 09-29-2024 Total Iron Binding Capacity 299 ug/dL 250-450 [facility] Calculated very low density lipoprotein (VLDL) cholesterol measurementOrdered By: Porfirio Huertas on 09-29-2024 Calculated very low density lipoprotein (VLDL) cholesterol measurement 18 mg/dL 5-40 [facility] VLDL Cholesterol 18 mg/dL 5-40 [facility] Carbon dioxide, total [Moles /volume] in Central venous bloodOrdered By: Porfirio Huertas on 09-29-2024 CO2 [Moles/Vol] 21.5 mmol/L 21.0-32.0 [facility] Chloride assayOrdered By: Ra sam Huertas on 09-29-2024 Chloride [Moles/Vol] 106 mmol/L 98-108 [facility] Comprehensive Metabolic Prof ilon 09-29-2024 Albumin [Mass/Vol] 3.7 g/dL Normal 3.5-5.0 [facility] Comment on above: Order Comment: DR.FR CADE ORDERED CRP,ESR,CBCD,CMP,LIPIDDR.JIMENEZ ORDERED CBCD,CMP,VITD,B12,IBC,AUGUST,THYROID PANELDRGRISEL ORDERED CBCD,BMP Performed By: #### L 500.4050, L3410.9998, L503.6030, L500.4100, L503.6550, L101.9900, L501.6710, L503.0106, L100.0100, L506.1001 ####[facility] [address] [place], [place], [phone] Albumin/Globulin [Mass ratio] 1.4 {ratio} Normal 0.9-2.4 [facility] Comment on above: Order Comment: DR.FR CADE ORDERED CRP,ESR,CBCD,CMP,LIPIDDR.JIMENEZ ORDERED CBCD,CMP,VITD,B12,IBC,AUGUST,THYROID PANELDR.SPITTLE ORDERED CBCD,BMP Performed By: #### L 500.4050, L3410.9998, L503.6030, L500.4100, L503.6550, L101.9900, L501.6710, L503.0106, L100.0100, L506.1001 ####[facility] [address] [place], [place], [phone] ALK PHOS 39 U/L Normal 35-104 [facility] Comment on above: Order Comment: DR.FR CADE ORDERED CRP,ESR,CBCD,CMP,LIPIDDR.JIMENEZ ORDERED CBCD,CMP,VITD,B12,IBC,AUGUST,THYROID PANELDR.SPITTLE ORDERED CBCD,BMP Performed By: #### L 500.4050, L3410.9998, L503.6030, L500.4100, L503.6550, L101.9900, L501.6710, L503.0106, L100.0100, L506.1001 ####[facility] [address] [facility] [place], [place], [phone] ALT [Catalytic activity/Vol] 7 U/L Normal <=34 [facility] Comment on above: Order Comment: DR.FR CADE ORDERED CRP,ESR,CBCD,CMP,LIPIDDR.JIMENEZ ORDERED CBCD,CMP,VITD,B12,IBC,AUGUST,THYROID PANELDR.SPITTLE ORDERED CBCD,BMP Performed By: #### L 500.4050, L3410.9998, L503.6030, L500.4100, L503.6550, L101.9900, L501.6710, L503.0106, L100.0100, L506.1001 ####[facility] [address] [place], [place], [phone] AST [Catalytic activity/Vol] 15 U/L Normal <=31 [facility] Comment on above: Order Comment: DR.FR CADE ORDERED CRP,ESR,CBCD,CMP,LIPIDDR.JIMENEZ ORDERED CBCD,CMP,VITD,B12,IBC,AUGUST,THYROID PANELDR.SPITTLE ORDERED CBCD,BMP Performed By: #### L 500.4050, L3410.9998, L503.6030, L500.4100, L503.6550, L101.9900, L501.6710, L503.0106, L100.0100, L506.1001 ####[facility] [address] [place], [place], [phone] Bilirubin [Mass/Vol] 0.27 mg/dL Normal 0.00-1.30 [facility] Comment on above: Order Comment: DR.FR CADE ORDERED CRP,ESR,CBCD,CMP,LIPIDDR.JIMENEZ ORDERED CBCD,CMP,VITD,B12,IBC,AUGUST,THYROID PANELDR.SPITTLE ORDERED CBCD,BMP Performed By: #### L 500.4050, L3410.9998, L503.6030, L500.4100, L503.6550, L101.9900, L501.6710, L503.0106, L100.0100, L506.1001 ####[facility] [address] [place], [place], [phone](733) BUN/CRE 13.7 RATIO Normal 10-20 [facility] Comment on above: Order Comment: DR.FR CADE ORDERED CRP,ESR,CBCD,CMP,LIPIDDR.JIMENEZ ORDERED CBCD,CMP,VITD,B12,IBC,AUGUST,THYROID PANELDR.SPITTLE ORDERED CBCD,BMP Performed By: #### L 500.4050, L3410.9998, L503.6030, L500.4100, L503.6550, L101.9900, L501.6710, L503.0106, L100.0100, L506.1001 ####[facility] [address] [place], [address] Calcium [Mass/Vol] 8.7 mg/dL Normal 7.6-11.0 [facility] Comment on above: Order Comment: DR.FR CADE ORDERED CRP,ESR,CBCD,CMP,LIPIDDR.JIMENEZ ORDERED CBCD,CMP,VITD,B12,IBC,AUGUST,THYROID PANELDR.SPITTLE ORDERED CBCD,BMP Performed By: #### L 500.4050, L3410.9998, L503.6030, L500.4100, L503.6550, L101.9900, L501.6710, L503.0106, L100.0100, L506.1001 ####[facility] [address] [place], [address] Chloride [Moles/Vol] 106 mmol/L Normal 98-108 [facility] Comment on above: Order Comment: DR.FR CADE ORDERED CRP,ESR,CBCD,CMP,LIPIDDR.JIMENEZ ORDERED CBCD,CMP,VITD,B12,IBC,AUGUST,THYROID PANELDR.SPITTLE ORDERED CBCD,BMP Performed By: #### L 500.4050, L3410.9998, L503.6030, L500.4100, L503.6550, L101.9900, L501.6710, L503.0106, L100.0100, L506.1001 ####[facility] [address] [place], [address] CO2 [Moles/Vol] 21.5 mmol/L Normal 21.0-32.0 [facility] Comment on above: Order Comment: DR.FR CADE ORDERED CRP,ESR,CBCD,CMP,LIPIDDR.JIMENEZ ORDERED CBCD,CMP,VITD,B12,IBC,AUGUST,THYROID PANELDR.SPITTLE ORDERED CBCD,BMP Performed By: #### L 500.4050, L3410.9998, L503.6030, L500.4100, L503.6550, L101.9900, L501.6710, L503.0106, L100.0100, L506.1001 ####[facility] [address] [place], [place], [phone] Creatinine [Mass/Vol] 0.89 mg/dL Normal 0.70-1.20 [facility] Comment on above: Order Comment: DR.FR CADE ORDERED CRP,ESR,CBCD,CMP,LIPIDDR.JIMENEZ ORDERED CBCD,CMP,VITD,B12,IBC,AUGUST,THYROID PANELDR.SPITTDAVID ORDERED CBCD,BMP Performed By: #### L 500.4050, L3410.9998, L503.6030, L500.4100, L503.6550, L101.9900, L501.6710, L503.0106, L100.0100, L506.1001 ####[facility] [address] [place], [place], [phone](441) GAP 10 Normal 5-15 [facility] Comment on above: Order Comment: DR.FR CADE ORDERED CRP,ESR,CBCD,CMP,LIPIDDR.JIMENEZ ORDERED CBCD,CMP,VITD,B12,IBC,AUGUST,THYROID PANELDR.SPITTDAVID ORDERED CBCD,BMP Performed By: #### L 500.4050, L3410.9998, L503.6030, L500.4100, L503.6550, L101.9900, L501.6710, L503.0106, L100.0100, L506.1001 ####[facility] [address] [place], [place], [phone] GFR/1.73 sq M.predicted among non-blacks MDRD (S/P/Bld) [Vol rate/Area] 82 mL/min/{1.73_m2} Normal >60 [facility] Comment on above: Order Comment: DR.FR CADE ORDERED CRP,ESR,CBCD,CMP,LIPIDDR.JIMENEZ ORDERED CBCD,CMP,VITD,B12,IBC,AUGUST,THYROID PANELDR.SPITTLE ORDERED CBCD,BMP Result Comment: mL/m in/1.73m2 CKD-EPI Creatinine Equation (2020) Performed By: #### L 500.4050, L3410.9998, L503.6030, L500.4100, L503.6550, L101.9900, L501.6710, L503.0106, L100.0100, L506.1001 ####[facility] [address] [place], [address] Globulin (S) [Mass/Vol] 2.5 g/dL Normal 2.2-4.2 [facility] Comment on above: Order Comment: DR.FR CADE ORDERED CRP,ESR,CBCD,CMP,LIPIDDR.JIMENEZ ORDERED CBCD,CMP,VITD,B12,IBC,AUGUST,THYROID PANELDR.SPITTLE ORDERED CBCD,BMP Performed By: #### L 500.4050, L3410.9998, L503.6030, L500.4100, L503.6550, L101.9900, L501.6710, L503.0106, L100.0100, L506.1001 ####[facility] [address] [place], [address] Glucose [Mass/Vol] 87 mg/dL Normal 70-99 [facility] Comment on above: Order Comment: DR.FR CADE ORDERED CRP,ESR,CBCD,CMP,LIPIDDR.JIMENEZ ORDERED CBCD,CMP,VITD,B12,IBC,AUGUST,THYROID PANELDR.SPITTLE ORDERED CBCD,BMP Performed By: #### L 500.4050, L3410.9998, L503.6030, L500.4100, L503.6550, L101.9900, L501.6710, L503.0106, L100.0100, L506.1001 ####[facility] [address] [place], [address] Potassium [Moles/Vol] 3.8 mmol/L Normal 3.3-5.1 [facility] Comment on above: Order Comment: DR.FR CADE ORDERED CRP,ESR,CBCD,CMP,LIPIDDR.JIMENEZ ORDERED CBCD,CMP,VITD,B12,IBC,AUGUST,THYROID PANELDR.SPITTLE ORDERED CBCD,BMP Performed By: #### L 500.4050, L3410.9998, L503.6030, L500.4100, L503.6550, L101.9900, L501.6710, L503.0106, L100.0100, L506.1001 ####[facility] [address] [place], [place], [phone] Sodium [Moles/Vol] 137 mmol/L Normal 133-145 [facility] Comment on above: Order Comment: DR.FR CADE ORDERED CRP,ESR,CBCD,CMP,LIPIDDR.JIMENEZ ORDERED CBCD,CMP,VITD,B12,IBC,AUGUST,THYROID PANELDR.SPITTLE ORDERED CBCD,BMP Performed By: #### L 500.4050, L3410.9998, L503.6030, L500.4100, L503.6550, L101.9900, L501.6710, L503.0106, L100.0100, L506.1001 ####[facility] [address] [place], [place], [phone] T PROT 6.2 g/dL Normal 5.9-8.4 [facility] Comment on above: Order Comment: DR.FR CADE ORDERED CRP,ESR,CBCD,CMP,LIPIDDR.JIMENEZ ORDERED CBCD,CMP,VITD,B12,IBC,AUGUST,THYROID PANELDR.SPITTLE ORDERED CBCD,BMP Performed By: #### L 500.4050, L3410.9998, L503.6030, L500.4100, L503.6550, L101.9900, L501.6710, L503.0106, L100.0100, L506.1001 ####[facility] [address] [place], [address] Urea nitrogen [Mass/Vol] 12 mg/dL Normal 4-19 [facility] Comment on above: Order Comment: DR.FR CADE ORDERED CRP,ESR,CBCD,CMP,LIPIDDR.JIMENEZ ORDERED CBCD,CMP,VITD,B12,IBC,AUGUST,THYROID PANELDR.ZARIA ORDERED CBCD,BMP Performed By: #### L 500.4050, L3410.9998, L503.6030, L500.4100, L503.6550, L101.9900, L501.6710, L503.0106, L100.0100, L506.1001 ####[facility] [address] [place], [address] Electrocardiogram reportOrde red By: Yony Corral on 09-29-2024 EKG study [facility] [address] [place] [address] 12 Lead EKG 09/29/24 0752 MR#: [id number] Acct: [id number] Name: MERLE HOFF Rep #:[id number] : 1980 44 From: Yony stallworth MD Attending Dr: Dr. Liban Stack DO Status: PRE SDC Ordering Dr: Liban Stack DO Date: 09/29/24 [place] [facility] [place]: F C Admitted: Test Reason : PRE OP Blood Pressure : */* mmHG Vent. Rate : 57 BPM Atrial Rate : 57 BPM P-R Int : 140 ms QRS Dur : 86 ms QT Int : 422 ms P-R-T Axes : 62 39 50 degrees QTcB Int : 410 ms Sinus bradycardia Otherwise normal ECG Confirmed by Yony Corral ([id number]), continuity editor LUCERO SCHUMACHER ([id number]) on 0:15:21 AM Referred By: Liban Stack Confirmed By: Yony Corral 09/29/24 1015 Date _ Yony Corral MD CC: Dr. Maxime Villa MD; Dr. Liban Stack, DO ~ Signed [facility] Work Phone: Eosinophil percentageOrdered By: Porfirio Friend on 09-29-2024 Eosinophils/100 WBC (Bld) 3.8 % 0-5 [facility] Erythrocyte Sed Rateon 09-29 SED RATE 8 mm/hr Normal 0-30 [facility] Comment on above: Order Comment: DR.FR CADE ORDERED CRP,ESR,CBCD,CMP,LIPID ORDERED CBCD,CMP,VITD,B12,IBC,AUGUST,THYROID PANEL ORDERED CBCD,BMP Performed By: #### L 500.4050, L3410.9998, L503.6030, L500.4100, L503.6550, L101.9900, L501.6710, L503.0106, L100.0100, L506.1001 #### [facility] [address] [place], [address] Erythrocyte distribution wid th (RBC) [Ratio]Ordered By: Porfirio Friend on 09-29-2024 Erythrocyte distribution width (RBC) [Entitic vol] 44.6 fL High 35.1-43.9 [facility] Erythrocyte distribution wid th ratioOrdered By: Porfirio Friend on 09-29-2024 Erythrocyte distribution width (RBC) [Ratio] 14.2 % 11.6-14.6 [facility] Erythrocyte distribution wid th standard deviationOrdered By: Porfirio Friend on 09-29-2024 Erythrocyte distribution width (RBC) [Ratio] 44.6 fl High 35.1-43.9 [facility] Erythrocyte sedimentation ra teOrdered By: Porfirio Friend on 09-29-2024 ESR (Bld) [Velocity] 8 mm/h 0-30 [facility] Extremity Lower without Cont raon 09-29-2024 Extremity Lower without Contra [facility] Imaging Services [address] [place] [address] Extremity Lower without Contra MR#: [id number] Acct: [id number] Name: MERLE HOFF Rep #: [id number] : 1980 F 44 From: Dontae chaparro MD PCP: Dr. Maxime Villa MD Status: REG CLI Study: Extremity Lower without Contra Date of Exam: 0 09/29/24 Exam# [id number] Ordering Dr: Aura Gonzales PROCEDURE: EXTREMITY LOWER WITHOUT CONTRA 09/29/2024 REASON FOR EXAM: PRE OP/RLL FX TECHNIQUE: Axial CT images of the right ankle obtained without intravenous contrast. Coronal and Sagittal reconstruction series were provided. One or more dose reduction techniques were used (e.g., Automated exposure control, adjustment of the mA and/or kV according to patient size, use of iterative reconstruction technique CONTRAST: None RADIATION DOSE SUMMARY: CTDlvol: 15.35 mGy DLP: 384.46 mGycm COMPARISON: None FINDINGS: Bones: Nondisplaced oblique fracture of the lateral malleolus. Nondisplaced avulsion fracture of the anterior aspect of the the fracture line extends into the articular surface. No significant displacement is seen. Medial malleolus. Joints: The ankle mortise is asymmetrical. Soft Tissues: Swelling. CT/Extremity Lower without Contra IMPRESSION: Nondisplaced oblique fracture of the lateral malleolus as well as an avulsion fracture of the medial malleolus along its anterior aspect. This abuts the articular surface. Asymmetry of the ankle mortise. Soft tissue swelling. Reading Location: [facility] CC: Dr. Maxime Villa MD; LUCIANO [employer]: Signed Normal [facility] Ferritinon 09-29-2024 Ferritin [Mass/Vol] 15 ng/mL Low 22-378 [facility] [place] Comment on above: Order Comment: DR.FR CADE ORDERED CRP,ESR,CBCD,CMP,LIPIDDR.JIMENEZ ORDERED CBCD,CMP,VITD,B12,IBC,AUGUST,THYROID PANELDR.ZARIA ORDERED CBCD,BMP Performed By: #### L 500.4050, L3410.9998, L503.6030, L500.4100, L503.6550, L101.9900, L501.6710, L503.0106, L100.0100, L506.1001 ####[facility] [address] [place], [address] GFR/1.73 sq M.predicted alessandra g non-blacks MDRD (S/P/Bld) [Vol rate/Area]Ordered By: Porfirio Huertas on 09-29-2024 Estimated GFR (MDRD) Non-Af Amer 82 >60 [facility] Comment on above: mL/min/1.73m2 CKD-EP I Creatinine Equation (2020) Glomerular filtration rate ( GFR) estimation/1.73 sq m using serum, plasma, or whole bOrdered By: Porfirio Huertas on 09-29-2024 GFR/1.73 sq M.predicted among non-blacks MDRD (S/P/Bld) [Vol rate/Area] 82 mL/min/{1.73_m2} >60 [facility] Comment on above: mL/min/1.73m2 CKD-EP I Creatinine Equation (2020) Hematocrit Auto (Bld) [Volum e fraction]Ordered By: Porfirio Huertas on 09-29-2024 Hematocrit (Bld) [Volume fraction] 34.3 % Low 37-47 [facility] Hemoglobin measurementOrdere d By: Porfirio Huertas on 09-29-2024 Hemoglobin (Bld) [Mass/Vol] 11.3 g/dL Low 12.0-15.0 [facility] Immature granulocytes/100 WB C Auto (Bld)Ordered By: Porfirio Huertas on 09-29-2024 Immature granulocytes/100 WBC (Bld) 0.400 % 0.0-0.9 [facility] Comment on above: IG% - Immature Granu locytes (promyelocytes, myelocytes and metamyelocytes) > 1% indicates that a LEFT SHIFT is Present. Iron (Unsp spec) [Mass/Mass] Ordered By: Porfirio Huertas on 09-29-2024 Iron [Mass/Vol] 67 ug/dL 50-170 [facility] Iron measurement (mass/mass) Ordered By: Porfirio Huertas on 09-29-2024 Iron (Unsp spec) [Mass/Mass] 67 ug/dL 50-170 [facility] Iron saturation [Mass fracti on]Ordered By: Porfirio Huertas on 09-29-2024 Iron Saturation 22.4 % 13-59 [facility] Comment on above: Previous reported re sult: 22.0 %Edited by: ALYX on 09/29/24:1108 AMENDED REPORT 09/29/24 1108 IRON SATURATION previously reported as: 22.0 % Iron+Iron Binding Capacityon 09-29-2024 Iron [Mass/Vol] 67 ug/dL Normal 50-170 [facility] Comment on above: Order Comment: DR.FR CADE ORDERED CRP,ESR,CBCD,CMP,LIPIDDR.JIMENEZ ORDERED CBCD,CMP,VITD,B12,IBC,AUGUST,THYROID PANELDR.SPITTLE ORDERED CBCD,BMP Performed By: #### L 500.4050, L3410.9998, L503.6030, L500.4100, L503.6550, L101.9900, L501.6710, L503.0106, L100.0100, L506.1001 ####[facility] [address] [place], [address] UIBC 232 ug/dL Normal 228-428 [facility] Comment on above: Order Comment: DR.FR CADE ORDERED CRP,ESR,CBCD,CMP,LIPIDDR.JIMENEZ ORDERED CBCD,CMP,VITD,B12,IBC,AUGUST,THYROID PANELDR.SPITTLE ORDERED CBCD,BMP Performed By: #### L 500.4050, L3410.9998, L503.6030, L500.4100, L503.6550, L101.9900, L501.6710, L503.0106, L100.0100, L506.1001 ####[facility] [address] [place], [address] LDL calc ser/plasOrdered By: Porfirio Huertas on 09-29-2024 Cholesterol in LDL [Mass/Vol] 118 mg/dL [facility] Comment on above: Qfxufbeavs=568-562 m g/dL & Higher Ksec=033 mg/dL or greater LDL Cholesterol, Calculated 118 mg/dL [facility] Comment on above: Ircwuhzdrn=494-686 m g/dL & Higher Lfij=438 mg/dL or greater Laboratory - Chemistry and C hemistry - challengeOrdered By: Porfirio Friend on 09-29-2024 AST [Catalytic activity/Vol] 15 U/L <32 [facility] Lipid Profileon 09-29-2024 CHOL:HDL 3.40 Normal [facility] Comment on above: Order Comment: DR.FR CADE ORDERED CRP,ESR,CBCD,CMP,LIPIDDR.JIMENEZ ORDERED CBCD,CMP,VITD,B12,IBC,AUGUST,THYROID PANELDR.ZARIA ORDERED CBCD,BMP Performed By: #### L 500.4050, L3410.9998, L503.6030, L500.4100, L503.6550, L101.9900, L501.6710, L503.0106, L100.0100, L506.1001 ####[facility] [address] [place], [address] Cholesterol [Mass/Vol] 192 mg/dL Normal <=200 [facility] Comment on above: Order Comment: DR.FR CADE ORDERED CRP,ESR,CBCD,CMP,LIPIDDR.JIMENEZ ORDERED CBCD,CMP,VITD,B12,IBC,AUGUST,THYROID PANELDR.ZARIA ORDERED CBCD,BMP Result Comment: Chol esterol level, Desirable <200 mg/dL Borderline high cholesterol 200-239 mg/dL High cholesterol >=240 mg/dL Recommendations of the NCEP Adult Treatment Panel for the following risk-cutoff thresholds for the [place] population. Performed By: #### L 500.4050, L3410.9998, L503.6030, L500.4100, L503.6550, L101.9900, L501.6710, L503.0106, L100.0100, L506.1001 ####[facility] [address] [place], [address] Cholesterol in HDL [Mass/Vol] 56 mg/dL Normal [facility] Comment on above: Order Comment: DR.FR CADE ORDERED CRP,ESR,CBCD,CMP,LIPIDDR.JIMENEZ ORDERED CBCD,CMP,VITD,B12,IBC,AUGUST,THYROID PANELDR.SPITTLE ORDERED CBCD,BMP Result Comment: Anabela onal Cholesterol Education Program (NCEP) guidelines: <40 mg/dL: Low HDL-cholesterol (major risk factor for CHD) >= 60 mg/dL: High HDL-cholesterol (negative risk factor for CHD) HDL-cholesterol is affected by a number of factors, e.g. smoking, exercise, hormones, sex and age. Performed By: #### L 500.4050, L3410.9998, L503.6030, L500.4100, L503.6550, L101.9900, L501.6710, L503.0106, L100.0100, L506.1001 ####[facility] [address] [facility] [place], [place], [id number] Cholesterol in LDL [Mass/Vol] 118 mg/dL Normal [facility] Comment on above: Order Comment: DR.FR CADE ORDERED CRP,ESR,CBCD,CMP,LIPIDDR.JIMENEZ ORDERED CBCD,CMP,VITD,B12,IBC,AUGUST,THYROID PANELDR.SPITTLE ORDERED CBCD,BMP Result Comment: Bord mdidmv=428-465 mg/dL Higher Aqol=494 mg/dL or greater Performed By: #### L 500.4050, L3410.9998, L503.6030, L500.4100, L503.6550, L101.9900, L501.6710, L503.0106, L100.0100, L506.1001 ####[facility] [address] [place], [address] Cholesterol in VLDL [Mass/Vol] 18 mg/dL Normal 5-40 [facility] Comment on above: Order Comment: DR.FR CADE ORDERED CRP,ESR,CBCD,CMP,LIPIDDR.JIMENEZ ORDERED CBCD,CMP,VITD,B12,IBC,AUGUST,THYROID PANELDR.SPITTLE ORDERED CBCD,BMP Performed By: #### L 500.4050, L3410.9998, L503.6030, L500.4100, L503.6550, L101.9900, L501.6710, L503.0106, L100.0100, L506.1001 ####[facility] [address] [facility] [place], [place], [id number] Triglyceride [Mass/Vol] 88 mg/dL Normal [facility] Comment on above: Order Comment: DR.FR CADE ORDERED CRP,ESR,CBCD,CMP,LIPIDDR.JIMENEZ ORDERED CBCD,CMP,VITD,B12,IBC,AUGUST,THYROID PANELDR.ZARIA ORDERED CBCD,BMP Result Comment: The drugs N-Acetylcysteine and Metamizole may falsely depress this assay. Normal range: <150 mg/dL Borderline High: 150-199 mg/dL High: 200-499 mg/dL Very High: >500 mg/dL Performed By: #### L 500.4050, L3410.9998, L503.6030, L500.4100, L503.6550, L101.9900, L501.6710, L503.0106, L100.0100, L506.1001 ####[facility] [address] [place], [place], [id number] Lymphocytes Auto (Unsp spec) [#/Vol]Ordered By: Porfirio Huertas on 09-29-2024 Lymphocytes (Bld) [#/Vol] 1.35 10*3/uL 0.83-4.5 1 [facility] Lymphocytes/100 WBC Auto (Un sp spec)Ordered By: Porfirio Huertas on 09-29-2024 Lymphocytes/100 WBC (Bld) 28.8 % 19-41 [facility] MCV (mean corpuscular volume ) determinationOrdered By: Porfirio Huertas on 09-29-2024 MCV (RBC) [Entitic vol] 86.4 fL 81-99 [facility] Mean corpuscular hemoglobin (MCH) determinationOrdered By: Porfirio Huertas on 09-29-2024 MCH (RBC) [Entitic mass] 28.5 pg 27.0-32.0 [facility] Mean corpuscular hemoglobin concentration (MCHC) determinationOrdered By: Porfirio Huertas on 09-29-2024 MCHC (RBC) [Mass/Vol] 32.9 g/dL 32-36 [facility] Mean platelet volume determi nationOrdered By: Porfirio Huertas on 09-29-2024 Platelet mean volume (Bld) [Entitic vol] 11.5 fL 6.2-12.0 [facility] Monocyte percentageOrdered B y: Porfirio Huertas on 09-29-2024 Monocytes/100 WBC (Bld) 8.8 % 0-10 [facility] Neutrophil percentageOrdered By: Porfirio Huertas on 09-29-2024 Neutrophils/100 WBC (Bld) 57.1 % 47-70 [facility] No Panel InformationOrdered By: Porfirio Huertas on 09-29-2024 Miscellaneous Test COMMENT . [facility] Comment on above: Test Ordered: [id number] Thyroid [place] ProfileTSH 1.050 uIU/mL Reference Range: 0.450-4.500No apparent thyroid disorder. Additional testing notindicated. In rare instances, Secondary Hypothyroidism aswell as Subclinical Hypothyroidism have been reported insome patients with normal TSH values.Performed at: - [facility] [id number] Director: Thomas Guallpa PhD, Phone: [phone] Unsaturated Iron Binding Capacity 232 ug/dL 228-428 [facility] Nucleated red blood cell per centageOrdered By: Porfirio Huertas on 09-29-2024 Nucleated RBC/100 WBC (Bld) [Ratio] 0 % 0-5 [facility] Platelet countOrdered By: Ra sam Huertas on 09-29-2024 Platelets (Bld) [#/Vol] 169 10*3/uL 150-450 [facility] Potassium (Unsp spec) [Mass/ Vol]Ordered By: Porfirio Huertas on 09-29-2024 Potassium [Moles/Vol] 3.8 mmol/L 3.3-5.1 [facility] Potassium measurement (mass/ volume)Ordered By: Porfirio Huertas on 09-29-2024 Potassium (Unsp spec) [Mass/Vol] 3.8 mmol/L 3.3-5.1 [facility] RBC Auto (Bld) [#/Vol]Ordere d By: Porfirio Huertas on 09-29-2024 RBC (Bld) [#/Vol] 3.97 10*6/uL Low 4.2-5.4 [facility] Screening total cholesterol/ high density lipoprotein (HDL) cholesterol ratioOrdered By: Porfirio Huertas on 09-29-2024 Cholesterol.total/Cholest hossein in HDL [Mass ratio] 3.40 {ratio} [facility] Serum creatinine measurement (mass/volume)Ordered By: Porfirio Huertas on 09-29-2024 Creatinine [Mass/Vol] 0.89 mg/dL 0.70-1.20 [facility] Serum globulin measurementOr dered By: Porfirio Huertas on 09-29-2024 Globulin (S) [Mass/Vol] 2.5 g/dL 2.2-4.2 [facility] Serum glucose measurement (m ass/volume)Ordered By: Porfirio Huertas on 09-29-2024 Glucose [Mass/Vol] 87 mg/dL 70-99 [facility] Serum or plasma C reactive p rotein measurement (mass/volume)Ordered By: Porfirio Huertas on 09-29-2024 CRP [Mass/Vol] mg/L 0.0-3.0 [facility] Serum or plasma alanine keith otransferase (ALT) measurementOrdered By: Porfirio Huertas on 09-29-2024 ALT [Catalytic activity/Vol] 7 U/L <35 [facility] Serum or plasma albumin luis e urement (mass/volume)Ordered By: Porfirio Huertas on 09-29-2024 Albumin [Mass/Vol] 3.7 g/dL 3.5-5.0 [facility] Serum or plasma albumin/glob ulin mass ratioOrdered By: Porfirio Huertas on 09-29-2024 Albumin/Globulin [Mass ratio] 1.4 {ratio} 0.9-2.4 [facility] Serum or plasma alkaline marilee sphatase measurementOrdered By: Porfirio Huertas on 09-29-2024 ALP [Catalytic activity/Vol] 39 U/L 35-104 [facility] Serum or plasma calcium luis e urement (mass/volume)Ordered By: Porfirio Huertas on 09-29-2024 Calcium [Mass/Vol] 8.7 mg/dL 7.6-11.0 [facility] Serum or plasma cholesterol in HDL measurement (mass/volume)Ordered By: Porfirio Huertas on 09-29-2024 Cholesterol in HDL [Mass/Vol] 56 mg/dL >40 [facility] Comment on above: National Cholesterol Education Program (NCEP) guidelines:<40 mg/dL: Low HDL-cholesterol (major risk factor for CHD)>= 60 mg/dL: High HDL-cholesterol (negative risk factor for CHD)HDL-cholesterol is affected by a number of factors, e.g. smoking, exercise, hormones, sex and age. Serum or plasma cholesterol measurement (mass/volume)Ordered By: Porfirio Huertas on 09-29-2024 Cholesterol [Mass/Vol] 192 mg/dL <201 [facility] Comment on above: Cholesterol level, D esirable <200 mg/dLBorderline high cholesterol 200-239 mg/dLHigh cholesterol >=240 mg/dLRecommendations of the NCEP Adult Treatment Panel for the following risk-cutoff thresholds for the [place] population. Serum or plasma ferritin jennifer surement (mass/volume)Ordered By: Porfirio Huertas on 09-29-2024 Ferritin [Mass/Vol] 15 ng/mL Low 22-378 [facility] Serum or plasma iron saturat ion measurement (mass fraction)Ordered By: Porfirio Huertas on 09-29-2024 Iron saturation [Mass fraction] 22.4 % 13-59 [facility] Comment on above: Previous reported re sult: 22.0 %Edited by: ALYX on 09/29/24:1108 AMENDED REPORT 09/29/24 1108 IRON SATURATION previously reported as: 22.0 % Serum or plasma urea nitroge n measurement (mass/volume)Ordered By: Porfirio Huertas on 09-29-2024 Urea nitrogen [Mass/Vol] 12 mg/dL 4-19 [facility] Sodium levelOrdered By: Daniel Feldman on 09-29-2024 Sodium [Moles/Vol] 137 mmol/L 133-145 [facility] Total proteinOrdered By: Kirk sanchez Friend on 09-29-2024 Protein [Mass/Vol] 6.2 g/dL 5.9-8.4 [facility] Triglycerides measurementOrd ered By: Porfirio Huertas on 09-29-2024 Triglyceride [Mass/Vol] 88 mg/dL <199 [facility] Comment on above: The drugs N-Acetylcy steine and Metamizole may falsely depress this assay. Normal range: <150 mg/dLBorderline High: 150-199 mg/dLHigh: 200-499 mg/dLVery High: >500 mg/dL Vitamin B12on 09-29-2024 Cobalamin (Vitamin B12) [Mass/Vol] 526 pg/mL Normal 180-914 [facility] Comment on above: Order Comment: DR.FR CADE ORDERED CRP,ESR,CBCD,CMP,LIPIDDR.JIMENEZ ORDERED CBCD,CMP,VITD,B12,IBC,AUGUST,THYROID PANELDR.ZARIA ORDERED CBCD,BMP Performed By: #### L 500.4050, L3410.9998, L503.6030, L500.4100, L503.6550, L101.9900, L501.6710, L503.0106, L100.0100, L506.1001 ####[facility] [address] [place], [address] Vitamin B12 ser/plasOrdered By: Porfirio Friend on 09-29-2024 Cobalamin (Vitamin B12) [Mass/Vol] 526 pg/mL 180-914 [facility] Vitamin D, 25-hydroxyOrdered By: Porfirio Huertas on 09-29-2024 Vitamin D 25-Hydroxy 28.4 ng/mL Low 30-100 [facility] Comment on above: Vitamin D StatusDefi ciency: <20 ng/mL (50nmol/L)Insufficiency: 20-30 ng/mL (50-75 nmol/L)Sufficiency: 30-100 ng/mL (75-250 nmol/L)Toxicity: >100 ng/mL (>250 nmol/L) Vitamin D,25 Hydroxyon 09-29 Vitamin D 25-OH 28.4 ng/mL Low 30-100 [facility] Comment on above: Order Comment: DR.FR CADE ORDERED CRP,ESR,CBCD,CMP,LIPIDDR.JIMENEZ ORDERED CBCD,CMP,VITD,B12,IBC,AUGUST,THYROID PANELDR.ZARIA ORDERED CBCD,BMP Result Comment: Tuyet min D Status Deficiency: <20 ng/mL (50nmol/L) Insufficiency: 20-30 ng/mL (50-75 nmol/L) Sufficiency: 30-100 ng/mL (75-250 nmol/L) Toxicity: >100 ng/mL (>250 nmol/L) Performed By: #### L 500.4050, L3410.9998, L503.6030, L500.4100, L503.6550, L101.9900, L501.6710, L503.0106, L100.0100, L506.1001 ####[facility] [address] [facility] [place], [address] White blood cell (WBC) count Ordered By: Porfirio Huertas on 09-29-2024 WBC (Bld) [#/Vol] 4.7 10*3/uL 4.4-11.0 [facility] Ankle min 3 Viewson 09-27-19 25 Ankle min 3 Views [facility] Imaging Services [address] [place] [address] Ankle min 3 Views MR#: [id number] Acct: [id number] Name: MERLE HOFF Rep #: [id number] : 1980 F 44 From: Salma Jones nd, MD PCP: Dr. Maxime Villa MD Status: REG ER Study: Ankle min 3 Views Date of Exam: 09/26/24 Exam# [id number] Ordering Dr: Malick Green DO PROCEDURE: ANKLE MIN 3 VIEWS 09/26/2024 REASON FOR EXAM: FRACTURE DISLOCATION TECHNIQUE: 3 views of the right ankle COMPARISON: Same day tibia/fibula radiographs. FINDINGS: Bones: Acute spiral fracture deformity of the distal right fibula at the level of the syndesmosis. Acute linear fracture with angulation and distraction of the medial malleolus. Joints: There is slight widening of the medial clear space. Soft tissues: Soft tissue swelling. Other: Casting material of the right lower extremity. RAD/Ankle min 3 Views IMPRESSION: Acute medial and lateral malleolar fractures (Irene type B). Reading Location: [id number] CC: Dr. Maxime Villa MD; Dr. Malick Green DO Alterations Sewer: Signed Normal [facility] Emergency Department Summary on 09-26-2024 Emergency Department Summary [facility] Medical Records Department [address] [place] [address] Emergency Department Summary 09/26/24 MR#: [id number] Acct: [id number] Name: MERLE HOFF Rep #: [id number] : 1980 44 From: Malick Green DO PCP: Dr. Maxime Villa MD Status:DEP ER Location: ED HPI History of Present Illness Chief Complaint: Fall Informant: patient, spouse/S.O. and EMS Narrative Narrative: 44-year-old female presenting to the emergency room with fracture dislocation of the right ankle. Patient was coming down the stairs this morning when she missed stepped and fell the last few stairs. She notes pain and injury to the right ankle. She has not noted any other injuries. She has not anything to eat or drink today. She is not on blood thinners. Patient has a history of sleep apnea as well as GERD. [facility] Medical History Wears contact lenses Wears glasses Alcohol use Anemia Difficulty swallowing Gastric reflux Former smoker CPAP (continuous positive airway pressure) dependence Sleep apnea Shortness of breath on exertion History of echocardiogram Obstructive sleep apnea IBS (irritable bowel syndrome) Hypertension Depression Anxiety Home Medications ???Medication ???Instructions ???Recorded ???Last Taken ???Type alprazolam 0.5 mg tablet (Xanax) 0.5 mg PO QHS PRN anxiety 09/26/22 Unknown History amlodipine 5 mg tablet 5 mg PO DAILY 09/26/22 04/04/23 Hi story bupropion HCl 150 mg tablet,12 hr 150 mg PO DAILY 09/26/22 Unknown History sustained-release (Wellbutrin SR) lisinopril 10 mg tablet 10 mg PO DAILY 09/26/22 04/04/23 H istory sertraline 100 mg tablet (Zoloft) 250 mg PO QHS 09/26/22 Unknown Hi story trazodone 150 mg tablet 100 - 150 mg PO DAILY 09/26/22 Unk nown History pantoprazole 40 mg tablet,delayed 40 mg PO QHS #30 tabs 09/21/24 Un known Rx release (Protonix) oxycodone-acetaminophen 5 mg-325 1 tab PO Q6H PRN PRN Pain 3 days 0 09/26/24 Unknown Rx mg tablet #12 TABLETS Allergy/AdvReac Type Severity Reaction Status Date / Time acetaminophen (From Vicodin) Allergy Mild Nausea/Vom/ Verified 09/26/24 09:52 Diarrhea hydrocodone (From Vicodin) Allergy Mild Nausea/Vom/ Verified 09/26/24 09:52 Diarrhea Family History Aunt Colon cancer Cancer lung Grandfather Heart disease Surgical History S/P wisdom tooth extraction Social History household members: spouse and children housing: house number of children: 3 current occupational status: employed current occupation: [employer] Smoking Status: Current some day smoker tobacco type: cigarettes alcohol intake: current alcohol intake frequency: a few times a month substance use type: does not use seatbelt use: always do you feel safe at home: Yes 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 garcia ROS ROS ED Constitutional Constitutional ED: Denies chills, fever(s) or weight loss Eyes Eyes: Denies change in vision or diplopia ENT ENT ED: Denies ear pain, rhinorrhea or sore throat Cardiovascular Cardiovascular: Denies chest pain, orthopnea, palpitations or racing heartbeat Respiratory/Chest Respiratory/Chest: Denies cough, dyspnea or orthopnea Gastrointestinal Gastrointestinal: Denies abdominal pain, diarrhea, nausea or vomiting Genitourinary Genitourinary ED: Denies dysuria, hematuria or urinary frequency Musculoskeletal Musculoskeletal: Reports other Details: See history of present illness ; Denies arthralgias or myalgias Integumentary Denies abscess or rash Neurologic Neurologic: Denies headache(s) or weakness Psychiatric Psychiatric: Denies anxiety, depression, suicidal ideation or suicidal thoughts Endocrine Endocrinology: Denies polydipsia, polyphagia or polyuria Allergic/Immunologic Allergic/Immunologic ED: Denies mouth swelling, tongue swelling or urticaria EXAM Physical Exam Const Vital Signs: 09/26/24 09:49 09/26/24 10:09 09/26/24 10:35 Temperature 99 F 98 F Temperature Source Oral Pulse Rate 50 L 50 L Pulse Rate [1 (Initial Baseline)] Pulse Rate [2] Pulse Rate [3] Pulse Rate [4] Pulse Rate [5] Respiratory Rate 18 18 Respiratory Rate [1 (Initial Baseline)] Respiratory Rate [2] Respiratory Rate [3] Respiratory Rate [4] Respiratory Rate [5] Respiratory Effort Blood Pressure 142/98 H 166/103 H Blood Pressure [1 (Initial Baseline)] Blood Pressure [2] Blood Pressure [3] Blood Pressure [4] Blood Pressure [5] Blood Pressure Mean 112 Baseline BP 166/103 Pulse Ox 98 10 (more content not included)... Normal [facility] Foot min 3 Viewson 5 Foot min 3 Views [facility] Imaging Services [address] [place], [place] [address] Foot min 3 Views MR#: [id number] Acct: [id number] Name: MERLE HOFF Rep #: [id number] : 1980 F 44 From: Salma Jones nd, MD PCP: Dr. Maxime Villa MD Status: REG ER Study: Foot min 3 Views Date of Exam: 09/26/24 Exam# [id number] Ordering Dr: Malick Green DO PROCEDURE: FOOT MIN 3 VIEWS 09/26/2024 REASON FOR EXAM: INJURY TECHNIQUE: 3 views of the right foot. COMPARISON: Same day right ankle and right tibia/fibula radiographs. FINDINGS: Bones: No acute osseous foot fracture. Visualization is slightly limited by overlying casting material. Joints: Normal alignment. Joint spaces preserved. No arthropathic features. Soft tissues: Soft tissue swelling of the lower ankle. RAD/Foot min 3 Views IMPRESSION: No acute osseous foot fracture. Visualization is slightly limited by overlying casting material. Reading Location: [facility] CC: Dr. Maxime Villa MD; Dr. Malick Green DO Alterations Sewer: Signed Normal [facility] Tibia Fibula 2 Viewson 09-26 Tibia Fibula 2 Views [facility] Imaging Services [address] [place] [address] Tibia Fibula 2 Views MR#: [id number] Acct: [id number] Name: MERLE HOFF Rep #: [id number] : 1980 F 44 From: Salma Jones nd, MD PCP: Dr. Maxime Villa MD Status: REG ER Study: Tibia Fibula 2 Views Date of Exam: 09/26/24 Exam# [id number] Ordering Dr: Malick Green DO PROCEDURE: TIBIA FIBULA 2 VIEWS 09/26/2024 REASON FOR EXAM: INJURY TECHNIQUE: 3 views of the right tibia and fibula COMPARISON: None. FINDINGS: Bones: No acute fracture of the proximal tibia or fibula. See same day ankle/foot radiographs for discussion of distal fractures. Joints: Normal alignment at the knee joint. Soft tissues: Soft tissues are unremarkable. Other: Right lower leg casting material. RAD/Tibia Fibula 2 Views IMPRESSION: No acute fracture of the proximal tibia or fibula. See same day ankle/foot radiographs for discussion of distal fractures. Reading Location: [facility] CC: Dr. Maxime Villa MD; Dr. Malick Green DO Alterations Sewer: Signed Normal [facility] ABD Limited w/ Elastographyo n 08-05-2024 ABD Limited w/ Elastography [facility] Imaging Services [address] [place] [address] ABD Limited w/ Elastography MR#: [id number] Acct: [id number] Name: MERLE HOFF Rep #: [id number] : 1980 F 43 From: Dontae chaparro MD PCP: Dr. Maxime Villa MD Status: REG CLI Study: ABD Limited w/ Elastography Date of Exam: 07/18 Exam# [id number] Ordering Dr: Porfirio Huertas DO PROCEDURE: ABD LIMITED W/ ELASTOGRAPHY REASON FOR EXAM: Fatty infiltration of the liver. COMPARISON: Comparison is made with prior study dated August 12, 2023. TECHNIQUE: Right upper quadrant abdominal ultrasound. [facility]iki ElastQ Imaging shear wave elastography for non- invasive assessment of liver tissue stiffness. Kiki EPIQ Elite. FINDINGS: LIVER: Size: Unremarkable Length: 17.3 cm Echotexture: Diffusely echogenic suggesting fatty infiltration Contour: Normal Lesions: None identified Elastography: EQI Med: 4.9 kPa EQI Med Scott: 1.3 m/s IQR/Med: 18 %* GALLBLADDER: Normal COMMON BILE DUCT: Normal it measures 3.6 mm. PANCREAS: Normal Visualized portions of the right kidney are unremarkable. No right upper quadrant ascites. US/ABD Limited w/ Elastography IMPRESSION: NO TO MILD HEPATIC FIBROSIS Fatty infiltration of the liver. Reference Values: SRU <1.37 m/s (5.7kPa): No to mild fibrosis 1.37 m/s - 2.2 m/s: Moderate to severe fibrosis >2.2 m/s (15kPa): Significant fibrosis / cirrhosis METAVIR Score F2 or higher: 1.34 m/s (5.7kPa) F3 or higher: 1.55 m/s (7.3kPa) F4: 1.80 m/s (10kPa) * If the IQR/Med is >30%, the variance in the measurements is a large and the accuracy of the measurement may be in question. Reading Location: [id number] CC: Dr. Maxime Villa MD; Porfirio Huertas DO Alterations Sewer: Signed Normal [facility] Gastroenterology Visit Repor ton 07-23-2024 Gastroenterology Visit Report [facility] [address] [place] [address] OFFICE VISIT Date of Service: 07/23/24 MR#: [id number] Acct: [id number] Name: MERLE HOFF Rep #: [id number] : 1980 Provider: Porfirio Huertas DO Age/Sex: 43/F Location: [facility] [place] Status: Signed Intake Vital Signs 04/04/23 05:53 Height 5 ft 2 in Intake Visit Reasons: 3 M FU Allergies acetaminophen (From Vicodin) Allergy (Mild, Verified 07/31/23 15:38) Nausea/Vom/Diarrhea hydrocodone (From Vicodin) Allergy (Mild, Verified 07/31/23 15:38) Nausea/Vom/Diarrhea Medications ???Medication ???Instructions ???Recorded ???Confirmed ???Type alprazolam 0.5 mg tablet (Xanax) 0.5 mg PO QHS PRN anxiety 09/26/22 07/23/24 History amlodipine 5 mg tablet 5 mg PO DAILY 09/26/22 07/23/24 Hi story bupropion HCl 150 mg tablet,12 hr 150 mg PO DAILY 09/26/22 07/23/24 History sustained-release (Wellbutrin SR) lisinopril 10 mg tablet 10 mg PO DAILY 09/26/22 07/23/24 H istory sertraline 100 mg tablet (Zoloft) 250 mg PO QHS 09/26/22 07/23/24 H istory trazodone 150 mg tablet 100 - 150 mg PO DAILY 09/26/2201/07 History pantoprazole 40 mg tablet,delayed 40 mg PO QHS 04/23/24 07/23/24 Hi story release (Protonix) PFSH Medical History Alcohol use Anemia Anxiety CPAP (continuous positive airway pressure) dependence Depression Difficulty swallowing Former smoker Gastric reflux History of echocardiogram Hypertension IBS (irritable bowel syndrome) Obstructive sleep apnea Shortness of breath on exertion Sleep apnea Wears contact lenses Wears glasses Surgical History S/P wisdom tooth extraction Family History Aunt Colon cancer Cancer lung Grandfather Heart disease Social History household members: spouse and children housing: house number of children: 3 current occupational status: employed current occupation: [employer] Smoking Status: Current some day smoker tobacco type: cigarettes alcohol intake: current alcohol intake frequency: a few times a month substance use type: does not use seatbelt use: always do you feel safe at home: Yes additional social history: - Inna garcia HPI HPI Details: MERLE HOFF, is a 43 F who presents to the office today for follow up. Gynecology established . noting difficulty with IBS and referred to GI. *BGI established 02.05.23 BM alternate between constipation (lack of BM or hard/small stools) with loose stools and abdominal cramping lasting all day for 1-2 days, with all BM she has mucus and will leak from her rectum uncontrollably; bloating is a daily issue. Hemorrhoids are also a problem. Intermittent GERD is also a problem, managed with PRN Zantac and TUMs. Feels a lot of her symptoms are stress related. Strong FH of colon cancer on both sides of her family; her parents have not experienced colon cancer to date. Last colonoscopy 10 years prior 04.04.23 EGD and Colonoscopy Bx???Contact 04.22.23 with results.???Start protonix???work at dietary changes and update clinic to discuss ongoing need for bowel management changes and possible hiatal hernia repair. OV 07.31.23 Recently decreased pantoprazole 40 mg once daily as directed. Alternating constipation, diarrhea, and abdominal cramping. Nearly constant bloating. After having a bowel movement will have mucous leaking from rectum for rest of the day. Hemorrhoids also continue. Heartburn after certain foods, times of increased stress, and occasionally during the night. GET 3.13.24 normal 48.06 minutes abd US 4.30.24 There is no demonstrated mass lesion. Median liver stiffness measured 4.9 kPa. OV 8.8.24 pt reports continued symptoms of nausea, diarrhea, abd pain, gas/bloating, heartburn, and difficulty swallowing her pills. OV 11.8.24 pt reports that her symptoms have improved from previous visit. Continues to have difficulty swallowing her pills. Has occasional abdominal discomfort from bloating. OV 2.7.25 pt reports alternating bowel movements, but states that it is improved from before. pt reports that pantoprazole is helpful for her HB. ROS Const Constitutional: Positive for fatigue and weight change (weight loss); No fever(s) ENT ENT: No difficulty swallowing Gastro GI: Positive for bloating, diarrhea, heartburn and excessive flatus; No abdominal pain, belching, change in bowel habits, change in stool character, coffee ground emesis, constipation, cramping, difficulty swallowing, feeling full early, incontinent of stools, Vomiting blood/hematemesis, Blood in stool, loose st (more content not included)... Normal [facility] Albumin Elph [Mass/Vol]Order ed By: Porfirio Huertas on 08-04-2023 Albumin [Mass/Vol] 3.7 g/dL 2.9-4.4 [facility] Chocolate IgE serumOrdered B y: Porfirio Huertas on 08-04-2023 Chocolate IgE Qn (S) <0.10 kU/L Class 0 [facility] Interpretation of serum or p lasma protein pattern by immunofixation (narrative resultOrdered By: Porfirio Huertas on 08-04-2023 Protein Fractions Immunofixation Alverto [Interp] Not Observed g/dL Not Observed [facility] Laboratory - Miscellaneous t estsOrdered By: Porfirio Huertas on 08-04-2023 Service comment (Unsp spec) [Interp] Comment . [facility] Comment on above: Levels of Specific I gE Class Description of Class ----- < 0.10 0 Negative 0.10 - 0.31 0/I Equivocal/Low 0.32 - 0.55 I Low 0.56 - 1.40 II Moderate 1.41 - 3.90 III High 3.91 - 19.00 IV Very High 19.01 - 100.00 V Very High >100.00 Very High No Panel InformationOrdered By: Porfirio Huertas on 08-04-2023 Addendum Document Comment . [facility] Comment on above: Protein electrophore sis scan will follow via computer,mail, or tile mechanic helper delivery. Endomysial IgA Antibody Negative Negative [facility] Immunoglobulin G4 11 mg/dL 2-96 [facility] Immunoglobulin M 120 mg/dL 26-217 [facility] Mussel Allergen IgE Antibody <0.10 kU/L Class 0 [facility] Shrimp Allergen <0.10 kU/L Class 0 [facility] Serum IgG subclass 1 measure ment (mass/volume)Ordered By: Porfirio Huertas on 08-04-2023 IgG subclass 1 (S) [Mass/Vol] 267 mg/dL 248-810 [facility] Serum IgG subclass 2 measure ment (mass/volume)Ordered By: Porfirio Huertas on 08-04-2023 IgG subclass 2 (S) [Mass/Vol] 430 mg/dL 130-555 [facility] Serum IgG subclass 3 measure ment (mass/volume)Ordered By: Porfirio Huertas on 08-04-2023 IgG subclass 3 (S) [Mass/Vol] 57 mg/dL 15-102 [facility] Serum [id number] measu rement by electrophoresisOrdered By: Porfirio Huertas on 08-04-2023 Alpha 1 globulin Elph [Mass/Vol] 0.2 g/dL 0.0-0.4 [facility] Alpha 1 globulin Elph [Mass/Vol] 0.7 g/dL 0.4-1.0 [facility] Serum beef IgE antibody assa y (units/volume)Ordered By: Porfirio Huertas on 08-04-2023 Beef IgE Qn (S) <0.10 kU/L Class 0 [facility] Serum codfish IgE antibody a ssay (units/volume)Ordered By: Porfirio Huertas on 08-04-2023 Codfish IgE Qn (S) <0.10 kU/L Class 0 [facility] Serum corn IgE antibody assa y (units/volume)Ordered By: Porfirio Huertas on 08-04-2023 [place] IgE Qn (S) <0.10 kU/L Class 0 [facility] Serum cow milk IgE antibody assay (units/volume)Ordered By: Porfirio Huertas on 08-04-2023 Cow milk IgE Qn (S) <0.10 kU/L Class 0 [facility] Serum globulin measurement ( mass/volume)Ordered By: Porfirio Huertas on 08-04-2023 Globulin (S) [Mass/Vol] 3.0 g/dL 2.2-3.9 [facility] Serum or plasma IgA measurem ent (mass/volume)Ordered By: Porfirio Huertas on 08-04-2023 IgA [Mass/Vol] 349 mg/dL 87-352 [facility] Serum or plasma IgG measurem ent (mass/volume)Ordered By: Porfirio Huertas on 08-04-2023 IgG [Mass/Vol] 719 mg/dL 586-1602 [facility] IgG [Mass/Vol] Not Reportable [facility] Serum or plasma beta globuli n measurement by electrophoresis (mass/volume)Ordered By: Porfirio Huertas on 08-04-2023 Beta globulin Elph [Mass/Vol] 1.2 g/dL 0.7-1.3 [facility] Serum or plasma gamma globul in measurement by electrophoresis (mass/volume)Ordered By: Porfirio Huertas on 08-04-2023 Gamma globulin Elph [Mass/Vol] 0.9 g/dL 0.4-1.8 [facility] Serum or plasma immunoelectr ophoresis interpretation (nominal result)Ordered By: Porfirio Huertas on 08-04-2023 Interpretation IEP [Interp] Comment . [facility] Comment on above: No monoclonality det ected. Serum peanut IgE antibody as say (units/volume)Ordered By: Porfirio Huertas on 08-04-2023 Peanut IgE Qn (S) <0.10 kU/L Class 0 [facility] Serum pork IgE antibody assa y (units/volume)Ordered By: Porfirio Huertas on 08-04-2023 Pork IgE Qn (S) <0.10 kU/L Class 0 [facility] Serum salmon IgE antibody as say (units/volume)Ordered By: Porfirio Huertas on 08-04-2023 [place] IgE Qn (S) <0.10 kU/L Class 0 [facility] Serum soybean IgE antibody a ssay (units/volume)Ordered By: Porfirio Huertas on 08-04-2023 Soybean IgE Qn (S) <0.10 kU/L Class 0 [facility] Serum tissue transglutaminas e IgA antibody assay (units/volume)Ordered By: Porfirio Huertas on 08-04-2023 tTG IgA Qn (S) <2 U/mL 0-3 [facility] Comment on above: Negative 0 - 3 Weak Positive 4 - 10 Positive >10 Tissue Transglutaminase (tTG) has been identified as the endomysial antigen. Studies have demonstr- ated that endomysial IgA antibodies have over 99% specificity for gluten sensitive enteropathy. Serum tuna IgE antibody assa y (units/volume)Ordered By: Porfirio Huertas on 08-04-2023 Tuna IgE Qn (S) <0.10 kU/L Class 0 [facility] Serum wheat IgE antibody ass ay (units/volume)Ordered By: Porfirio Huertas on 08-04-2023 Wheat IgE Qn (S) <0.10 kU/L Class 0 [facility] Serum whole egg IgE antibody assay (units/volume)Ordered By: Porfirio Huertas on 08-04-2023 Whole Egg IgE Qn (S) <0.10 kU/L Class 0 [facility] Comment on above: Performed at: [address] [id number] Director: Alessandra Navas MD, Phone: [phone] Thin prep Papanicolaou smear with manual screeningOrdered By: Porfirio Huertas on 08-04-2023 Thin prep Papanicolaou smear with manual screening 114.5 ng/mL 0.0-101.8 [facility] Comment on above: Chromogranin A perfo rmed by [employer] KRYPTORmethodologyValues obtained with different assay methods or kits cannotbe used interchangeably.Performed at: [facility] [employer] [id number] Director: Thomas Guallpa PhD, Phone: [phone] at: [address] [id number] Director: Alessandra Navas MD, Phone: [phone] Thin prep Papanicolaou smear with manual screening 1.3 0.7-1.7 [facility] Total protein bloodOrdered B y: Porfirio Huertas on 08-04-2023 Protein [Mass/Vol] 6.7 g/dL 6.0-8.5 [facility] Laboratory - Chemistry and C hemistry - challengeOrdered By: Jamie Lopez on 04-04-2023 HCG ( test) Ql (U) Negative [facility] Comment on above: Very dilute urine sp ecimens, as indicated by a low specificgravity, may not contain patient care representative levels of hCG. If is still suspected, a first morning urinespecimen should be collected 48 hours later and tested. No Panel InformationOrdered By: Porfirio Huertas on 03-08-2023 Giardia Antigen (EVANGELINA) [facility] Stool Calprotectin <5 ug/g 0-120 [facility] Comment on above: Concentration Interp retation Follow-Up< 5 - 50 ug/g Normal None>50 -120 ug/g Borderline Re-evaluate in 4-6 weeks >120 ug/g Abnormal Repeat as clinically indicatedPerformed at: [address] [id number] Director: Thomas Guallpa PhD, Phone: [phone] at: [address] [id number] Director: Alessandra Navas MD, Phone: [phone] Stool Neutral Fats Normal . [facility] Comment on above: Normal (<60 Droplets /HPF) Stool Pancreatic Elastase 272 >200 [facility] Comment on above: Result Units: ug Yin st./g Severe Pancreatic Insufficiency: <100 Moderate Pancreatic Insufficiency: 100 - 200 Normal: >200Performed at: [address] [id number] Director: Alessandra Navas MD, Phone: [phone] Ova and parasitesOrdered By: Porfirio Huertas on 03-08-2023 Ova and parasites identified LM Nom (Unsp spec) [facility] Qualitative fecal fat or lip idsOrdered By: Porfirio Huertas on 03-08-2023 Fat Ql (Stl) Increased . [facility] Comment on above: Normal (<100 Droplet s/HPF) Absolute lymphocyte countOrd ered By: Porfirio Huertas on 03-03-2023 Lymphocytes Auto (Unsp spec) [#/Vol] 2.04 10*3/uL 0.83-4.51 [facility] Albumin Elph [Mass/Vol]Order ed By: Porfirio Huertas on 03-03-2023 Albumin [Mass/Vol] 3.9 g/dL 2.9-4.4 [facility] Atypical perinuclear antineu trophil cytoplasmic antibodies measurementOrdered By: Porfirio Huertas on 03-03-2023 Neutrophil cytoplasmic Ab.perinuclear.atypical IF (S) [Titer] <1:20 titer Neg:<1:20 [facility] Comment on above: The atypical pANCA p attern has been observed in asignificant percentage of patients with ulcerative colitis,primary sclerosing cholangitis and autoimmune hepatitis. Basophil percentageOrdered B y: Porfirio Huertas on 03-03-2023 Basophil percentage < 0.2 AI 0.0-0.9 [facility] Basophils/100 WBC (Bld) 0.7 % 0-1 [facility] Bilirubin [Mass/Vol] 0.30 mg/dL 0.20-1.00 [facility] Comment on above: For patients on eltr ombopag therapy, use of Dimension [place] TBIL is not recommended. Chloride [Moles/Vol] 106 mmol/L 98-107 [facility] Eosinophils/100 WBC (Bld) 2.9 % 0-5 [facility] Glucose [Mass/Vol] 96 mg/dL 74-106 [facility] LDH [Catalytic activity/Vol] 139 U/L 84-246 [facility] Neutrophils (Bld) [#/Vol] 4.4 10*3/uL 2.0-7.7 [facility] Neutrophils/100 WBC (Bld) 60.3 % 47-70 [facility] Potassium [Moles/Vol] 3.7 mmol/L 3.5-5.1 [facility] Protein [Mass/Vol] 7.4 g/dL 6.4-8.2 [facility] Sodium [Moles/Vol] 138 mmol/L 136-145 [facility] WBC (Bld) [#/Vol] 7.3 10*3/uL 4.4-11.0 [facility] Blood erythrocytes count (nu mber/volume)Ordered By: Porfirio Huertas on 03-03-2023 RBC (Bld) [#/Vol] 4.64 10*6/uL 4.2-5.4 [facility] Blood hemoglobin measurement (mass/volume)Ordered By: Porfirio Huertas on 03-03-2023 Hemoglobin (Bld) [Mass/Vol] 13.4 g/dL 12.0-15.0 [facility] Blood lymphocytes/100 leukoc ytesOrdered By: Porfirio Huertas on 03-03-2023 Lymphocytes/100 WBC (Bld) 28.0 % 19-41 [facility] Blood monocytes/100 leukocyt esOrdered By: Porfirio Huertas on 03-03-2023 Monocytes/100 WBC (Bld) 7.8 % 0-10 [facility] Blood platelet mean volumeOr dered By: Porfirio Huertas on 03-03-2023 Platelet mean volume (Bld) [Entitic vol] 10.8 fL 6.2-12.0 [facility] Chocolate RASTOrdered By: Ra sam Huertas on 03-03-2023 Chocolate IgE Qn (S) <0.10 kU/L Class 0 [facility] Comment on above: Effective March 17, 2023 [id number] Allergen Profile, BasicFood be made non-orderable. [facility] offers [id number](14).Performed at: [address] [id number] Director: Thomas Guallpa PhD, Phone: [phone] at: [address] [id number] Director: Alessandra Navas MD, Phone: [phone] Determination of erythrocyte mean corpuscular volume (MCV)Ordered By: Porfirio Huertas on 03-03-2023 MCV (RBC) [Entitic vol] 89.2 fL 81-99 [facility] Erythrocyte sedimentation ra teOrdered By: Porfirio Huertas on 03-03-2023 ESR (Bld) [Velocity] 9 mm/h 0-30 [facility] Hematocrit Auto (Bld) [Volum e fraction]Ordered By: Porfirio Huertas on 03-03-2023 Hematocrit (Bld) [Volume fraction] 41.4 % 37-47 [facility] Interpretation of serum or p lasma protein pattern by immunofixation (narrative resultOrdered By: Porfirio Huertas on 03-03-2023 Protein Fractions Immunofixation Alverto [Interp] See comment [facility] Comment on above: NOT OBSERVED Laboratory - Chemistry and C hemistry - challengeOrdered By: Porfirio Huertas on 03-03-2023 ALP [Catalytic activity/Vol] 57 U/L 45-117 [facility] ALT [Catalytic activity/Vol] 21 U/L 13-56 [facility] CO2 [Moles/Vol] 26.0 mmol/L 21.0-32.0 [facility] Globulin (S) [Mass/Vol] 3.6 g/dL 2.2-4.2 [facility] Urea nitrogen/Creatinine [Mass ratio] 10.6 mg/mg 10-20 [facility] Laboratory - Hematology and Cell countsOrdered By: Porfirio Huertas on 03-03-2023 Erythrocyte distribution width (RBC) [Entitic vol] 43.8 fL 35.1-43.9 [facility] Erythrocyte distribution width (RBC) [Ratio] 13.4 % 11.6-14.6 [facility] Immature granulocytes/100 WBC (Bld) 0.300 % 0.0-0.9 [facility] Comment on above: IG% - Immature Granu locytes (promyelocytes, myelocytes and metamyelocytes) > 1% indicates that a LEFT SHIFT is Present. MCH (RBC) [Entitic mass] 28.9 pg 27.0-32.0 [facility] Nucleated RBC/100 WBC (Bld) [Ratio] 0 % 0-5 [facility] Laboratory - Miscellaneous t estsOrdered By: Porfirio Huertas on 03-03-2023 Service comment (Unsp spec) [Interp] Comment . [facility] Comment on above: Levels of Specific I gE Class Description of Class ----- < 0.10 0 Negative 0.10 - 0.31 0/I Equivocal/Low 0.32 - 0.55 I Low 0.56 - 1.40 II Moderate 1.41 - 3.90 III High 3.91 - 19.00 IV Very High 19.01 - 100.00 V Very High >100.00 Very High MCHC Auto (RBC) [Mass/Vol]Or dered By: Porfirio Huertas on 03-03-2023 MCHC (RBC) [Mass/Vol] 32.4 g/dL 32-36 [facility] No Panel InformationOrdered By: Porfirio Huertas on 03-03-2023 Addendum Document Comment . [facility] Comment on above: Protein electrophore sis scan will follow via computer,mail, or tile mechanic helper delivery. Centromere B Antibody <0.2 AI 0.0-0.9 [facility] Endomysial IgA Antibody Negative Negative [facility] Comment on above: Serum is slightly he molyzed Estimated GFR (MDRD) Amer 68 mL/min >60 [facility] Comment on above: GFR Calc Estimated GFR (MDRD) Non-Af Amer 56 mL/min >60 [facility] Comment on above: Non- GFR Calc Immunoglobulin E 9 IU/mL 6-495 [facility] Miscellaneous Test See comment [facility] Comment on above: TEST RESULT LIMITSIB D Expanded Panel Agata 26 units 0-50 Negative <45 Equivocal 45 - 50 Positive >50 ACCA 30 units 0-90 Negative <80 Equivocal 80 - 90 Positive >90 ALCA 16 units 0-60 Negative <55 Equivocal 55 - 60 Positive >60 AMCA 12 units 0-100 Negative < 90 Equivocal 90 - 100 Positive >100 This test was developed and its performance characteristics determined by [employer]. It has not been cleared or approved by the Food and Drug Administration. The FDA has determined that such clearance or approval is not necessary.Atypical pANCA Negative Negative Comments Pattern is not suggestive of Inflammatory Bowel Disease ____ TESTING PERFORMED AT [facility]. ORIGINAL REPORT ON FILE IN LAB CONTAINS ADDITIONAL TEST SITE INFORMATION. FLANGER Antibody <0.2 AI 0.0-0.9 [facility] Scallop Allergen <0.10 kU/L Class 0 [facility] Seafood Group Allergens (RAST) Negative . [facility] Comment on above: Allergens in this mi x are: Blue mussel Fish [place] Shrimp TunaEffective March 17, 2023 [id number] Food Mix(Seafoods) will be made non-orderable. [facility] [id number] Allergens(5). Sesame Seed Allergen IgE Antibody <0.10 kU/L Class 0 [facility] Shrimp Allergen <0.10 kU/L Class 0 [facility] Platelets bldOrdered By: Kirk Huertas on 03-03-2023 Platelets (Bld) [#/Vol] 239 10*3/uL 150-450 [facility] Serum DNA double strand anti body assay (units/volume)Ordered By: Porfirio Huertas on 03-03-2023 DNA double strand Ab Qn (S) [IU]/mL 0-9 [facility] Comment on above: Negative <5 Equivoca l 5 - 9 Positive >9 Serum Gloria-1 antibody assay (u nits/volume)Ordered By: Porfirio Huertas on 03-03-2023 Gloria-1 extractable nuclear Ab Qn (S) <0.2 AI 0.0-0.9 [facility] Serum Scl-70 extractable nuc lear antibody assay (units/volume)Ordered By: Porfirio Huertas on 03-03-2023 SCL-70 extractable nuclear Ab Qn (S) <0.2 AI 0.0-0.9 [facility] Serum Arias extractable nucl ear antibody detectionOrdered By: Porfirio Huertas on 03-03-2023 Arias extractable nuclear Ab Ql (S) <0.2 AI 0.0-0.9 [facility] Serum [id number] measu rement by electrophoresisOrdered By: Porfirio Huertas on 03-03-2023 Alpha 1 globulin Elph [Mass/Vol] 0.3 g/dL 0.0-0.4 [facility] Alpha 1 globulin Elph [Mass/Vol] 0.7 g/dL 0.4-1.0 [facility] Serum beef IgE antibody assa y (units/volume)Ordered By: Porfirio Huertas on 03-03-2023 Beef IgE Qn (S) <0.10 kU/L Class 0 [facility] Serum black walnut IgE antib joycelyn assay (units/volume)Ordered By: Porfirio Huertas on 03-03-2023 [place] IgE Qn (S) <0.10 kU/L Class 0 [facility] Serum clam IgE antibody assa y (units/volume)Ordered By: Porfirio Huertas on 03-03-2023 Clam IgE Qn (S) <0.10 kU/L Class 0 [facility] Serum classic neutrophil cyt oplasmic antibody assay (units/volume)Ordered By: Porfirio Huertas on 03-03-2023 Neutrophil cytoplasmic Ab.classic Qn (S) <1:20 titer Neg:<1:20 [facility] Serum codfish IgE antibody a ssay (units/volume)Ordered By: Porfirio Huertas on 03-03-2023 Codfish IgE Qn (S) <0.10 kU/L Class 0 [facility] Serum corn IgE antibody assa y (units/volume)Ordered By: Porfirio Huertas on 03-03-2023 [place] IgE Qn (S) <0.10 kU/L Class 0 [facility] Serum cow milk IgE antibody assay (units/volume)Ordered By: Porfirio Huertas on 03-03-2023 Cow milk IgE Qn (S) <0.10 kU/L Class 0 [facility] Serum egg white IgE antibody assay (units/volume)Ordered By: Porfirio Huertas on 03-03-2023 Egg white IgE Qn (S) <0.10 kU/L Class 0 [facility] Serum globulin measurement ( mass/volume)Ordered By: Porfirio Huertas on 03-03-2023 Globulin (S) [Mass/Vol] 3.0 g/dL 2.2-3.9 [facility] Serum or plasma C reactive p rotein measurement (mass/volume)Ordered By: Porfirio Huertas on 03-03-2023 CRP [Mass/Vol] mg/L 0.0-3.0 [facility] Comment on above: C-Reactive Protein ( CRP) provides useful information for thediagnosis, therapy and monitoring of inflammatory processesand associated diseases. For the evaluation of Relative Riskfor Cardiovascular Disease, a High Sensitivity CRP (HSCRP)should be ordered. Serum or plasma IgA measurem ent (mass/volume)Ordered By: Porfirio Huertas on 03-03-2023 IgA [Mass/Vol] 346 mg/dL 87-352 [facility] Serum or plasma IgG measurem ent (mass/volume)Ordered By: Porfirio Huertas on 03-03-2023 IgG [Mass/Vol] 774 mg/dL 586-1602 [facility] Serum or plasma IgM measurem ent (mass/volume)Ordered By: Porfirio Huertas on 03-03-2023 IgM [Mass/Vol] 123 mg/dL 26-217 [facility] Serum or plasma albumin luis e urement (mass/volume)Ordered By: Porfirio Huertas on 03-03-2023 Albumin [Mass/Vol] 3.8 g/dL 3.2-5.0 [facility] Serum or plasma albumin/glob ulin mass ratioOrdered By: Porfirio Huertas on 03-03-2023 Albumin/Globulin [Mass ratio] 1.1 {ratio} 0.9-2.4 [facility] Serum or plasma beta globuli n measurement by electrophoresis (mass/volume)Ordered By: Porfirio Huertas on 03-03-2023 Beta globulin Elph [Mass/Vol] 1.2 g/dL 0.7-1.3 [facility] Serum or plasma calcium luis e urement (mass/volume)Ordered By: Porfirio Huertas on 03-03-2023 Calcium [Mass/Vol] 8.7 mg/dL 8.5-10.1 [facility] Serum or plasma creatinine m easurement (mass/volume)Ordered By: Porfirio Huertas on 03-03-2023 Creatinine [Mass/Vol] 1.13 mg/dL 0.55-1.02 [facility] Comment on above: The validity of the calculated GFR & GFRAA in patients over 70 years has not been determined. Clinical correlation is essential. Serum or plasma gamma globul in measurement by electrophoresis (mass/volume)Ordered By: Porfirio Huertas on 03-03-2023 Gamma globulin Elph [Mass/Vol] 0.9 g/dL 0.4-1.8 [facility] Serum or plasma gastrin luis e urement (mass/volume)Ordered By: Porfirio Huertas on 03-03-2023 Gastrin [Mass/Vol] 29 pg/mL 0-115 [facility] Comment on above: Siemens Immulite 200 0 Immunochemiluminometric assay (ICMA)Values obtained with different assay methods or kits cannotbe used interchangeably. Results cannot be interpreted asabsolute evidence of the presence or absence of malignantdisease.Performed at: - [employer] [id number] Director: Thomas Guallpa PhD, Phone: [phone] at: - [facility] [id number] Director: Alessandra Navas MD, Phone: [phone] Serum or plasma immunoelectr ophoresis interpretation (nominal result)Ordered By: Porfirio Huertas on 03-03-2023 Interpretation IEP [Interp] Comment . [facility] Comment on above: No monoclonality det ected. Serum or plasma urea nitroge n measurement (mass/volume)Ordered By: Porfirio Huertas on 03-03-2023 Urea nitrogen [Mass/Vol] 12 mg/dL 12-31 [facility] Serum peanut IgE antibody as say (units/volume)Ordered By: Porfirio Huertas on 03-03-2023 Peanut IgE Qn (S) <0.10 kU/L Class 0 [facility] Serum perinuclear neutrophil cytoplasmic antibody titer by immunofluorescenceOrdered By: Porfirio Huertas on 03-03-2023 Neutrophil cytoplasmic Ab.perinuclear IF (S) [Titer] <1:20 titer Neg:<1:20 [facility] Comment on above: The presence of posi tive fluorescence exhibiting P-ANCA orC-ANCA patterns alone is not specific for the diagnosis ofWegener's Granulomatosis (WG) or microscopic polyangiitis.Decisions about treatment should not be based solely onANCA IFA results. The International ANCA Group Consensusrecommends follow up testing of positive sera with both AZ-3 and MPO-ANCA enzyme immunoassays. As many as 5% serumsamples are positive only by EIA. Ref. AM J Clin [id number];111:507-513. Serum pork IgE antibody assa y (units/volume)Ordered By: Porfirio Huertas on 03-03-2023 Pork IgE Qn (S) <0.10 kU/L Class 0 [facility] Serum soybean IgE antibody a ssay (units/volume)Ordered By: Porfirio Huertas on 03-03-2023 Soybean IgE Qn (S) <0.10 kU/L Class 0 [facility] Serum tissue transglutaminas e IgA antibody assay (units/volume)Ordered By: Porfirio Huertas on 03-03-2023 tTG IgA Qn (S) <2 U/mL 0-3 [facility] Comment on above: Negative 0 - 3 Weak Positive 4 - 10 Positive >10 Tissue Transglutaminase (tTG) has been identified as the endomysial antigen. Studies have demonstr- ated that endomysial IgA antibodies have over 99% specificity for gluten sensitive enteropathy. Serum wheat IgE antibody ass ay (units/volume)Ordered By: Porfirio Huertas on 03-03-2023 Wheat IgE Qn (S) <0.10 kU/L Class 0 [facility] Serum whole egg IgE antibody assay (units/volume)Ordered By: Porfirio Huertas on 03-03-2023 Whole Egg IgE Qn (S) <0.10 kU/L Class 0 [facility] Thin prep Papanicolaou smear with manual screeningOrdered By: Porfirio Huertas on 09-18-2023 Thin prep Papanicolaou smear with manual screening 14 U/L 15-37 [facility] Thin prep Papanicolaou smear with manual screening 6 5-15 [facility] Thin prep Papanicolaou smear with manual screening 1.4 0.7-1.7 [facility] Total protein bloodOrdered B y: Porfirio Huertas on 03-03-2023 Protein [Mass/Vol] 6.9 g/dL 6.0-8.5 [facility] Cervical or vagninal specime n microscopic examination by cytology stain (reported asOrdered By: Cassy Cohen on 09-26-2022 Cytology report Cyto stain Doc (Cvx/Vag) Comment . [facility] Comment on above: The Pap smear is a s creening test designed to aid in thedetection of premalignant and malignant conditions of theuterine cervix. It is not a diagnostic procedure andshould not be used as the sole means of detecting cervicalcancer. Both false-positive and false-negative reports dooccur. Detection in cervical specim en of any of human papilloma virus (HPV) 16, 18, 31, 33,Ordered By: Cassy Cohen on 09-26-2022 HPV 16+18+31+33+35+39+45+51+5 2+56+58+59+66+68 DNA Probe+sig amp Ql (Cvx) Negative Negative [facility] Comment on above: This nucleic acid am plification test detects fourteen high-risk HPV types (16,18,31,33,35,39,45,51,52,56,58,59,66,68)without differentiation. Laboratory - CytologyOrdered By: Cassy Cohen on 09-26-2022 Managed Services Consultant Cyto stain Nom (Cvx/Vag) [ID] Comment . [facility] Comment on above: Reilly Caputo, Plant Protection Guard (ASCP) Laboratory - Miscellaneous t estsOrdered By: Cassy Cohen on 09-26-2022 Service comment (Unsp spec) [Interp] Comment . [facility] Comment on above: This liquid based Th inPrep(R) pap test was screened withthe use of an image guided system. Service comment (Unsp spec) [Interp] . . [facility] Liquid-based cerv Pap + CT/G C by ELIESER w reflex to high-risk HPV for ASCUSOrdered By: Cassy Cohen on 09-26-2022 Cytology report Cyto stain.thin prep Doc (Cvx/Vag) Comment . [facility] Comment on above: Criteria not met, HP V Genotype not performed.Performed at: [facility] - [facility] [id number] Director: Mouna Diaz MD, Phone: [phone] at: =G - [facility] [address] [id number] Director: Mouna Diaz MD, Phone: [phone] No Panel InformationOrdered By: Cassy Cohen on 09-26-2022 Pathology report final diagnosis Narrative Comment . [facility] Comment on above: NEGATIVE FOR INTRAEP ITHELIAL LESION OR MALIGNANCY. Basophil percentageon 2021 Chloride [Moles/Vol] 110 mmol/L 98-107 [facility] Work Phone: Cholesterol [Mass/Vol] 220 mg/dL <200 [facility] Work Phone: Comment on above: <200 mg/dL Desirable 200-240 mg/dL Borderline >240 mg/dL High Risk Glucose [Mass/Vol] 101 mg/dL 74-106 [facility] Work Phone: Comment on above: Fasting Glucose resu lt from 100 to 125 mg/dL suggests IMPAIRED HOMEOSTASIS per A.D.A. criteria. Potassium [Moles/Vol] 4.2 mmol/L 3.5-5.1 [facility] Work Phone: Sodium [Moles/Vol] 139 mmol/L 136-145 [facility] Work Phone: Triglyceride [Mass/Vol] 110 mg/dL <199 [facility] Work Phone: Comment on above: The drugs N-Acetylcy steine and Metamizole may falsely depress this assay.Serum Triglycerides Reference Interval Normal <150 mg/dL Borderline high 150 - 199 mg/dL High 200 - 499 mg/dL Very High > or = 500 mg/dL Erythrocyte sedimentation ra em 03-20-2022 ESR (Bld) [Velocity] 16 mm/h 0-30 [facility] Work Phone: Laboratory - Chemistry and C hemistry - challengeon 03-20-2022 CO2 [Moles/Vol] 23.0 mmol/L 21.0-32.0 [facility] Work Phone: Urea nitrogen/Creatinine [Mass ratio] 12.8 mg/mg 10- [facility] Work Phone: No Panel Informationon 03-20 Estimated GFR (MDRD) Amer 71 mL/min >60 [facility] Work Phone: Comment on above: GFR Calc Estimated GFR (MDRD) Non-Af Amer 59 mL/min >60 [facility] Work Phone: Comment on above: Non- GFR Calc Thyroid Stimulating Hormone (TSH) 0.70 uIU/mL 0.358-3.74 [facility] Work Phone: Vitamin D 25-Hydroxy 33.4 ng/mL [facility] Work Phone: Comment on above: Vitamin D 25(OH) Sta tus Range Deficiency <20 ng/mL (50nmol/L) Insufficiency 20 - 30 ng/mL (50 - 75 nmol/L) Sufficiency 30 - 100 ng/mL (75 - 250 nmol/L) Toxicity >100 ng/mL (>250 nmol/L) Serum or plasma calcium luis e urement (mass/volume)on 03-20-2022 Calcium [Mass/Vol] 9.1 mg/dL 8.5-10.1 [facility] Work Phone: Serum or plasma cholesterol in HDL measurement (mass/volume)on 03-20-2022 Cholesterol in HDL [Mass/Vol] 56 mg/dL >40 [facility] Work Phone: Comment on above: The drugs N-Acetylcy steine and Metamizole may falsely depress this assay. Reference Range HDL <40 mg/dL Low HDL Cholesterol HDL >or= 60 mg/dL High HDL Cholesterol Serum or plasma cholesterol in VLDL measurement (mass/volume)on 03-20-2022 Cholesterol in VLDL [Mass/Vol] 22 mg/dL 5-40 [facility] Work Phone: Serum or plasma creatinine m easurement (mass/volume)on 03-20-2022 Creatinine [Mass/Vol] 1.09 mg/dL 0.55-1.02 [facility] Work Phone: Comment on above: The validity of the calculated GFR & GFRAA in patients over 70 years has not been determined. Clinical correlation is essential. Serum or plasma low density lipoprotein (LDL) cholesterol measurement (mass/volume)on 03-20-2022 Cholesterol in LDL [Mass/Vol] 142 mg/dL 0-130 [facility] Work Phone: Serum or plasma urea nitroge n measurement (mass/volume)on 03-20-2022 Urea nitrogen [Mass/Vol] 14 mg/dL 7-18 [facility] Work Phone: Thin prep Papanicolaou smear with manual screeningon 03-20-2022 Thin prep Papanicolaou smear with manual screening 6 5-15 [facility] Work Phone: Bilirubin Test strip Ql (U)o n 03-13-2022 Bilirubin Ql (U) Negative Negative [facility] Work Phone: Ketones Test strip Ql (U)on 03-13-2022 Ketones Ql (U) Negative Negative [facility] Work Phone: Nitrite Test strip Ql (U)on 03-13-2022 Nitrite Ql (U) Negative Negative [facility] Work Phone: Protein Test strip Ql (U)on 03-13-2022 Protein Ql (U) 15 mg/dl Negative [facility] Work Phone: Urine blood detectionon 02-15 RBC Ql (U) Negative Negative [facility] Work Phone: Urine clarityon 03-13-2022 Clarity (U) Clear Clear [facility] Work Phone: Urine color determinationon 03-13-2022 Color (U) Straw Yellow [facility] Work Phone: Urine glucose detectionon Glucose Ql (U) Normal mg/dl Normal [facility] Work Phone: Urine leukocyte esterase det ection by dipstickon 03-13-2022 Leukocyte esterase Test strip Ql (U) 100 /ul Negative [facility] Work Phone: Urine pHon 03-13-2022 pH (U) 7.0 [pH] 5.0 - 8.0 [facility] Work Phone: Urine specific gravity measu rementon 03-13-2022 Specific gravity (U) [Rel density] 1.005 1.002-1.03 0 [facility] Work Phone: Urobilinogen Auto test strip Ql (U)on 03-13-2022 Urobilinogen Ql (U) Normal mg/dl Normal [facility] Work Phone: Culture, urine Bacteria identified Cx Nom (U) Enterococcus faecalis [facility] Work Phone: Bacteria identified Cx Nom (U) Streptococcus agalactiae (B) [facility] Work Phone: Bacteria identified Cx Nom (U) Staphylococcus capitis [facility] Work Phone: Vital Signs Date Time Vital Sign Value Performing Clinician Faci lity 03-31-2025 11:00-0400 Body temperature 98.3 [degF] Dr. Maxime Villa MD Work Phone: [facility] 03-31-2025 11:00-0400 Diastolic blood pressure 68 mm[Hg] Dr. Maxime Villa MD Work Phone: [facility] 03-31-2025 11:00-0400 Heart rate 68 /min Dr. Maxime Villa MD Work Phone: [facility] 03-31-2025 11:00-0400 Respiratory rate 16 /min Dr. Maxime Villa MD Work Phone: [facility] 03-31-2025 11:00-0400 SaO2% (BldA) [Mass fraction] 98 % Dr. Maxime Villa MD Work Phone: 3(812)124-280539 [place] [address] 03-31-2025 11:00-0400 Systolic blood pressure 104 mm[Hg] Dr. Maxime Villa MD Work Phone: 1(118)106-982539 [place] [address] 03-31-2025 09:07-0400 Body height 157.[address] Maxime Villa MD Work Phone: 7(928)493-657765 [place] [address] 03-31-2025 09:07-0400 Body mass index (BMI) [Ratio] 30.7 kg/m2 Dr. Maxime Villa MD Work Phone: 9(982)590-352765 [place] [address] 03-31-2025 09:07-0400 Body weight 76.[address] Maxime Villa MD Work Phone: 1(004)581-830665 [place] [address] 10-04-2024 11:38-0400 Body temperature 97.9 [degF] Dr. Maxime Villa MD Work Phone: 1(972)501-242065 [place] [address] 10-04-2024 11:38-0400 Diastolic blood pressure 80 mm[Hg] Dr. Maxime Villa MD Work Phone: 7(688)952-203065 [place] [address] 10-04-2024 11:38-0400 Heart rate 71 /min Dr. Maxime Villa MD Work Phone: 6(454)852-215965 [place] [address] 10-04-2024 11:38-0400 Respiratory rate 16 /min Dr. Maxime Villa MD Work Phone: 4(915)742-737939 [place] [address] 10-04-2024 11:38-0400 SaO2% (BldA) [Mass fraction] 96 % Dr. Maxime Villa MD Work Phone: 7(077)723-396765 [place] [address] 10-04-2024 11:38-0400 Systolic blood pressure 124 mm[Hg] Dr. Maxime Villa MD Work Phone: 7(442)924-607739 [place] [address] 10-04-2024 09:51-0400 Inhaled oxygen flow rate 2 L/min Dr. Maxime Villa MD Work Phone: [facility] 10-04-2024 06:20-0400 Body height 157.[address] Maxime Villa MD Work Phone: [facility] 10-04-2024 06:20-0400 Body mass index (BMI) [Ratio] 29.8 kg/m2 Dr. Maxime Villa MD Work Phone: 6(636)481-864539 [place] [address] 10-04-2024 06:20-0400 Body weight [address] Maxime Villa MD Work Phone: 5(558)435-471965 [place] [address] 09-26-2024 11:45-0400 Body temperature 98 [degF] Dr. Maxime Villa MD Work Phone: 9(555)694-782765 [place] [address] 09-26-2024 11:45-0400 Diastolic blood pressure 98 mm[Hg] Dr. Maxime Villa MD Work Phone: 1(973)112-372365 [place] [address] 09-26-2024 11:45-0400 Heart rate 67 /min Dr. Maxime Villa MD Work Phone: 7(334)585-852065 [place] [address] 09-26-2024 11:45-0400 Respiratory rate 18 /min Dr. Maxime Villa MD Work Phone: 8(569)705-037965 [place] [address] 09-26-2024 11:45-0400 SaO2% (BldA) [Mass fraction] 99 % Dr. Maxime Villa MD Work Phone: 5(068)929-664539 [place] [address] 09-26-2024 11:45-0400 Systolic blood pressure 149 mm[Hg] Dr. Maxime Villa MD Work Phone: 2(284)424-461665 [place] [address] 09-26-2024 10:38-0400 Inhaled oxygen flow rate 4 L/min Dr. Maxime Villa MD Work Phone: 0(379)048-298665 [place] [address] 09-26-2024 09:49-0400 Body height 157.[address] Maxime Villa MD Work Phone: 2(686)248-063165 [place] [address] 09-26-2024 09:49-0400 Body mass index (BMI) [Ratio] 31.6 kg/m2 Dr. Maxime Villa MD Work Phone: [facility] 09-26-2024 09:49-0400 Body weight 78.[address] Maxime Villa MD Work Phone: 9(304)489-528284 [address] 04-04-2023 07:26-0400 Body temperature 98.5 [degF] Dr. Dheeraj Villa Work Phone: 7(884)001-929739 [place] [address] 04-04-2023 07:26-0400 Diastolic blood pressure 82 mm[Hg] Dr. Dheeraj Villa Work Phone: 0(339)160-898765 [place] [address] 04-04-2023 07:26-0400 Heart rate 60 /min Dr. Dheeraj Villa Work Phone: 7(420)185-031765 [place] [address] 04-04-2023 07:26-0400 Respiratory rate 16 /min Dr. Dheeraj Villa Work Phone: 8(957)681-047365 [place] [address] 04-04-2023 07:26-0400 SaO2% (BldA) [Mass fraction] 98 % Dr. Dheeraj Villa Work Phone: 0(630)832-288865 [place] [address] 04-04-2023 07:26-0400 Systolic blood pressure 100 mm[Hg] Dr. Dheeraj Villa Work Phone: [facility] 04-04-2023 05:53-0400 Body height 157.[address] Dheeraj Villa Work Phone: [facility] 04-04-2023 05:53-0400 Body mass index (BMI) [Ratio] 34.2 kg/m2 Dr. Dheeraj Villa Work Phone: 1(121)398-228939 [place] [address] 04-04-2023 05:53-0400 Body weight 84.[address] Dheeraj Villa Work Phone: 7(173)335-046339 [place] [address] 09-26-2022 10:44-0400 Body height 158.[address] Dheeraj Villa Work Phone: 1(600)215-935839 [place] [address] 09-26-2022 10:44-0400 Body mass index (BMI) [Ratio] 34 kg/m2 Dr. Dheeraj Villa Work Phone: [facility] 09-26-2022 10:44-0400 Body weight 85.[address] Dheeraj Villa Work Phone: [facility] 09-26-2022 10:44-0400 Diastolic blood pressure 82 mm[Hg] Dr. Dheeraj Villa Work Phone: [facility] 09-26-2022 10:44-0400 Systolic blood pressure 130 mm[Hg] Dr. Dheeraj Villa Work Phone: [facility] Encounters Encounter Date Encounter Type Care Provider Facility Start: 04-29-2025 ambulatory Liban Haile ty:[facility] Start: 04-25-2025 ambulatory SELF SELF Facility:[facility] Start: 04-15-2025 Encounter for other preprocedural examination Porfirio Huertas [facility] Start: 03-31-2025 ambulatory Porfirio Kiya Facility :[facility] Start: 03-31-2025 Non-patient / Non-visit Porfiriosam Huertas [facility] Start: 03-31-2025 End: 03-31-2025 Admission to same day surgery center Porfirio Kiya DO -Endoscopy Work Phone: Start: 03-31-2025 End: 03-31-[address] Maxime Villa MD Work Phone: -Endoscopy Start: 03-23-2025 End: 03-23-2025 Patient encounter procedure Tori WOLF -[facility] Work Phone: Start: 03-23-2025 End: 03-23-[address] Maxime Villa MD Work Phone: -[facility] Start: 03-05-2025 End: 03-05-2025 ambulatory SAHARA MARRERO Facility:[facility] Start: 01-19-2025 End: 01-19-2025 Patient encounter procedure Porfirio Huertas DO -[facility] Work Phone: Start: 01-19-2025 End: 01-19-[address] Maxime Villa MD Work Phone: -[facility] Start: 10-04-2024 End: 10-04-2024 Admission to same day surgery center Dr. Liban Stack DO -[facility] Start: 10-04-2024 End: 10-04-[address] Maxime Villa MD Work Phone: [facility] Work Phone: Start: 09-29-2024 End: 09-29-2024 Non-patient / Non-visit Dr. Yony Corral MD -[facility] Work Phone: Start: 09-29-2024 End: 09-29-[address] Maxime Villa MD Work Phone: [facility] Work Phone: Start: 09-29-2024 End: 09-29-2024 Patient encounter procedure Aura Gonzales PA -Cat Scan, [facility] Work Phone: Start: 09-29-2024 End: 09-29-2024 ambulatory Porfirio [facility] Start: 09-26-2024 End: 09-26-2024 Emergency department patient visit Dr. Maxime Villa MD Work Phone: -Emergency Department Work Phone: Start: 08-05-2024 End: 08-05-2024 Patient encounter procedure Porfiriosam Huertas DO -Ultrasound, [facility] Work Phone: Start: 08-05-2024 End: 08-05-2024 ambulatory Maxime Villa Facility:[facility] Start: 07-23-2024 End: 07-23-2024 Patient encounter procedure Porfirio Kiya [facility] Work Phone: Start: 07-23-2024 End: 07-23-2024 ambulatory Porfirio [place] Facility:[facility] Start: 07-21-2024 ambulatory Emily Gaona ENTERPRISE ENGINEER Faci lity:[facility] Start: 08-27-2023 End: 08-27-[address] Dheeraj Villa Work Phone: [facility] Work Phone: Start: 08-27-2023 End: 08-27-[address] Dheeraj Villa Work Phone: [facility]-Nuclear Medicine, [facility] Work Phone: Start: 08-12-2023 End: 08-12-[address] Dheeraj Villa Work Phone: [facility] Work Phone: Start: 08-12-2023 End: 08-12-[address] Dheeraj Villa Work Phone: [facility]-Ultrasound, [facility] Work Phone: Start: 08-04-2023 End: 08-04-[address] Dheeraj Villa Work Phone: [facility] Work Phone: Start: 08-04-2023 End: 08-04-[address] Dheeraj Villa Work Phone: [facility]-Laboratory Work Phone: Start: 07-31-2023 End: 07-31-[address] Dheeraj Villa Work Phone: [facility] Work Phone: Start: 04-04-2023 Non-patient / Non-visit Dr. Dheeraj Villa Work Phone: [facility] Start: 04-04-2023 End: 04-04-2023 Admission to same day surgery center Dr. Dheeraj Villa Work Phone: [facility]-Endoscopy Work Phone: Start: 04-04-2023 End: 04-04-[address] Dheeraj Villa Work Phone: [facility] Work Phone: Start: 03-08-2023 End: 03-08-[address] Dheeraj Villa Work Phone: [facility]-Laboratory, Specimen Work Phone: Start: 03-03-2023 End: 03-03-[address] Dheeraj Villa Work Phone: [facility] Work Phone: Start: 03-03-2023 End: 03-03-[address] Dheeraj Villa Work Phone: [facility]-Laboratory Work Phone: Start: 02-05-2023 End: 02-05-[address] Dheeraj Villa Work Phone: [facility] Work Phone: Start: 10-15-2022 End: 10-15-[address] Dheeraj Villa Work Phone: [facility] Work Phone: Start: 10-15-2022 End: 10-15-[address] Dheeraj Villa Work Phone: [facility] Ultrasound Start: 10-10-2022 End: 10-10-[address] Dheeraj Villa Work Phone: [facility] Work Phone: Start: 10-10-2022 End: 10-10-[address] Dheeraj Villa Work Phone: [facility]-Outpatient Breast Imaging Start: 09-26-2022 End: 09-26-[address] Dheeraj Villa Work Phone: [facility] Start: 03-20-2022 End: 03-20-2022 ambulatory [facility] Work Phone: Start: 03-20-2022 End: 03-20-2022 Patient encounter procedure [facility]-Laboratory, Gia Domínguez Start: 03-13-2022 End: 03-13-2022 ambulatory [facility] Work Phone: Start: 03-13-2022 End: 03-13-2022 Patient encounter procedure [facility]-Laboratory, Specimen Procedures Date Procedure Procedure Detail Performing Clinician Start: 03-31-[address] Gilberto Villa MD Work Phone: Start: 10-04-2024 Open reduction with internal fixation Dr. Maxime Villa MD Work Phone: Start: 10-04-[address] Maxime Villa MD Work Phone: Start: 10-04-2024 X-ray of ankle, two views Dr. Dheeraj Villa MD Work Phone: Start: 09-29-2024 Total iron binding capacity measurement Dr. Maxime Villa MD Work Phone: Start: 09-29-2024 Vitamin D, 25-hydroxy measurement Dr. Aneudy Villa MD Work Phone: Comment on above: Vitamin D StatusDeficiency: <20 ng/mL (5 0nmol/L)Insufficiency: 20-30 ng/mL (50-75 nmol/L)Sufficiency: 30-100 ng/mL (75-250 nmol/L)Toxicity: >100 ng/mL (>250 nmol/L) Start: 09-29-2024 MRI of lower extremity Dr. Maxime Villa MD Work Phone: Start: 09-26-2024 Plain X-ray of tibia and fibula Dr. Michael Villa MD Work Phone: Start: 09-26-2024 X-ray of foot, three or more views Dr. Jim Villa MD Work Phone: Start: 09-26-2024 X-ray of ankle, three or more views Dr. Maxime Villa MD Work Phone: Start: 08-05-2024 Ultrasound elastography of liver Dr. Romain Villa MD Work Phone: Start: 08-27-2023 Radionuclide gastric emptying study Dr. Dheeraj Villa Work Phone: Start: 08-12-[address] Gilberto Villa Work Phone: Start: 08-12-[address] Dheeraj Villa Work Phone: Start: 04-04-[address] Dheeraj Villa Work Phone: Start: 03-08-2023 Giardia Antigen (EVANGELINA) Dr. Dheeraj Villa Work Phone: Start: 03-08-[address] [place] [address] parasites identification [address] Michael Villa Work Phone: Start: 10-15-[address] Dheeraj Villa Work Phone: Start: 10-10-[address] Dheeraj Villa Work Phone: Bacteria identified in Urine by Culture Urine culture Plan of Treatment Date Care Activity Detail Author Start: 03-31-2025 Patient discharge [facility] Start: 10-04-2024 Anes open proc bones lower leg/ankle/foot nos ANESTH LOWER LEG BONE SURG [facility] Start: 10-04-2024 Injection aa&/strd sciatic nerve NJX AA&/STRD SCIATIC NRV IMG [facility] Start: 10-04-2024 Open treatment bimalleolar ankle fracture TREATMENT OF ANKLE FRACTURE [facility] Start: 10-04-2024 Application of ice collar, cap or bag [facility] Start: 10-04-2024 Elevation of affected extremity [facility] Start: 10-04-2024 Patient discharge [facility] Start: 10-04-2024 Catheterization of vein [facility] Start: 10-04-2024 Following clinical pathway protocol [facility] Start: 10-04-2024 Procedure discontinued [facility] Start: 10-04-2024 Taking patient vital signs [facility] Start: 10-04-2024 Vital signs measurements [facility] Start: 10-04-2024 End: 10-04-2024 [facility] Start: 10-04-2024 X-ray of ankle, two views Ankle 2 Views [facility] Start: 10-04-2024 XR Ankle 2 Views [facility] Start: 10-04-2024 Medication education [facility] Start: 09-26-2024 Cltx trimalleolar ankle fx w/manipulation TREATMENT OF ANKLE FRACTURE [facility] Start: 08-04-2023 Celiac disease screen [facility] Start: 08-04-2023 IgG subclass panel [Mass/volume] - Serum [facility] Start: 08-04-2023 Serum immunofixation [facility] Start: 08-04-2023 [facility] Start: 04-04-2023 Patient discharge [facility] Start: 03-03-2023 Celiac disease screen [facility] Start: 03-03-2023 Gastrin [Mass/volume] in Serum or Plasma [facility] Start: 03-03-2023 General foods mix RAST test [facility] Start: 03-03-2023 Immunoglobulin measurement [facility] Start: 03-03-2023 Procedure [facility] Start: 03-03-2023 Serum immunofixation [facility] Start: 03-03-2023 [facility] Start: 09-26-2022 Patient referral [facility] Work Phone: Albumin [Moles/volum e] in Serum or Plasma [facility] Albumin/Globulin ratio [facility] Antibody to lupus [place] protein measurement [facility] Antibody to SS-A measurement [facility] Beef IgE Ab [Units/v olume] in Serum [facility] Beef IgE Ab [Units/v olume] in Serum [facility] C reactive protein [Mass/volume] in Serum or Plasma [facility] CBC W Auto Different ial panel - Blood [facility] Centromere protein B Ab [Units/volume] in Serum [facility] Chocolate IgE Ab [Units/volume] in Serum [facility] Chocolate IgE Ab [Units/volume] in Serum [facility] Chromatin Ab [Units/ volume] in Serum or Plasma [facility] Clam IgE Ab [Units/v olume] in Serum [facility] Clostridioides diffi cile DNA [Presence] in Unspecified specimen by ELIESER with probe detection [facility] Codfish IgE Ab [Units/volume] in Serum [facility] Codfish IgE Ab [Units/volume] in Serum [facility] Comprehensive metabo lic 2000 panel - Serum or Plasma [facility] [place] IgE Ab [Units/v olume] in Serum [facility] [place] IgE Ab [Units/v olume] in Serum [facility] Cow milk IgE Ab [Units/volume] in Serum [facility] Cow milk IgE Ab [Units/volume] in Serum [facility] DNA double strand Ab [Units/volume] in Serum [facility] Egg white IgE Ab [Units/volume] in Serum [facility] Elastase, pancreatic (el-1), fecal; quantitative [facility] Electrophoresis: [id number] [facility] Electrophoresis: jenny ma globulin [facility] Erythrocyte sediment ation rate [facility] Fat [Presence] in Stool [facility] Fish RAST [facility] Gastrointestinal pat hogens panel - Stool by ELIESER with probe detection [facility] Globulin measurement [facility] IgA [Mass/volume] in Serum or Plasma [facility] IgE [Units/volume] i n Serum or Plasma [facility] IgG [Mass/volume] in Serum or Plasma [facility] IgG [Mass/volume] in Serum or Plasma [facility] IgM [Mass/volume] in Serum or Plasma [facility] Gloria-1 extractable nuc lear Ab [Units/volume] in Serum [facility] Lactoferrin [Presenc e] in Stool by Immunoassay [facility] Lipid 1996 panel - S susan or Plasma [facility] Measurement of immunoglobulin A in serum specimen [facility] Measurement of immunoglobulin A in serum specimen [facility] Neutrophil cytoplasm ic Ab.classic [Units/volume] in Serum [facility] P-ANCA measurement [facility] Patient Education ED Ankle Fracture [facility] Work Phone: Patient referral [facility] Work Phone: Peanut IgE Ab [Units /volume] in Serum [facility] Peanut IgE Ab [Units /volume] in Serum [facility] Pork IgE Ab [Units/v olume] in Serum [facility] Pork IgE Ab [Units/v olume] in Serum [facility] Protein electrophore sis panel - Serum or Plasma [facility] Protein measurement [facility] Radionuclide gastric emptying study [facility] [place] IgE Ab [Units /volume] in Serum [facility] Scallop RAST [facility] SCL-70 extractable n uclear Ab [Units/volume] in Serum by Immunoassay [facility] Serum protein electrophoresis [facility] Sesame seed RAST [facility] Shrimp IgE Ab [Units /volume] in Serum [facility] Shrimp IgE Ab [Units /volume] in Serum [facility] Arias extractable nu clear Ab [Presence] in Serum [facility] Soybean IgE Ab [Units/volume] in Serum [facility] Soybean IgE Ab [Units/volume] in Serum [facility] Tissue transglutamin ase IgA Ab [Units/volume] in Serum [facility] Triglycerides measurement [facility] Tuna IgE Ab [Units/v olume] in Serum [facility] Ultrasound elastography [facility] [place] RAST [facility] Wheat IgE Ab [Units/ volume] in Serum [facility] Wheat IgE Ab [Units/ volume] in Serum [facility] Whole Egg IgE Ab [Units/volume] in Serum [facility] Whole Egg IgE Ab [Units/volume] in Serum [facility] Payers Date Payer Category Payer Unknown [id number] [facility] [id number] 2024 Self-pay [id number] 2017 Unknown [id number] 1980 Unknown [id number] 2.16. [id number] Unknown [id number] 2.16.8 [id number] Unknown [id number] 2.16.8 [id number] Unknown [id number] 2.16.8 [id number] Unknown [id number] 2.16.8 [id number] Unknown [id number] 2.16.8 [id number] Unknown [id number] 2.16.8 [id number] Unknown [id number] 2.16.8 [id number] Unknown [id number] 2.16.8 [id number] Unknown [id number] 2.16.8 [id number] Unknown [id number] 2.16.8 [id number] Unknown [id number] 2.16.8 [id number] Unknown [id number] 2.16.8 [id number] Social History Date Type Detail Facility Tobacco smoking status NHIS Unknown if ever smoked [facility] Work Phone: Start: 1980 Sex Assigned At Female [facility] Start: 09-26-2022 End: 07-31-2023 Tobacco smoking status NHIS Unknown if ever smoked [facility] Start: 09-26-2024 Tobacco smoking status NHIS Current some day smoker [facility] Start: 09-26-2024 End: 10-04-2024 Sex Female (finding) [facility] Start: 10-01-2024 End: 03-29-2025 Tobacco smoking status NHIS Ex-smoker (finding) [facility] Not [facility] NEGATED: Highlighted row [facility] NEGATED: Highlighted row Not [facility] Medical Equipment Procedure Code Equipment Code Equipment Origin al Text Equipment Identifier Dates ORIF, ankle 3.0 CORTICAL SCREW FDA Start : 10-04-2024 ORIF, ankle 4.0MM QUICK FIX CANNULATED SCREW FDA Start: 10-04-2024 ORIF, ankle LOCKING DISTAL F IBULA PLATE, RIGHT FDA Start: 10-04-2024 ORIF, ankle 3.0 LOCKING COMPRESSION SCREW FDA Start: 10-04-2024 ORIF, ankle 3.0 LOCKING COMPRESSION SCREW FDA Start: 10-04-2024 ORIF, ankle 3.0 LOCKING COMPRESSION SCREW FDA Start: 10-04-2024 ORIF, ankle 3.0 LOCKING COMPRTESSION SCREW FDA Start: 10-04-2024 ORIF, ankle 3.5 CORTICAL SCREW FDA Start : 10-04-2024 ORIF, ankle 3.5 LOCKING COMPRESSION SCREW FDA Start: 10-04-2024 ORIF, ankle 3.5 LOCKING COMPRESSION SCREW FDA Start: 10-04-2024 ORIF, ankle 4.0MM QUICK FIX CANNULATED SCREW FDA Start: 10-04-2024 ORIF, ankle 3.0 CORTICAL SCREW FDA Start : 10-04-2024 ORIF, ankle 4.0MM QUICK FIX CANNULATED SCREW FDA Start: 10-04-2024 ORIF, ankle LOCKING DISTAL F IBULA PLATE, RIGHT FDA Start: 10-04-2024 ORIF, ankle 3.0 LOCKING COMPRESSION SCREW FDA Start: 10-04-2024 ORIF, ankle 3.0 LOCKING COMPRESSION SCREW FDA Start: 10-04-2024 ORIF, ankle 3.0 LOCKING COMPRESSION SCREW FDA Start: 10-04-2024 ORIF, ankle 3.0 LOCKING COMPRTESSION SCREW FDA Start: 10-04-2024 ORIF, ankle 3.5 CORTICAL SCREW FDA Start : 10-04-2024 ORIF, ankle 3.5 LOCKING COMPRESSION SCREW FDA Start: 10-04-2024 ORIF, ankle 3.5 LOCKING COMPRESSION SCREW FDA Start: 10-04-2024 ORIF, ankle 4.0MM QUICK FIX CANNULATED SCREW FDA Start: 10-04-2024 ORIF, ankle 3.0 CORTICAL SCREW FDA Start : 10-04-2024 ORIF, ankle 4.0MM QUICK FIX CANNULATED SCREW FDA Start: 10-04-2024 ORIF, ankle LOCKING DISTAL F IBULA PLATE, RIGHT FDA Start: 10-04-2024 ORIF, ankle 3.0 LOCKING COMPRESSION SCREW FDA Start: 10-04-2024 ORIF, ankle 3.0 LOCKING COMPRESSION SCREW FDA Start: 10-04-2024 ORIF, ankle 3.0 LOCKING COMPRESSION SCREW FDA Start: 10-04-2024 ORIF, ankle 3.0 LOCKING COMPRTESSION SCREW FDA Start: 10-04-2024 ORIF, ankle 3.5 CORTICAL SCREW FDA Start : 10-04-2024 ORIF, ankle 3.5 LOCKING COMPRESSION SCREW FDA Start: 10-04-2024 ORIF, ankle 3.5 LOCKING COMPRESSION SCREW FDA Start: 10-04-2024 ORIF, ankle 4.0MM QUICK FIX CANNULATED SCREW FDA Start: 10-04-2024 Goals Date Patient Goal Desired Activity /State Mental Status Date Assessment Result Facility 03-31-2025 Cognitive function Voice/Name [facility] Work Phone: 10-04-2024 Cognitive function Voice/Name [facility] Work Phone: 09-26-2024 Cognitive function Awake;Alert;Appropriat e [facility] Work Phone: 04-04-2023 Cognitive function Level Of Cons ciousness Follows Commands;Drowsy [facility] Work Phone: 04-04-2023 Cognitive function Voice/Name [facility] Work Phone: Clinical Notes 09-26-2022 to 03-31-2025 Note Date & Type Note Facility 03-31-2025 Procedure note [facility] 03-31-2025 Procedure note [facility] 03-31-2025 Consult note [facility] 03-31-2025 History and physi kvng note [facility] 03-31-2025 Note [facility] Medical Records Department [address] [place] [address] History Physical Exam 03/31/25 1003 MR#: [id number] Acct: [id number] Name: MERLE HOFF Rep #: [id number] : 1980 44 From: Porfirio Huertas DO PCP: Dr. Maxime Villa MD Status:[facility] Location: [address] HPI - General General Date of Admission: 03/31/25 Date of Service: 03/31/25 HPI Narrative MERLE HOFF, is a 44 F who presents [Chief Complaint: Reflux Details: MERLE HOFF, is a 44 F who presents to the office today for follow-up. OV 0215.24 Recently decreased pantoprazole 40 mg once daily as directed. Alternating constipation, diarrhea, and abdominal cramping. Nearly constant bloating. After having a bowel movement will have mucous leaking from rectum for rest of the day. Hemorrhoids also continue. Heartburn after certain foods, times of increased stress, and occasionally during the night. GET 3.13.24 normal 48.06 minutes abd US 4.30.24 There is no demonstrated mass lesion. Median liver stiffness measured 4.9 kPa. OV 8.8.24 pt reports continued symptoms of nausea, diarrhea, abd pain, gas/bloating, heartburn, and difficulty swallowing her pills. OV 11.8.24 pt reports that her symptoms have improved from previous visit. Continues to have difficulty swallowing her pills. Has occasional abdominal discomfort from bloating. OV 2.7.25 pt reports alternating bowel movements, but states that it is improved from before. pt reports that pantoprazole is helpful for her HB. US and elastography 2.20.25 hepatic measurement 17.3cm with fatty infiltration, stiffness measures 4.9kPa. OV 8.6.25 pt reports that she has been feeling well, ongoing symptoms, but "nothing new". Continues with Pantoprazole. States it may be time for another EGD, last was in . OV 03/23/25 patient reports continued reflux symptoms every other day. She is currently taking pantoprazole 40 mg daily. In the past she is taking this twice a day. Symptoms seem to be worse in nighttime and will often wake up with reflux. Patient also having a hard time swallowing her pills which is unlike her. She denies any problems swallowing foods but will choke on liquids on occasion. She denies nausea or vomiting. ] [facility] Medical History (Updated 03/31/25 @ 10:[address] Porfirio Friend, DO) History of steroid therapy Arthritis Difficulty swallowing History of IBS Heartburn Sleep apnea Fatty liver Back pain Ochoa esophagus History of hiatal hernia History of pain when walking Wears contact lenses Wears glasses Alcohol use Anemia Gastric reflux Former smoker CPAP (continuous positive airway pressure) dependence Shortness of breath on exertion History of echocardiogram IBS (irritable bowel syndrome) Hypertension Depression Anxiety Home Medications ???Medication ???Instructions ???Recorded ???Last Taken ???Type alprazolam 0.5 mg tablet (Xanax) 0.5 mg PO QHS PRN anxiety 09/26/22 03/30/25 History 0.25 mg amlodipine 5 mg tablet 5 mg PO DAILY 09/26/22 03/30/25 Hi story bupropion HCl 150 mg tablet,12 hr 150 mg PO DAILY 09/26/22 03/30/25 History sustained-release (Wellbutrin SR) lisinopril 10 mg tablet 10 mg PO DAILY 09/26/22 03/30/25 H istory sertraline 100 mg tablet (Zoloft) 200 mg PO QHS 09/26/22 03/30/25 H istory trazodone 150 mg tablet 150 mg PO QHS 09/26/22 03/30/25 Hi story bupropion HCl 300 mg 24 hr tablet, 300 mg PO DAILY 10/01/24 5 History extended release pantoprazole 40 mg tablet,delayed 40 mg PO QHS #30 tabs 02/07/25 Rx release (Protonix) cholecalciferol (vitamin D3) 10 10 mcg PO QDAY 03/23/25 03/30/25 H istory mcg (400 unit) capsule multivitamin 1 tab PO QAM 03/23/25 03/30/25 His tory vitamin E 180 mg/2 mL oral drops 180 mg PO DAILY 03/23/25 03/30/25 History (Purevita Vitamin E) Allergy/AdvReac Type Severity Reaction Status Date / Time hydrocodone (From Vicodin) Allergy Mild Nausea/Vom/ Verified 03/31/25 09:03 Diarrhea Family History Aunt Colon cancer Cancer lung Grandfather Heart disease Surgical History History of ankle surgery Hx of colonoscopy S/P wisdom tooth extraction Social History household members: spouse and children housing: house number of children: 3 current occupational status: employed current occupation: [employer] Smoking Status: Former smoker alcohol intake: current alcohol intake frequency: a few times a month substance use type: does not use seatbelt use: always do you feel safe at home: Yes 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 [facility] 03-31-2025 Consult note [facility] 03-05-2025 Note HNO ID: [id number] Author: SAHARA MARRERO PA Service: ? Author Type: Physician Interior Block Wirer Type: Progress Notes Filed: 03/05/2025 14:21 Note Text: [facility] Tyrell Hoff is a 44 year old female. Patient presents with: Cough: X 2 weeks HPI The patient is a 44-year-old female presenting with a persistent cough. Cough: - Persistent cough x2 weeks. - Cough is intermittent, with periods of perceived improvement followed by recurrence. - Cough is more pronounced in the late afternoon to evening. - Sometimes productive, sometimes dry with a "hoarse" sound. - Associated rhinorrhea; denies congestion. - Denies fevers. - Occasional smoker. - Son has similar symptoms. PAST MEDICAL HISTORY Diagnosis Date Rheumatoid arthritis(714.0) 02/28/2010 No past surgical history on file. ALLERGIES Vicodin [Hydrocodone-Acetaminophen] MEDICATIONS modafinil (PROVIGIL) 100 mg tablet Take 100 mg by mouth once daily. fluticasone (FLONASE) 50 mcg/actuation nasal spray Use 2 Sprays in each nostril once daily. Rinse mouth after use. sertraline HCl (ZOLOFT ORAL) Take by mouth. amLODIPine (NORVASC) 5 mg tablet Take 5 mg by mouth once daily. buPROPion XL (WELLBUTRIN XL) 300 mg 24 hr tablet Take 300 mg by mouth once daily. cholecalciferol, Vitamin D3, (VITAMIN D3) 1,250 mcg (50,000 unit) cap capsule Take 50,000 Units by mouth one time a week. lisinopril (ZESTRIL, PRINIVIL) 10 mg tablet Take 10 mg by mouth once daily. sertraline (ZOLOFT) 100 mg tablet TAKE 1 AND 1/2 (ONE AND ONE-HALF) TABLETS BY MOUTH EVERY DAY cetirizine-pseudoephedrine (ZYRTEC-D) 5-120 mg per tablet Take 1 tablet by mouth twice daily as needed. paroxetine hcl(PAXIL 40 MG TAB) Take one(1) tablet daily. alprazolam(XANAX 0.5 MG TAB) Take one(1) tablet two(2) times daily. TRAZODONE 100 MG TAB Take one(1) tablet at bedtime or as necessary predniSONE (DELTASONE) 20 mg tablet Take 2 tablets by mouth once daily for 5 days. albuterol HFA (PROVENTIL HFA, VENTOLIN HFA) 90 mcg/actuation inhaler Inhale 2 puffs as instructed every 4 hours as needed for wheezing/shortness of breath. benzonatate (TESSALON PERLE) 100 mg capsule Take 1 capsule by mouth three times a day as needed. FAMILY HISTORY Problem Relation Age of Onset Stroke Unknown Heart Unknown attack/angioplasty Hypertension Unknown Diabetes Unknown Arthritis Unknown Cancer Unknown SOCIAL HISTORY[1] Review of Systems Constitutional: (-) fever Ears/Nose/Mouth/Throat: (+) rhinorrhea, (+) nasal drainage, (-) nasal congestion, (-) sinus pressure Respiratory: (+) cough, (+) sputum production Objective BP 140/84 Pulse 90 Temp 36.9 ?C (98.4 ?F) Resp 18 Wt 74.8 kg (165 lb) LMP 02/21/2025 (Approximate) SpO2 97% Physical Exam General: Not in acute distress, normal appearance, well-developed, not toxic-appearing HEENT - Eyes: Conjunctivae normal - Ears: Right ear: Tympanic membrane normal, ear canal normal; Left ear: Tympanic membrane normal, ear canal normal - Nose/Sinuses: Nose normal - Oropharynx: Mucous membranes moist, oropharynx clear without erythema or exudate, uvula midline Cardiovascular - Rate/Rhythm: Normal rate and regular rhythm - Heart Sounds: Normal heart sounds Pulmonary - Lung Sounds: Mild wheezing - Respiratory Effort: Pulmonary effort normal Neurologic - Mental Status: Alert Skin: Skin warm and dry Lymphatic - Cervical: No cervical adenopathy { 1. Acute cough (R05.1) - Cough for 2 weeks with intermittent improvement and recurrence; occasional sputum production; mild wheezing on exam. - Chest X-ray ordered to rule out pneumonia; results normal, no evidence of pneumonia. - Start prednisone to reduce airway inflammation. - Start Tessalon Perles for cough suppression. - Start albuterol inhaler for wheezing. - Educated patient that viral coughs can last 4-6 weeks; antibiotics not indicated unless pneumonia is present. - Discussed that viral etiology is likely - Advised patient to have her son evaluated if symptoms persist or worsen. - Follow-up as needed for persistent or worsening symptoms. Recording using AWAK software for draft documentation of the visit was discussed with the patient/authorized patient care representative; all questions welcomed and answered. Patient/authorized patient care representative agreed to proceed Diagnosis and treatment plan were discussed and questions were answered to the patient's satisfaction. Pt acknowledged understanding of concepts and follow up plan. Specific signs and symptoms that would indicate the need for higher level of care were discussed in detail warranting prompt ER evaluation. Differential Diagnoses - Viral bronchitis/viral cough is more likely for the following reason(s): suggested by HANDP - Pneumonia is less likely for the following reason(s): no evidence on imaging Disposition The patient was discharged. Procedures [1] Soci (more content not included)... [facility] 03-05-2025 Note HNO ID: [id number] Author: JUDE BAI Tech Service: ? Author Type: Cold Roll Catcher Type: Progress Notes Filed: 03/05/2025 13:30 Note Text: Radiology Service Progress Note PATIENT NAME: Merle Hoff DATE OF SERVICE: March 05, 2025 TIME: 1:30 PM PATIENT IDENTITY VERIFICATION COMPLETED USING TWO (2) IDENTIFIERS: Name and Date of confirmed by patient verbally. FALL SCREENING: Has the patient had 2 falls in the last year or 1 fall with injury or currently using an Ambulatory Assistive Device (Walker, Cane, Wheelchair, Crutches, etc.)? No PATIENT GENDER DATA: Assigned female at . status: : No status: NO. PATIENT RELEVANT IMPLANT DATA REVIEWED: Yes PATIENT PRESENTS WITH AN IMPLANTABLE OR ATTACHED WALNUT DEHYDRATOR OPERATOR: No RADIOLOGY DEPARTMENT: General X-ray: Exam(s) Completed: Chest X-Ray PERIPHERAL IV DATA: Not applicable SIGNED BY: Gallo Cavazos March 05, 2025 1:30 PM [facility] 01-19-2025 Evaluation note Diagnosis Onset Date Resolution Barretts esophagus acute January 19, 2025 3:19pm Fatty liver acute January 19, 2 025 3:19pm Gastroparesis acute January 19, 2025 3:19pm Hiatal hernia acute January 19, 2025 3:19pm Nausea acute January 19 3:19pm IBS (irritable bowel syndrome) chronic January 19, 2025 3:19pm [facility] Work Phone: 1(101) 729-554808-06-2025 Evaluation note* Diagnosis Onset Date Resolution Status Admit Date Barretts esophagus acute January 19, 2025 3:19pm Fatty liver acute January 19, 2 025 3:19pm Gastroparesis acute January 19, 2025 3:19pm Hiatal hernia acute January 19, 2025 3:19pm Nausea acute January 19 3:19pm IBS (irritable bowel syndrome) chron ic January 19, 2025 3:19pm Hiatal hernia acute March 2:50pm Nausea acute March 23, 2 025 2:50pm IBS (irritable bowel syndrome) chron ic March 23, 2025 2:50pm Barretts esophagus acute Octobe r 2024 8:34am Difficulty swallowing acute Mar thony 2024 8:34am Hiatal hernia acute March 8:34am [facility] Work Phone: 1(396) 654-500004-21-2025 Consult note [facility] Medical Records Department [address] [place] [id number] Pre-Anesthesia Evaluation 10/04/24 0656 MR#: [id number] Acct: [id number] Name: MERLE HOFF Rep #:[id number] : 1980 44 From: Sacha Mckenna MD PCP: Dr. Maxime Villa MD Status :[facility] Race: C Location: [facility] ASA Classification* ASA Classification ASA Classification: 2 Assessment & Plan Anesthesia* Anesthesia Assessment Anesthesia Assessment: Discussed sedation and/or anesthesia options, risks, benefits, and alternatives with patient/parents/legal guardian/POA. Questions invited. The patient/parents/legal guardian/POA seems to understand and agrees to proceedwith anesthesia plan. Reviewed the physical assessment, medical history, allergy history and patient home medications list prior to surgery/procedure/anesthetic and documented any changes. Performed airway and anesthesia risk assessments. Anesthesia Type Anesthesia Type: General and Block Anesthesia Focused Assessment* Temperature: 97.8 F Pulse Rate: 69 Blood Pressure: 121/73 Respiratory Rate: 16 Pulse Ox: 97 Airway Assessment Mouth opens: >3 cm Mallampati Score: II Focused Labs Anesthesia Preop lab: 2 CBC WBC 4.7 K/mm3 (4.4-11.0) 09/29/24 08:08 09/29/24 RBC 3.97 M/mm3 (4.2-5.4) L 09/29/24 08:08 09/29/24 Hgb 11.3 g/dL (12.0-15.0) L 09/29/24 08:08 5 Hct 34.3 % (37-47) L 09/29/24 08:08 09/29/24 Plt Count 169 K/mm3 (150-450) 09/29/24 08:08 09/29/24 CHEMISTRY Potassium 3.8 mmol/L (3.3-5.1) 09/29/24 08:08 09/29/24 Sodium 137 mmol/L (133-145) 09/29/24 08:08 09/29/24 Magnesium 2.3 mg/dL (1.6-2.6) 07/03/18 17:10 07/03/18 BUN 12 mg/dL (4-19) 09/29/24 08:08 09/29/24 Creatinine 0.89 mg/dL (0.70-1.20) 09/29/24 08:08 09/29/24 Glucose 87 mg/dL (70-99) 09/29/24 08:08 09/29/24 TSH 0.70 uIU/mL (0.358-3.74) 03/20/22 08:34 COAG Urine Test Negative Negative 10/04/24 06:05 10/04/24 Pre-Assessment Diagnosis/Proposed Procedure Planned Operative Procedure(s): RIGHT ANKLE ORIF Anesthesia History 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 When Was Last Pacemaker Check QUESTION #4 FULL TEXT: You/Your Family Experience fever (hyperthermia) with Anesthesia Last Oral Intake Last Oral intake: Last Oral Intake NPO since 00:00 10/04/24 06:20 Meds taken in AM with sips of No 10/04/24 06:20 water? 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 helper Female Yes 10/01/24 08:53 HX of Motion Sickness No 10/01/24 08:53 HX of N/V After Surgery No 10/01/24 08:53 Non-Smoker Yes 10/01/24 08:53 Duration of Surgery greater Yes 10/01/24 08:53 than 60 minutes Number of Risk Factors 3 10/01/24 08:53 PONV Score Moderate Risk 10/01/24 08:53 Height & Weight Height & Weight: Anesthesia: Height & Weight Height 5 ft 2 in 10/04/24 06:20 Weight: 74 kg 10/04/24 06:20 Body Mass Index (BMI) 29.8 10/04/24 06:20 Respiratory Assessment Respiratory Assessment - stitch bonder machine operator helper: Respiratory Tract Infection Hx - stitch bonder machine operator helper Hx Respiratory Tract Infection No 10/01/24 08:53 STOP Sleep Apnea STOP Sleep Apnea - stitch bonder machine operator helper: STOP Sleep Apnea - stitch bonder machine operator helper Hx Hypertension Yes: CONTROLLED WITH MEDS 10/01/24 08:53 Hx Sleep Apnea Yes 10/01/24 08:53 CPAP Yes: NONCOMPLIANT 10/01/24 08:53 BIPAP No 10/01/24 08:53 Do you snore loudly (louder than talking or can be heard Do you often feel tired/ fatigued/ sleepy during daytime? Has anyone observed you stop breathing during sleep? STOP Results Positive 10/01/24 08:53 QUESTION #5 FULL TEXT : Do you snore loudly (louder than talking or can be heard through closeddoors)? 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 machine operator helper Tobacco Use Smoking Status Former smoker 10/01/24 08:53 Hx Tobacco Use No 10/01/24 08:53 Years Smoking Packs Smoked per Day Smoking Cessation Date was Yes - quit smoking within 15 10/01/24 08:53 within the last 15 years years Hx Smoking Cessation Date 06/16/22 10/01/24 08:53 Hx Smoking Cessation No 10/01/24 08:53 Counseling Hematologic Medial History Hematologic Hx - stitch bonder machine operator helper: Hematologic Medical Hx - technician automated equipment Hx of Blood Transfusion No 10/01/24 08:53 Hx of Transfusion in last 3 No 10/01/24 08:53 Months Date of Last Transfusion (if within last 3 months) Ever experience any problems No 10/01/24 08:53 with transfusion(s)? Specify any problems Hx of Preganancy in last 3 No 10/01/24 08:53 Months Nurse Filling Out Transfusion DSCHRIBER 10/01/24 08:53 & Questions: Date: 10/01/24 10/01/24 08:53 Time: 08:55 10/01/24 08:53 Patient unable to answer at this time (ie. 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 bonder machine operator helper: /Reproductive Hx- stitch bonder machine operator helper Hx Now No 10/01/24 08:53 Gestational Age (in weeks): EDC: Hx Hx Para Hx Section SAB No 10/01/24 08:53 Active Medications Active Medications: Current Medications Generic Name Dose Route Start Last Admin Trade Name Freq PRN Reason Stop Dose Admin Cefazolin Sodium 2 gm/ N/A 20 mls @ 400 mls/hr 10/04/24 07:30 IV 10/04/24 07:32 INTRAOP ONE PFSH Medical History Fatty liver Back pain Ochoa esophagus History of hiatal hernia History of pain when walking Wears contact lenses Wears glasses Alcohol use Anemia Gastric reflux Former smoker CPAP (continuous positive airway pressure) dependence Shortness of breath on exertion History of echocardiogram IBS (irritable bowel syndrome) Hypertension Depression Anxiety Home Medications ?Medication ?Instructions ?Recorded ?Last Taken ?Type alprazolam 0.5 mg tablet (Xanax) 0.5 mg PO QHS PRN anx iety 09/26/22 Unknown History amlodipine 5 mg tablet 5 mg PO DAILY 09/26/2204/04 History bupropion HCl 150 mg tablet,12 hr 150 mg PO DAILY 09/14 09/05 Unknown History sustained-release (Wellbutrin SR) lisinopril 10 mg tablet 10 mg PO DAILY 09/26/2203/17 History sertraline 100 mg tablet (Zoloft) 200 mg PO QHS Unknown History trazodone 150 mg tablet 150 mg PO QHS 09/26/22 Unkno wn History pantoprazole 40 mg tablet,delayed 40 mg PO QHS #30 tab s 09/21/24 Unknown Rx release (Protonix) oxycodone-acetaminophen 5 mg-325 1 tab PO Q6H PRN PRN Pain 3 days 09/26/24 Unknown Rx mg tablet #12 TABLETS bupropion HCl 300 mg 24 hr tablet, 300 mg PO DAILY Unknown History extended release Allergy/AdvReac Type Severity Reaction Status Date / Time acetaminophen (From Vicodin) Allergy Mild Nausea/Vom/ Verified 10/01/24 08:48 Diarrhea hydrocodone (From Vicodin) Allergy Mild Nausea/Vom/ Verified 10/01/24 08:48 Diarrhea Family History Aunt Colon cancer Cancer lung Grandfather Heart disease Surgical History Hx of colonoscopy S/P wisdom tooth extraction Social History household members: spouse and children housing: house number of children: 3 current occupational status: employed current occupation: [employer] Smoking Status: Former smoker alcohol intake: current alcohol intake frequency: a few times a month substance use type: does not use seatbelt use: always do you feel safe at home: Yes 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 10/04/24 0656 > Date _ [facility]: Date CC: ~ Signed [facility]04[facility]21-2025 Consult note [facility] Medical Records Department [address] [place] [address] Anesthesia Postop Eval II 10/04/24 1000 MR#: [id number] Acct: [id number] Name: MERLE HOFF Rep #:[id number] : 1980 44 From: Sacha Mckenna MD PCP: Dr. Maxime Villa MD Status :REG [facility] Race: C Location: [place] [address] Anesthesia Postop Eval I Sum Postop Eval Completion status Anesthesia document: Postop Eval 1 completed: Yes Anesthesia Postop Eval I Summary Anesthesia Postop Eval I Summary: Anesthesia Postop Eval I: Assessment Summary Airway patent Yes 10/04/24 09:51 SAFETY SCIENTIST.DBAK Spontaneous unlabored Yes 10/04/24 09:51 SAFETY SCIENTIST.DBAK respirations Mental status Awake,Calm 10/04/24 09:51 SAFETY SCIENTIST.DBAK nausea No 10/04/24 09:51 SAFETY SCIENTIST.DBAK Vomiting No 10/04/24 09:51 SAFETY SCIENTIST.DBAK Anesthesia Postop Eval I: Fluid Summary Crystalloid volume administer 1,700 10/04/24 09:51 SAFETY SCIENTIST.DBAK (ml) Colloids volume administered ( ml) Blood Product volume administered (ml) Total IV fluid infused 1,700 10/04/24 09:51 SAFETY SCIENTIST.DBAK Anesthesia Postop Eval I: Summary Notes Anesthesia Complication No 10/04/24 09:51 SAFETY SCIENTIST.DBAK Anesthesia Complication Comment: Post-operative progress note Pt comfortable, 0/ 10/04/24 09:51 SAFETY SCIENTIST.DBAK 10 pain in R ankle , Post op Eval 1 completed. Anesthesia: Postop Eval II Evaluation Mental status: Awake Pain Level: 0 nausea: No Vomiting: No 10/04/24 1000 > Date _ Sacha Mckenna MD Cosigner Signature: CC: ~ Signed [facility]04-21-2025 Consult note [facility] Medical Records Department [address] [place] [address] Anesthesia Postop Eval I 10/04/24 0948 MR#: [id number] Acct: [id number] Name: MERLE HOFF Rep #:[id number] : 1980 44 From: Fabrice Marrero SAFETY SCIENTIST PCP: Dr. Maxime Villa MD Status :REG [facility] Race: C Location: [place] [address] Anesthesia: Postop Eval I Current Vital Signs Temperature: 97.6 F Pulse Rate: 78 Blood Pressure: 111/72 Respiratory Rate: 18 Pulse Ox: 94 Oxygen Delivery Method: Nasal Cannula Oxygen Flow Rate (L/min): 2 Assessment Airway patent: Yes Spontaneous unlabored respirations: Yes Mental status: Awake and Calm nausea: No Vomiting: No Anesthesia Complication: No Fluid Hydration Crystalloid volume administer (ml): 1,700 Total IV fluid infused: 1,700 Progress Note Post-operative progress note: Pt comfortable, 0/10 pain in R ankle, Post op Eval1 completed. Anesthesia document: Postop Eval 1 completed: Yes 10/04/24 0951 II SAFETY SCIENTIST> Date _ Fabrice Cuevas II SAFETY SCIENTIST Cosigner Signature: CC: ~ Signed [facility]04-21-2025 Procedure note [facility] Medical Records Department [address] [place] [address] Operative Report 10/04/24 0931 MR#: [id number] Acct: [id number] Name: MERLE HOFF Rep #:[id number] : 1980 44 From: Liban choudhury DO PCP: Dr. Maxime Villa MD Status :REG [facility] Location: [place] [address] Operative Report (Standard) Operative Information Date of Procedure: 10/04/24 Pre-Operative Diagnosis: Right ankle bimalleolar fracture dislocation Post-Operative Diagnosis: Right ankle bimalleolar fracture dislocation Surgery/Procedure Performed: 1. Right ankle open reduction internal fixation medial and lateral malleoli 2. Fluoroscopic stress examination under anesthesia right ankle packing line worker: Yes Final Inspector Movement Assembly: Aura Gonzales Tasks completed by assistant winemaker: Opening & closing, Implanting device, Hemostasis: Electrocautery and Retracting Type of Anesthesia: General/Regional RN Documented Start/Stop Times: Operation Date: 10/04/24 07:30 Case Time Into Pre-Op 10/04/24 06:03 Anesthesia Start 10/04/24 07:34 Into Room 10/04/24 07:34 Out of Pre-Op 10/04/24 07:34 Procedure Start 10/04/24 07:59 Procedure Start Time: 07:59 Procedure Stop Time: 09:33 Select all DRAINS/GRAFTS/IMPLANTS that apply: Implanted device Implanted device details: Arthrex 4-hole titanium distal fibular locking plate with combination of cortical and locking screws, 50 mm x 4.0 mm partially-threaded cancellous screws x 2 Estimated Blood Loss: 25 cc Specimen collected: No Description of surgery: Patient was seen in preoperative holding area. They were identified by name, medical record number,date of . The operative extremity was marked with asurgical marker. We confirmed informed consent with the patient and all questions were answered to her satisfaction. In the preoperative holding area, a popliteal block and adductor canal was administered by the anesthesia staff. At time of the procedure, patient was brought to the operative suite and positioned supine on a standard operating table. All bony prominences were well- padded. General anesthesia was administered. After adequate anesthesia, a well- padded pneumatic tourniquet was applied to the right upper thigh. Alarge bump was placed in the patient's right hip. The right lower extremity was elevated on bath blankets for fluoroscopic imaging and access to the limb duringsurgery. We secured this with tape as well as the nonoperative extremity. We then performed a timeout with all parties in attendance and agree with the side,site, operation to be performed. No concerns were voiced and elected to proceed. 2g Ancef was administered prior to incision by the anesthesia staff. We then prepped and draped the operative extremity using a ChloraPrep. While stabilizing the ankle, the operative extremity was exsanguinated with an Esmarch bandage. Tourniquet was inflated to 250 mmHg, which remained inflated for approximately 75 minutes. Incision wasplanned over the lateral malleolus and distal fibular shaft centered over the level of the fracture. Skin was sharply incised with a 15 blade scalpel. Superficial bleeders were cauterized with Bovie cautery. We then bluntly dissected to the level of the fascia. Fascia was opened with Bovie cautery.We examined closely for the superficial peroneal nerve which was not encountered throughout surgery. We bluntly dissected down to the level of the periosteum. Hohmann retractors were placed after fracture was encountered as well as the fibula. Periosteum was elevated atthe level of the fracture appr oximately 2 to 3 mm. A [id number] reduction tenaculum was used to reapproximate the fracture site with excellent anatomic reduction. We then prepared for a lag screw for fixation. We first planned ourlag screw perpendicular to the fracture site anterior superior to posterior inferior. We overdrilled the near cortex with a 3.0 mm drill bit. We then withdrew the drill bit and drilled the far cortex with a 2.0 mm drill bit. We then measured and placed an appropriately sized lag by technique 3.0 mm corticalscrew with excellent compression across the fracture site. Reduction tenaculum was removed with excellent security at the fracture site. We then selected our plate on the back table. Fracture was slightly below the tibial plafond and I selected a distal fibular locking plate. Plate was provisionally held with K wires and then compressed the bone with cortical screws proximal and distal to the fracture site. The distal cluster was then filled with locking screws unit cortically. Shaft was filled with locking screws. Fracture was stable. I then turned my attention medially. Longitudinal incision was made sharply overlying the medial malleolus. Crossing veins were cauterized. Incarcerated periosteum was debrided. Fracture was debrided. Anatomic reduction was achieved with a pointed reduction clamp. 2 parallel K wires were placed throughthe tip of the medial malleolus. I measured for our cancellous screws. Near cortex was drilled. Screws were then placed and sequentially tightened there isexcellent compression at the fracture site. Wires were removed. Final fluoroscopic images were obtained. Cotton and external rotation stress test wasperformed and stable syndesmosis was demonstrated. Tourniquet was deflated. Hemostasis was achieved with unipolar cautery. Fascial layer was used to cover the plate laterally. Skin was then closed in layers in each incision. Dermis was reapproximated with buried 2-0 Vicryl suture and skin reapproximated in simple fashion with a 3-0 nylon suture in the medial incision and interrupted Allg?wer-Donati technique with a 3-0 nylon suture. Bulky sterile compression dressing was applied. Well-padded 3 sided AO type splint, short leg in maximal dorsiflexion was applied and molded. Patient was awakened from anesthesia. Shetolerated the procedure well without apparent complication. She was safely extubated the operative suite and transferred to her gurney and subsequently to PACU in stable condition. Need for skilled group fitness assistant department head: Aura Gonzales PA-C was critical to the outcome of thecase. During the course of the procedure the physician group fitness assistant department head played a vitalrole. Her intimate knowledge of my stepsin the procedure aided in safe and expedient completion of the procedure. The PA played a vital role in positioning particularly in obtaining the appropriate positioning. The PA was also vital in theretraction of soft tissues during the exposure and protecting vital structures. The PA was also vital and obtaining fracture reduction and assisting with hardware placement. She also played a vital role in closure and splint application with my direct supervision. Post Operative Plan: Weightbearing: Nonweightbearing operative extremity Antibiotics: 2 g Ancef x 1 dose preoperatively DVT Prophylaxis: Aspirin 81 mg twice daily for DVT prophylaxis x 6 weeks Perkins: None Dressing: Maintain splint, keep it clean dry and intact until follow-up X-Rays: 2 weeks postop in the office Pain Medication: Perco oxycodone prescription provided as an outpatient. Tylenol and Ibuprofen encouraged. Follow-up: 2 weeks post-operatively in the office Surgical Findings: Stable fixation bimalleolar ankle fracture. Syndesmosis stable after fixation of bony fragments. Complications Complications: No Admit VTE Documentation VTE Present on Admission: No VTE Mechan Device Prophylaxis: SCD's VTE Pharm Prophylaxis ordered?: Yes 10/04/24 0940 Cosigner Signature (if applicable): CC: Dr. Maxime Villa MD; Dr. Liban Satck, DO~ Signed [facility]04-21-2025 Consult note Author Sacha Mckenna [facility] Note Date/Time October 04, 2024 11: 39am [facility] Medical Records Department [address] [place] [address] Pre-Anesthesia Evaluation 10/04/24 0656 MR#: [id number] Acct: [id number] Name: MERLE HOFF Rep #:[id number] : 1980 44 From: Sacha Mckenna MD PCP: Dr. Maxime Villa MD Status :REG [facility] Y Race: C Location: [place] [address] ASA Classification* ASA Classification ASA Classification: 2 Assessment & Plan Anesthesia* Anesthesia Assessment Anesthesia Assessment: Discussed sedation and/or anesthesia options, risks, benefits, and alternatives with patient/parents/legal guardian/POA. Questions invited. The patient/parents/legal guardian/POA seems to understand and agrees to proceedwith anesthesia plan. Reviewed the physical assessment, medical history, allergy history and patient home medications list prior to surgery/procedure/anesthetic and documented any changes. Performed airway and anesthesia risk assessments. Anesthesia Type Anesthesia Type: General and Block Anesthesia Focused Assessment* Temperature: 97.8 F Pulse Rate: 69 Blood Pressure: 121/73 Respiratory Rate: 16 Pulse Ox: 97 Airway Assessment Mouth opens: >3 cm Mallampati Score: II Focused Labs Anesthesia Preop lab: 2 CBC WBC 4.7 K/mm3 (4.4-11.0) 09/29/24 08:08 09/29/24 RBC 3.97 M/mm3 (4.2-5.4) L 09/29/24 08:08 09/29/24 Hgb 11.3 g/dL (12.0-15.0) L 09/29/24 08:08 5 Hct 34.3 % (37-47) L 09/29/24 08:08 09/29/24 Plt Count 169 K/mm3 (150-450) 09/29/24 08:08 09/29/24 CHEMISTRY Potassium 3.8 mmol/L (3.3-5.1) 09/29/24 08:08 09/29/24 Sodium 137 mmol/L (133-145) 09/29/24 08:08 09/29/24 Magnesium 2.3 mg/dL (1.6-2.6) 07/03/18 17:10 07/03/18 BUN 12 mg/dL (4-19) 09/29/24 08:08 09/29/24 Creatinine 0.89 mg/dL (0.70-1.20) 09/29/24 08:08 09/29/24 Glucose 87 mg/dL (70-99) 09/29/24 08:08 09/29/24 TSH 0.70 uIU/mL (0.358-3.74) 03/20/22 08:34 COAG Urine Test Negative Negative 10/04/24 06:05 10/04/24 Pre-Assessment Diagnosis/Proposed Procedure Planned Operative Procedure(s): RIGHT ANKLE ORIF Anesthesia History 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 When Was Last Pacemaker Check QUESTION #4 FULL TEXT: You/Your Family Experience fever (hyperthermia) with Anesthesia Last Oral Intake Last Oral intake: Last Oral Intake NPO since 00:00 10/04/24 06:20 Meds taken in AM with sips of No 10/04/24 06:20 water? 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 helper Female Yes 10/01/24 08:53 HX of Motion Sickness No 10/01/24 08:53 HX of N/V After Surgery No 10/01/24 08:53 Non-Smoker Yes 10/01/24 08:53 Duration of Surgery greater Yes 10/01/24 08:53 than 60 minutes Number of Risk Factors 3 10/01/24 08:53 PONV Score Moderate Risk 10/01/24 08:53 Height & Weight Height & Weight: Anesthesia: Height & Weight Height 5 ft 2 in 10/04/24 06:20 Weight: 74 kg 10/04/24 06:20 Body Mass Index (BMI) 29.8 10/04/24 06:20 Respiratory Assessment Respiratory Assessment - stitch bonder machine operator helper: Respiratory Tract Infection Hx - stitch bonder machine operator helper Hx Respiratory Tract Infection No 10/01/24 08:53 STOP Sleep Apnea STOP Sleep Apnea - stitch bonder machine operator helper: STOP Sleep Apnea - stitch bonder machine operator helper Hx Hypertension Yes: CONTROLLED WITH MEDS 10/01/24 08:53 Hx Sleep Apnea Yes 10/01/24 08:53 CPAP Yes: NONCOMPLIANT 10/01/24 08:53 BIPAP No 10/01/24 08:53 Do you snore loudly (louder than talking or can be heard Do you often feel tired/ fatigued/ sleepy during daytime? Has anyone observed you stop breathing during sleep? STOP Results Positive 10/01/24 08:53 QUESTION #5 FULL TEXT : Do you snore loudly (louder than talking or can be heard through closed doors)? 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 machine operator helper Tobacco Use Smoking Status Former smoker 10/01/24 08:53 Hx Tobacco Use No 10/01/24 08:53 Years Smoking Packs Smoked per Day Smoking Cessation Date was Yes - quit smoking within 15 10/01/24 08:53 within the last 15 years years Hx Smoking Cessation Date 06/16/22 10/01/24 08:53 Hx Smoking Cessation No 10/01/24 08:53 Counseling Hematologic Medial History Hematologic Hx - stitch bonder machine operator helper: Hematologic Medical Hx - technician automated equipment Hx of Blood Transfusion No 10/01/24 08:53 Hx of Transfusion in last 3 No 10/01/24 08:53 Months Date of Last Transfusion (if within last 3 months) Ever experience any problems No 10/01/24 08:53 with transfusion(s)? Specify any problems Hx of Preganancy in last 3 No 10/01/24 08:53 Months Nurse Filling Out Transfusion DSCHRIBER 10/01/24 08:53 & Questions: Date: 10/01/24 10/01/24 08:53 Time: 08:55 10/01/24 08:53 Patient unable to answer at this time (ie. 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 bonder machine operator helper: /Reproductive Hx- stitch bonder machine operator helper Hx Now No 10/01/24 08:53 Gestational Age (in weeks): EDC: Hx Hx Para Hx Section SAB No 10/01/24 08:53 Active Medications Active Medications: Current Medications Generic Name Dose Route Start Last Admin Trade Name Freq PRN Reason Stop Dose Admin Cefazolin Sodium 2 gm/ N/A 20 mls @ 400 mls/hr 10/04/24 07:30 IV 10/04/24 07:32 INTRAOP ONE [facility] Medical History Fatty liver Back pain Ochoa esophagus History of hiatal hernia History of pain when walking Wears contact lenses Wears glasses Alcohol use Anemia Gastric reflux Former smoker CPAP (continuous positive airway pressure) dependence Shortness of breath on exertion History of echocardiogram IBS (irritable bowel syndrome) Hypertension Depression Anxiety Home Medications ?Medication ?Instructions ?Recorded ?Last Taken ?Type alprazolam 0.5 mg tablet (Xanax) 0.5 mg PO QHS PRN anx iety 09/26/22 Unknown History amlodipine 5 mg tablet 5 mg PO DAILY 09/26/2204/04 History bupropion HCl 150 mg tablet,12 hr 150 mg PO DAILY 09/14 09/05 Unknown History sustained-release (Wellbutrin SR) lisinopril 10 mg tablet 10 mg PO DAILY 09/26/2203/17 History sertraline 100 mg tablet (Zoloft) 200 mg PO QHS Unknown History trazodone 150 mg tablet 150 mg PO QHS 09/26/22 Unkno wn History pantoprazole 40 mg tablet,delayed 40 mg PO QHS #30 tab s 09/21/24 Unknown Rx release (Protonix) oxycodone-acetaminophen 5 mg-325 1 tab PO Q6H PRN PRN Pain 3 days 09/26/24 Unknown Rx mg tablet #12 TABLETS bupropion HCl 300 mg 24 hr tablet, 300 mg PO DAILY Unknown History extended release Allergy/AdvReac Type Severity Reaction Status Date / Time acetaminophen (From Vicodin) Allergy Mild Nausea/Vom/ Verified 10/01/24 08:48 Diarrhea hydrocodone (From Vicodin) Allergy Mild Nausea/Vom/ Verified 10/01/24 08:48 Diarrhea Family History Aunt Colon cancer Cancer lung Grandfather Heart disease Surgical History Hx of colonoscopy S/P wisdom tooth extraction Social History household members: spouse and children housing: house number of children: 3 current occupational status: employed current occupation: [employer] Smoking Status: Former smoker alcohol intake: current alcohol intake frequency: a few times a month substance use type: does not use seatbelt use: always do you feel safe at home: Yes 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 10/04/24 0656 <Electronically signed by Sacah Mckenna MD > Date _ Sacha Mckenna MD Cosigner Signature: Date CC: ~ Signed [facility] Work Phone: 1(674) 636-444704-16-2025 Radiology Diagnostic study note [facility] Imaging Services [address] [place] [id number] Extremity Lower without Contra MR#: [id number] Acct: [id number] Name: MERLE HOFF Rep #: [id number] : 1980 F 44 From: Tan Alvarez MD PCP: Dr. Maxime Villa MD Status: REG CLI Study:Extremity Lower without Contra Date of Exam: 09/29/24 Exam# [id number] Ordering Dr: Alfred Gonzales PROCEDURE: EXTREMITY LOWER WITHOUT CONTRA 09/29/2024 REASON FOR EXAM: PRE OP/RLL FX TECHNIQUE: Axial CT images of the right ankle obtained without intravenous contrast. Coronal and Sagittal reconstruction series were provided. One or more dose reduction techniques were used (e.g., Automated exposure control, adjustment of the mA and/or kV according to patient size, use of iterative reconstruction technique CONTRAST: None RADIATION DOSE SUMMARY: CTDlvol: 15.35 mGy DLP: 384.46 mGycm COMPARISON: None FINDINGS: Bones: Nondisplaced oblique fracture of the lateral malleolus. Nondisplaced avulsion fracture of the anterior aspect of the the fracture line extends into the articular surface. No significant displacement is seen. Medial malleolus. Joints: The ankle mortise is asymmetrical. Soft Tissues: Swelling. CT/Extremity Lower without Contra IMPRESSION: Nondisplaced oblique fracture of the lateral malleolus as well as an avulsion fracture of the medial malleolus along its anterior aspect. This abuts the articular surface. Asymmetry of the ankle mortise. Soft tissue swelling. Reading [facility] CC: Dr. Maxime Villa MD; LUCIANO Kelly ~ Alterations Sewer: Signed [facility]04-13-2025 Radiology Diagnostic study note [facility] Imaging Services [address] [place] [address] Foot min 3 Views MR#: [id number] Acct: [id number] Name: MERLE HOFF Rep #: [id number] : 1980 F 44 From: Corina Roberts MD PCP: Dr. Maxime Villa MD Status: REG ER Study:Foot min 3 Views Date of Exam: Exam# [id number] Ordering Dr: Brian Green DO PROCEDURE: FOOT MIN 3 VIEWS 09/26/2024 REASON FOR EXAM: INJURY TECHNIQUE: 3 views of the right foot. COMPARISON: Same day right ankle and right tibia/fibula radiographs. FINDINGS: Bones: No acute osseous foot fracture. Visualization is slightly limited by overlying casting material. Joints: Normal alignment. Joint spaces preserved. No arthropathic features. Soft tissues: Soft tissue swelling of the lower ankle. RAD/Foot min 3 Views IMPRESSION: No acute osseous foot fracture. Visualization is slightly limited by overlying casting material. Reading Location: [facility] CC: Dr. Maxime Villa MD; Dr. Malick Green DO ~ Alterations Sewer: Signed [facility]04-13-2025 Radiology Diagnostic study note [facility] Imaging Services [address] [place], [place] [address] Ankle min 3 Views MR#: [id number] Acct: [id number] Name: MERLE HOFF Rep #: [id number] : 1980 F 44 From: Corina Roberts MD PCP: Dr. Maxime Villa MD Status: REG ER Study:Ankle min 3 Views Date of Exam: Exam# [id number] Ordering Dr: Brian Green DO PROCEDURE: ANKLE MIN 3 VIEWS 09/26/2024 REASON FOR EXAM: FRACTURE DISLOCATION TECHNIQUE: 3 views of the right ankle COMPARISON: Same day tibia/fibula radiographs. FINDINGS: Bones: Acute spiral fracture deformity of the distal right fibula at the level of the syndesmosis. Acute linear fracture with angulation and distraction of the medial malleolus. Joints: There is slight widening of the medial clear space. Soft tissues: Soft tissue swelling. Other: Casting material of the right lower extremity. RAD/Ankle min 3 Views IMPRESSION: Acute medial and lateral malleolar fractures (Irene type B). Reading Location: [facility] CC: Dr. Maxime Villa MD; Dr. Malick Green DO ~ Alterations Sewer: Signed [facility]04-13-2025 Radiology Diagnostic study note [facility] Imaging Services [address] [place], [place] [address] Tibia & Fibula 2 Views MR#: [id number] Acct: [id number] Name: MERLE HOFF Rep #: [id number] : 1980 F 44 From: Corina Roberts MD PCP: Dr. Maxime Villa MD Status: REG ER Study:Tibia & Fibula 2 Views Date of Exam: 09/26/24 Exam# [id number] Ordering Dr: Brian Green DO PROCEDURE: TIBIA FIBULA 2 VIEWS 09/26/2024 REASON FOR EXAM: INJURY TECHNIQUE: 3 views of the right tibia and fibula COMPARISON: None. FINDINGS: Bones: No acute fracture of the proximal tibia or fibula. See same day ankle/foot radiographs for discussion of distal fractures. Joints: Normal alignment at the knee joint. Soft tissues: Soft tissues are unremarkable. Other: Right lower leg casting material. RAD/Tibia & Fibula 2 Views IMPRESSION: No acute fracture of the proximal tibia or fibula. See same day ankle/foot radiographs for discussion of distal fractures. Reading Location: [facility] CC: Dr. Maxime Villa MD; Dr. Malick Green DO ~ Alterations Sewer: Signed [facility]02-07-2025 Evaluation note* Diagnosis Onset Date Resolution Status Admit Date Barretts esophagus acute Februa 2024 3:06pm Fatty liver acute July 23, 2024 3:06pm Gastroparesis acute July h2024 3:06pm Hiatal hernia acute July h2024 3:06pm Nausea acute July 23, 2024 3:06pm IBS (irritable bowel syndrome) chron ic July 23, 2024 3:06pm [facility] Work Phone: 1(540) 553-895110-20-2023 [facility]10[facility]2023 Procedure note [facility]10-20-2023 Procedure [facility] 09-26-2022 NotePap Smear Specimen AdequacyApril 2022 2:09pmComment. Satisfactory for evaluation. Endocervical and/or squamous metaplasticcells (endocervical component)are present.[facility] A#[id number] Memorial HospitalComment on above:Satisfactory for evaluation. Endocervical and/or squamous metaplasticcells (endocervical component)are present.09-26-2022 NotePap Smear Specimen AdequacyApril 2022 2:09pmComment.Satisfactory for evaluation. Endocervical and/or squamous metaplasticcells (endocervical component)are present.[facility] A#[id number] [facility] Hospital Comment on above:Satisfactory for evaluation. Endocervical and/or squamous metaplasticcells (endocervical component)are present.Consult note Author II Fabrice Cuevas [facility] Note Date/Time October 04, 2024 9:5 1am [facility] Medical Records Department [address] [place] [address] Anesthesia Postop Eval I 10/04/24 0948 MR#: [id number] Acct: [id number] Name: MERLE HOFF Rep #:[id number] : 1980 44 From: Fabrice Marrero CRNA PCP: Dr. Maxime Villa MD Status :REG SDC Y Race: C Location: [place] [address] Anesthesia: Postop Eval I Current Vital Signs Temperature: 97.6 F Pulse Rate: 78 Blood Pressure: 111/72 Respiratory Rate: 18 Pulse Ox: 94 Oxygen Delivery Method: Nasal Cannula Oxygen Flow Rate (L/min): 2 Assessment Airway patent: Yes Spontaneous unlabored respirations: Yes Mental status: Awake and Calm nausea: No Vomiting: No Anesthesia Complication: No Fluid Hydration Crystalloid volume administer (ml): 1,700 Total IV fluid infused: 1,700 Progress Note Post-operative progress note: Pt comfortable, 0/10 pain in R ankle, Post op Eval1 completed. Anesthesia document: Postop Eval 1 completed: Yes 10/04/24950 <Electronically signed by Fabrice Cuevas II, CRNA> Date _ Fabrice Cuevas II, CRNA Cosigner Signature: Date CC: ~ Signed [facility] Work Phone: Consult note Author Sacha jayme [facility] Note Date/Time October 04, 2024 11: 39am [facility] Medical Records Department [address] [place] [address] Anesthesia Postop Eval II 10/04/24 1000 MR#: [id number] Acct: [id number] Name: MERLE HOFF Rep #:[id number] : 1980 44 From: Sacha Mckenna MD PCP: Dr. Maxime Villa MD Status :REG [facility] [place] Race: C Location: [place] [address] Anesthesia Postop Eval I Sum Postop Eval Completion status Anesthesia document: Postop Eval 1 completed: Yes Anesthesia Postop Eval I Summary Anesthesia Postop Eval I Summary: Anesthesia Postop Eval I: Assessment Summary Airway patent Yes 10/04/24 09:51 SAFETY SCIENTIST.DBAK Spontaneous unlabored Yes 10/04/24 09:51 SAFETY SCIENTIST.DBAK respirations Mental status Awake,Calm 10/04/24 09:51 SAFETY SCIENTIST.DBAK nausea No 10/04/24 09:51 SAFETY SCIENTIST.DBAK Vomiting No 10/04/24 09:51 SAFETY SCIENTIST.DBAK Anesthesia Postop Eval I: Fluid Summary Crystalloid volume administer 1,700 10/04/24 09:51 SAFETY SCIENTIST.DBAK (ml) Colloids volume administered ( ml) Blood Product volume administered (ml) Total IV fluid infused 1,700 10/04/24 09:51 SAFETY SCIENTIST.DBAK Anesthesia Postop Eval I: Summary Notes Anesthesia Complication No 10/04/24 09:51 SAFETY SCIENTIST.DBAK Anesthesia Complication Comment: Post-operative progress note Pt comfortable, 0/ 10/04/24 09:51 SAFETY SCIENTIST.DBAK 10 pain in R ankle , Post op Eval 1 completed. Anesthesia: Postop Eval II Evaluation Mental status: Awake Pain Level: 0 nausea: No Vomiting: No 10/04/24 1000 <Electronically signed by Sacha Mckenna MD > Date _ Sacha Mckenna MD Cosigner Signature: Date CC: ~ Signed [facility] Work Phone: Consult note [facility] Medical Records Department [address] [place] [address] Anesthesia Postop Eval II 03/31/25 1408 MR#: [id number] Acct: [id number] Name: MERLE HOFF Rep #:[id number] : 1980 44 From: Jonny Torres PCP: Dr. Maxime Villa MD Status :[facility] Y Race: C Location: [place] Anesthesia Postop Eval I Sum Postop Eval Completion status Anesthesia document: Postop Eval 1 completed: Yes Anesthesia Postop Eval I Summary Anesthesia Postop Eval I Summary: Anesthesia Postop Eval I: Assessment Summary Airway patent Yes 03/31/25 10:59 [email or web address] Spontaneous unlabored Yes 03/31/25 10:59 AA.TBEND respirations Mental status Awake,Calm 03/31/25 10:59 AA.TBEND nausea No 03/31/25 10:59 AA.TBEND Vomiting No 03/31/25 10:59 AA.TBEND Anesthesia Postop Eval I: Fluid Summary Crystalloid volume administer 400 03/31/25 10:59 AA.TBEND (ml) Colloids volume administered ( ml) Blood Product volume administered (ml) Total IV fluid infused 400 03/31/25 10:59 AA.TBEND Anesthesia Postop Eval I: Summary Notes Anesthesia Complication No 03/31/25 10:59 AA.TBEND Anesthesia Complication Comment: Post-operative progress note Anesthesia: Postop Eval II Evaluation Mental status: Awake and Calm Pain Level: 1 nausea: No Vomiting: No Complications Anesthesia Complication: No 03/31/25 1408 MD> Date _ Jonny Gómez MD Cosigner Signature: Date CC: ~ Signed [facility] Author Jonny Gómez [facility] Note Date/Time March 31, 2025 9 :34am [facility] Medical Records Department [address] [place] [address] Pre-Anesthesia Evaluation 03/31/25 0932 MR#: [id number] Acct: [id number] Name: MERLE HOFF Rep #:[id number] : 1980 44 From: Jonny Torres PCP: Dr. Maxime Villa MD Status :REG [facility] [place] Race: C Location: [place] [address] ASA Classification* ASA Classification ASA Classification: 2 Assessment & Plan Anesthesia* Anesthesia Assessment Anesthesia Assessment: Discussed sedation and/or anesthesia options, risks, benefits, and alternatives with patient/parents/legal guardian/POA. Questions invited. The patient/parents/legal guardian/POA seems to understand and agrees to proceedwith anesthesia plan. Reviewed the physical assessment, medical history, allergy history and patient home medications list prior to surgery/procedure/anesthetic and documented any changes. Performed airway and anesthesia risk assessments. Anesthesia Type Anesthesia Type: MAC History Source History Obtained from:: Patient and Chart Anesthesia Focused Assessment* Temperature: 98.3 F Pulse Rate: 72 Blood Pressure: 117/71 Respiratory Rate: 16 Pulse Ox: 100 Oxygen Delivery Method: Room Air Airway Assessment Mouth opens: >3 cm Mallampati Score: II Teeth Condition: Intact Neck Range of motion (ROM): Full ROM Labs Anesthesia Preop lab: CBC WBC, (4.4-11.0) 4.7 K/mm3 09/29/24, 08:08 RBC, (4.2-5.4) 3.97 M/mm3 L 09/29/24, 08:08 Hgb, (12.0-15.0) 11.3 g/dL L 09/29/24, 08:08 Hct, (37-47) 34.3 % L 09/29/24, 08:08 Plt Count, (150-450) 169 K/mm3 09/29/24, 08:08 CHEMISTRY Potassium, (3.3-5.1) 3.8 mmol/L 09/29/24, 08:08 Sodium, (133-145) 137 mmol/L 09/29/24, 08:08 Magnesium, (1.6-2.6) 2.3 mg/dL 07/03/18, 17:10 BUN, (4-19) 12 mg/dL 09/29/24, 08:08 Creatinine, (0.70-1.20) 0.89 mg/dL 09/29/24, 08:08 Glucose, (70-99) 87 mg/dL 09/29/24, 08:08 TSH, (0.358-3.74) 0.70 uIU/mL 03/20/22, 08:34 COAG Urine Test Negative Negative Today, 08:45 Pre-Assessment Diagnosis/Proposed Procedure Planned Operative Procedure(s): EGD Anesthesia History 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 When Was Last Pacemaker Check QUESTION #4 FULL TEXT: You/Your Family Experience fever (hyperthermia) with Anesthesia Last Oral Intake Last Oral intake: Last Oral Intake NPO since 23:45 03/31/25 09:07 Meds taken in AM with sips of water? 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 helper Female Yes 03/29/25 15:42 HX of Motion Sickness No 03/29/25 15:42 HX of N/V After Surgery Yes 03/29/25 15:42 Non-Smoker Yes 03/29/25 15:42 Duration of Surgery greater No 03/29/25 15:42 than 60 minutes Number of Risk Factors 3 03/29/25 15:42 PONV Score Moderate Risk 03/29/25 15:42 Height & Weight Height & Weight: Anesthesia: Height & Weight Height 5 ft 2 in 03/31/25 09:07 Weight: 76.204 kg 03/31/25 09:07 Body Mass Index (BMI) 30.7 03/31/25 09:07 Respiratory Assessment Respiratory Assessment - 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 Has anyone observed you stop breathing during sleep? STOP Results Positive 03/29/25 15:42 QUESTION #5 FULL TEXT : Do you snore loudly (louder than talking or can be heard through closed doors)? 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 Specify any problems Hx of Preganancy in last 3 No 03/29/25 15:42 Months Nurse Filling Out Transfusion VLEHMAN 03/29/25 15:42 & Questions: Date: 03/29/25 03/29/25 15:42 Time: 15:52 03/29/25 15:42 Patient unable to answer at this time (ie. 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 bonder machine operator helper: /Reproductive Hx- stitch bonder machine operator helper Hx Now No 03/29/25 15:42 Gestational Age (in weeks): EDC: Hx Hx Para Hx Section SAB No 03/29/25 15:42 Active Medications Active Medications: Current Medications Generic Name Dose Route Start Last Admin Trade Name Freq PRN Reason Stop Dose Admin Lactated Ringer's 1,000 mls @ 15 mls/hr 03/31/25 08:45 03/31/25 09:18 IV 15 mls/hr .Q48H SALOME Administration PFSH Medical History History of steroid therapy Arthritis Difficulty swallowing History of IBS Heartburn Sleep apnea Fatty liver Back pain Ochoa esophagus History of hiatal hernia History of pain when walking Wears contact lenses Wears glasses Alcohol use Anemia Gastric reflux Former smoker CPAP (continuous positive airway pressure) dependence Shortness of breath on exertion History of echocardiogram IBS (irritable bowel syndrome) Hypertension Depression Anxiety Home Medications ?Medication ?Instructions ?Recorded ?Last Taken ?Type alprazolam 0.5 mg tablet (Xanax) 0.5 mg PO QHS PRN anx iety 09/26/22 03/30/25 History 0.25 mg amlodipine 5 mg tablet 5 mg PO DAILY 09/26/2203/30 History bupropion HCl 150 mg tablet,12 hr 150 mg PO DAILY 09/1403/30/25 History sustained-release (Wellbutrin SR) lisinopril 10 mg tablet 10 mg PO DAILY 09/26/2203/16 History sertraline 100 mg tablet (Zoloft) 200 mg PO QHS 03/30/25 History trazodone 150 mg tablet 150 mg PO QHS 09/26/2203/30 History bupropion HCl 300 mg 24 hr tablet, 300 mg PO DAILY 03/30/25 History extended release pantoprazole 40 mg tablet,delayed 40 mg PO QHS #30 tab s 02/07/25 03/30/25 Rx release (Protonix) cholecalciferol (vitamin D3) 10 10 mcg PO QDAY 5 03/30/25 History mcg (400 unit) capsule multivitamin 1 tab PO QAM 03/23/25 History vitamin E 180 mg/2 mL oral drops 180 mg PO DAILY 03/2303/30/25 History (Purevita Vitamin E) Allergy/AdvReac Type Severity Reaction Status Date / Time hydrocodone (From Vicodin) Allergy Mild Nausea/Vom/ Verified 03/31/25 09:03 Diarrhea Family History Aunt Colon cancer Cancer lung Grandfather Heart disease Surgical History History of ankle surgery Hx of colonoscopy S/P wisdom tooth extraction Social History household members: spouse and children housing: house number of children: 3 current occupational status: employed current occupation: [employer] Smoking Status: Former smoker alcohol intake: current alcohol intake frequency: a few times a month substance use type: does not use seatbelt use: always do you feel safe at home: Yes 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 03/31/2534 <Electronically signed by Jonny Gómez MD> Date _ Jonny Prajapati Signature: Date CC: ~ Signed [facility] Work Phone: Consult note Author Volodymyr Squires [facility] Note Date/Time March 31, 2025 1 0:59am [facility] Medical Records Department [address] [place] [address] Anesthesia Postop Eval I 03/31/25 1058 MR#: [id number] Acct: [id number] Name: MERLE HOFF Rep #:[id number] : 1980 44 From: Volodymyr Squires PCP: Dr. Maxime Villa MD Status :[facility] Y Race: C Location: [place] [address] Anesthesia: Postop Eval I Current Vital Signs Temperature: 98 F Pulse Rate: 76 Blood Pressure: 123/67 Respiratory Rate: 16 Pulse Ox: 98 Oxygen Delivery Method: Room Air Assessment Airway patent: Yes Spontaneous unlabored respirations: Yes Mental status: Awake and Calm nausea: No Vomiting: No Anesthesia Complication: No Fluid Hydration Crystalloid volume administer (ml): 400 Total IV fluid infused: 400 Progress Note Anesthesia document: Postop Eval 1 completed: Yes 03/31/25 1059 <Electronically signed by Volodymyr Squires > Date _ Volodymyr Prajapati Signature: Date CC: ~ Signed [facility] Work Phone: Consult note Author Jonny Gómez [facility] Note Date/Time March 31, 2025 2 :08pm [facility] Medical Records Department [address] [place] [address] Anesthesia Postop Eval II 03/31/25 1408 MR#: [id number] Acct: [id number] Name: MERLE HOFF Rep #:[id number] : 1980 44 From: Jonny Torres PCP: Dr. Maxime Villa MD Status :DEP [facility] [place] Race: C Location: [place] Anesthesia Postop Eval I Sum Postop Eval Completion status Anesthesia document: Postop Eval 1 completed: Yes Anesthesia Postop Eval I Summary Anesthesia Postop Eval I Summary: Anesthesia Postop Eval I: Assessment Summary Airway patent Yes 03/31/25 10:59 [email or web address] Spontaneous unlabored Yes 03/31/25 10:59 AA.TBEND respirations Mental status Awake,Calm 03/31/25 10:59 AA.TBEND nausea No 03/31/25 10:59 AA.TBEND Vomiting No 03/31/25 10:59 AA.TBEND Anesthesia Postop Eval I: Fluid Summary Crystalloid volume administer 400 03/31/25 10:59 AA.TBEND (ml) Colloids volume administered ( ml) Blood Product volume administered (ml) Total IV fluid infused 400 03/31/25 10:59 AA.TBEND Anesthesia Postop Eval I: Summary Notes Anesthesia Complication No 03/31/25 10:59 AA.TBEND Anesthesia Complication Comment: Post-operative progress note Anesthesia: Postop Eval II Evaluation Mental status: Awake and Calm Pain Level: 1 nausea: No Vomiting: No Complications Anesthesia Complication: No 03/31/25 140 <Electronically signed by Jonny Gómez MD> Date _ Jonny Gómez MD Cosigner Signature: Date CC: ~ Signed [facility] Work Phone: Evaluation noteNo assessment information available [facility] Work Phone: Evaluation note* Diagnosis Onset Date Resolution Status IBS (irritable bowel syndrome) acute Melasma acute Encounter for routine gynecological examination noneactive [facility] Work Phone: Evaluation note* Diagnosis Onset Date Resolution Status IBS (irritable bowel syndrome) chronic [facility] Work Phone: History and physical note Author Porfirio Friend [facility] April 04, 2023 6:36am Note Date/Time April 04, 2023 6 :36am [facility] Medical Records Department [address] [place] [address] History & Physical Exam 04/04/23 0636 MR#: [id number] Acct: [id number] Name: MERLE HOFF Rep #:[id number] : 1980 42 From: Porfirio Huertas DO PCP: Dr. Dheeraj Villa MD Status: [facility] Location: [place] [address] History and Physical Date of Admission: 04/04/23 Gynecology established 4.13.23 noting difficulty with IBS and referred to GI. *BGI established 8.23.23 BM alternate between constipation (lack of BM or hard/small stools) with loose stools and abdominal cramping lasting all day for 1-2 days, with all BM she has mucus and will leak from her rectum uncontrollably; bloating is a daily issue. Hemorrhoids are also a problem. Intermittent GERD is also a problem, managed with PRN Zantac and TUMs. Feels a lot of her symptoms are stress related. Strong FH of colon cancer on both sides of her family; her parents have not experienced colon cancer to date. Last colonoscopy 10 years priorMERLE HOFF,is a 42 F who presents to the office today for ROS Const Constitutional: No anorexia, fatigue, fever(s), weight change or sleep problems Eyes Eyes: No change in vision ENT ENT: No abnormal hearing, difficulty swallowing, mouth lesions, tongue swelling or throat swelling Resp Respiratory: No cough or shortness of breath Cardio Cardiology: No chest pain at rest, chest pain with exertion, shortness of breathor dyspnea on exertion Gastro GI: No difficulty swallowing Genitourinary-Female: No difficulty urinating or burning urination Musc Musculoskeletal: No joint pain, joint swelling, muscle weakness or decreased muscle mass Skin Skin: No hair loss in leg, yellowing of the eye, itchy eyes, rash, skin ulcer orskin swelling Neuro Neurology: No abnormal hearing, abnormal movements, confusion, unsteady gait/balance or memory loss Psych Psychiatric: No anxiety, No confusion and No memory loss Endo Endocrine: No fatigue or weight change Aller/Imm Allergy/Immunologic: No itchy eyes, throat swelling or tongue swelling Kali/Lymp Hematologic/Lymphatic: No easy bleeding, easy bruising or enlarged lymph nodes Exam Const General: cooperative and comfortable Nutritional Appearance: average body habitus and well nourished HENMT Head: normal to inspection Ears: hearing grossly normal bilaterally Nose: external nose normal Face and sinus: normal facial exam Mouth: oral mucosae normal Throat: posterior oropharynx normal Eyes General: appearance normal, both eyes and all related structures Neck Neck: normal visual inspection Chest Chest palpation & inspection: normal inspection of the chest and normal palpation of entire chest wall Resp Effort & Inspection: normal respiratory effort Auscultation: Bilateral: Clear to Auscultation Cardio Palpation: normal PMI Rate: regular rate Rhythm: regular rhythm GI Inspection: normal to inspection Auscultation: normal bowel sounds Percussion: normal to percussion Palpation: no hepatosplenomegaly Skin General: no rashes or lesions noted Neuro General: patient alert Extrem General: normal to inspection Psych Affect: normal affect Quality Reporting Tobacco Screening ([facility] 138) Smoking Status: Current some day smoker Assessment and Plan Assessment and Plan (1) IBS (irritable bowel syndrome): Status: Chronic Qualifiers: Irritable bowel syndrome type: with both diarrhea and constipation Qualified Code(s): K58.2 - Mixed irritable bowel syndrome Plan: The differential diagnosis for her abdominal pain, bloating, cramping, nausea isdue to bowel syndrome with diarrhea, celiac disease, exocrine pancreatic insufficiency, eosinophilic gastroenteritis, H. pylori associated infection, peptic ulcer disease and less likely inflammatory bowel disease. She will undergo biochemical thing in possible functional testing with gastric emptying study and small bowel motility study. We may also have to get a sits marker test in order to evaluate her colon for colonic inertia and slow transit constipation versus pelvic floor dysfunction. She will undergo EGD and colonoscopy with biopsies of the upper and lower GI tract. She was explained alternatives, risk, benefits include not withstanding bleeding, infection, sepsis, perforation, need for emergent and . She have an ASA of 2. Orders: Orders Stool Lactoferrin/WBC Today K58.9 - Irritable bowel syndrome without diarrhea Erythrocyte Sed Rate Today K58.9 - Irritable bowel syndrome without diarrhea ANCA Today K58.9 - Irritable bowel syndrome without diarrhea LDH Today K58.9 - Irritable bowel syndrome without diarrhea CRP Today K58.9 - Irritable bowel syndrome without diarrhea MARICEL Comprehensive Panel Today K58.9 - Irritable bowel syndrome without diarrhea Immunoglobulins G/A/M/E Today K58.9 - Irritable bowel syndrome without diarrhea Celiac Disease Profile Today K58.9 - Irritable bowel syndrome without diarrhea CBC W/Diff, Automated Today K58.9 - Irritable bowel syndrome without diarrhea RITO + Protein Elect, Serum Today K58.9 - Irritable bowel syndrome without diarrhea Calprotectin, Stool Today K58.9 - Irritable bowel syndrome without diarrhea Comprehensive Metabolic Profil Today K58.9 - Irritable bowel syndrome without diarrhea Pancreatic Elastase, Fecal Today K58.9 - Irritable bowel syndrome without diarrhea OVA+PARA w/Giardia EIA [id number] Today K58.9 - Irritable bowel syndrome without diarrhea Fecal Fat, Qualitative Today K58.9 - Irritable bowel syndrome without diarrhea ENTERIC PATHOGEN PANEL STOOL Today K58.9 - Irritable bowel syndrome without diarrhea CDIFF (PCR) Today K58.9 - Irritable bowel syndrome without diarrhea Miscellaneous Lab Procedure Today K58.9 - Irritable bowel syndrome without diarrhea Gastrin, Serum Today K58.9 - Irritable bowel syndrome without diarrhea Allergen, Food Profile Today K58.9 - Irritable bowel syndrome without diarrhea Allergen, Rast Food Profile Today K58.9 - Irritable bowel syndrome without diarrhea I have examined the patient and the H&P has been reviewed. There are no clinicalchanges since date of exam. 04/04/23 0636 <Electronically signed by Porfirio Huertas DO> Cosigner Signature (if applicable): CC: Dr. Dheeraj Villa MD; Porfirio Huertas DO~ Signed [facility] Work Phone: History and physical note Author Porfirio Huertas [facility] Note Date/Time March 31, 2025 1 0:04am [facility] Medical Records Department [address] [place] [address] History & Physical Exam 03/31/25 1003 MR#: [id number] Acct: [id number] Name: MERLE HOFF Rep #:[id number] : 1980 44 From: Porfirio Friend DO PCP: Dr. Maxime Villa MD Status :[facility] Location: [place] [address] HPI - General General Date of Admission: 03/31/25 Date of Service: 03/31/25 HPI Narrative MERLE HOFF is a 44 F who presents [Chief Complaint: Reflux Details: MERLE HOFF is a 44 F who presents to the office today for follow-up. OV 07.31.23 Recently decreased pantoprazole 40 mg once daily as directed. Alternating constipation, diarrhea, and abdominal cramping. Nearly constant bloating. After having a bowel movement will have mucous leaking from rectum for rest of the day. Hemorrhoids also continue. Heartburn after certain foods, times of increased stress, and occasionally during the night. GET 3.13.24 normal 48.06 minutes abd US 4.30.24 There is no demonstrated mass lesion. Median liver stiffness measured 4.9 kPa. OV 8.8.24 pt reports continued symptoms of nausea, diarrhea, abd pain, gas/bloating, heartburn, and difficulty swallowing her pills. OV 11.8.24 pt reports that her symptoms have improved from previous visit. Continues to have difficulty swallowing her pills. Has occasional abdominal discomfort from bloating. OV 2.7.25 pt reports alternating bowel movements, but states that it is improved from before. pt reports that pantoprazole is helpful for her HB. US and elastography ..25 hepatic measurement 17.3cm with fatty infiltration, stiffness measures 4.9kPa. OV 8.6.25 pt reports that she has been feeling well, ongoing symptoms, but nothing new". Continues with Pantoprazole. States it may be time for another EGD, last was in . OV 03/23/25 patient reports continued reflux symptoms every other day. She is currently taking pantoprazole 40 mg daily. In the past she is taking this twice a day. Symptoms seem to be worse in nighttime and will often wake up with reflux. Patient also having a hard time swallowing her pills which is unlike her. She denies any problems swallowing foods but will choke on liquids on occasion. She denies nausea or vomiting. ] [facility], LAT[facility] Medical History (Updated 03/31/25 @ 10:[address] Monroy Friend, DO) History of steroid therapy Arthritis Difficulty swallowing History of IBS Heartburn Sleep apnea Fatty liver Back pain Ochoa esophagus History of hiatal hernia History of pain when walking Wears contact lenses Wears glasses Alcohol use Anemia Gastric reflux Former smoker CPAP (continuous positive airway pressure) dependence Shortness of breath on exertion History of echocardiogram IBS (irritable bowel syndrome) Hypertension Depression Anxiety Home Medications ?Medication ?Instructions ?Recorded ?Last Taken ?Type alprazolam 0.5 mg tablet (Xanax) 0.5 mg PO QHS PRN anx iety 09/26/22 03/30/25 History 0.25 mg amlodipine 5 mg tablet 5 mg PO DAILY 09/26/2203/30 History bupropion HCl 150 mg tablet,12 hr 150 mg PO DAILY 09/1403/30/25 History sustained-release (Wellbutrin SR) lisinopril 10 mg tablet 10 mg PO DAILY 09/26/2203/16 History sertraline 100 mg tablet (Zoloft) 200 mg PO QHS 03/30/25 History trazodone 150 mg tablet 150 mg PO QHS 09/26/2203/30 History bupropion HCl 300 mg 24 hr tablet, 300 mg PO DAILY 03/30/25 History extended release pantoprazole 40 mg tablet,delayed 40 mg PO QHS #30 tab s 02/07/25 03/30/25 Rx release (Protonix) cholecalciferol (vitamin D3) 10 10 mcg PO QDAY 5 03/30/25 History mcg (400 unit) capsule multivitamin 1 tab PO QAM 03/23/25 History vitamin E 180 mg/2 mL oral drops 180 mg PO DAILY 03/2303/30/25 History (Purevita Vitamin E) Allergy/AdvReac Type Severity Reaction Status Date / Time hydrocodone (From Vicodin) Allergy Mild Nausea/Vom/ Verified 03/31/25 09:03 Diarrhea Family History Aunt Colon cancer Cancer lung Grandfather Heart disease Surgical History History of ankle surgery Hx of colonoscopy S/P wisdom tooth extraction Social History household members: spouse and children housing: house number of children: 3 current occupational status: employed current occupation: [employer] Smoking Status: Former smoker alcohol intake: current alcohol intake frequency: a few times a month substance use type: does not use seatbelt use: always do you feel safe at home: Yes 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[employer] Constitutional Constitutional: Denies fatigue, fever(s), poor appetite, weight gain or weight loss Gastrointestinal Gastrointestinal: Denies belching, bloating, change in bowel habits, change in stool character, chewing difficulty, coffee ground emesis, constipation, cramping, diarrhea, dyspepsia, dysphagia, early satiety, excessive flatus, fecalincontinence, heartburn, hematemesis, hematochezia, hemorrhoids, loose stools, melena, nausea, odynophagia, rectal bleeding, tenesmus, vomiting or weight changes Vital Signs Vital Signs Vital Signs: 03/31/25 09:05 03/31/25 09:07 03/31/25 09:34 Temperature 98.3 F 98.3 F Temperature Source Temporal Pulse Rate 72 72 Respiratory Rate 16 16 Respiratory Pattern Normal Blood Pressure 117/71 117/71 Blood Pressure Mean 86 Blood Pressure Source Monitor Blood Pressure Position Semi-Fowlers Blood Pressure Location Right Arm Pulse Ox 100 100 Oxygen Delivery Method Room Air Room Air Weight Weight: 168 lb Body Mass Index (BMI) 30.7 Physical Exam Const alert, oriented x3, no apparent distress and healthy appearing General Appearance: cooperative GI normal to inspection, nondistended, normoactive bowel sounds, soft to palpation,non-tender and non-distended Percussion: normal to percussion Rectal Exam: deferred Results Lab / Micro Data Labs: Laboratory Results - last 24 hr 03/31/25 08:45: Urine Test Negative Assessment & Plan Assessment/Plan (1) Barretts esophagus: (2) Hiatal hernia: (3) Difficulty swallowing: PLAN: Assessment and Plan Assessment and Plan (1) Hiatal hernia: Status: Acute Plan: Nimo is a 44-year-old female patient here today for follow-up regarding her ongoing GI symptoms. Patient continues to have reflux almost every other day despite taking pantoprazole 40 mg daily. Symptoms are worse at night and will often wake her up in her sleep. Patient also endorsing dysphagia to pills and liquids intermittently. Last EGD in 2022 demonstrating LA grade B reflux esophagitis with no bleeding, hiatal hernia, erosive gastropathy with no stigmata of recent bleeding, and erythematous duodenopathy. Biopsies consistentwith focal gastric metaplasia in the duodenum, mild chronic gastritis, and mild chronic inflammation in the esophagus. Of note, patient also with mild anemia in September 2024. Patient will undergo repeat EGD for evaluation of her upper GI symptoms and to rule out upper GI bleeding as cause of her anemia. - Repeat EGD - Continue PPI - Consider further treatment or workup pending results (2) Nausea: Status: Acute (3) IBS (irritable bowel syndrome): Status: Chronic Qualifiers: Irritable bowel syndrome type: with both diarrhea and constipation Qualified Code(s): K58.2 - Mixed irritable bowel syndrome 03/31/25 1004 <Electronically signed by Porfirio Huertas DO> Cosigner Signature (if applicable): CC: Dr. 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 Reason for Visit IBS (irritable bowel syndrome) Melasma Encounter for routine gynecological examination Chief Complaint Consult E-ORDER Reason for Visit IBS (irritable bowel syndrome) Chief Complaint 2 WK FU EORDER Reason for Visit IBS (irritable bowel syndrome) Chief Complaint 2 WK FU EORDER IRRITABLE BOWEL SYNDROME Reason for Visit IBS (irritable bowel syndrome) Chief Complaint 2 WK FU EORDER IRRITABLE BOWEL SYNDROME IRRITABLE BOWEL SYNDROME Reason for Visit IBS (irritable bowel syndrome) Chief Complaint Admit Date 3 M FU July 23, 2024 3 :06pm FATTY LIVER August 05, 2024 8:18am fall September 26, 2024 9:4 7am Reason for Visit Admit Date Barretts esophagus July 23, 2024 3 :06pm Fatty liver July 23, 2024 3 :06pm Gastroparesis July 23, 2024 3 :06pm Hiatal hernia July 23, 2024 3 :06pm Nausea July 23, 2024 3 :06pm IBS (irritable bowel syndrome) July 23, 2024 3:06pm Chief Complaint Admit Date 3 M FU July 23, 2024 3 :06pm FATTY LIVER August 05, 2024 8:18am fall September 26, 2024 9:4 7am Displaced bimalleolar fracture of right lower leg, September 29, 2024 7:42am Chief Complaint Admit Date 3 M FU July 23, 2024 3 :06pm FATTY LIVER August 05, 2024 8:18am fall September 26, 2024 9:4 7am Displaced bimalleolar fracture of right lower leg, September 29, 2024 7:42am PREOP September 29, 2024 7:5 2am ORIF, Ankle October 04, 2024 5:4 9am Chief Complaint Admit Date fall September 26, 2024 9:4 7am Displaced bimalleolar fracture of right lower leg, September 29, 2024 7:42am PREOP September 29, 2024 7:5 2am ORIF, Ankle October 04, 2024 5:4 9am 6 M FU January 19, 2025 3:1 9pm Chief Complaint Admit Date 6 M FU January 19, 2025 3:1 9pm Barretts esophagus/ADD PER GEO March 23, 2025 2:50pm Reason for Visit Admit Date Barretts esophagus January 19, 2025 3:1 9pm Fatty liver January 19, 2025 3:1 9pm Gastroparesis January 19, 2025 3:1 9pm Hiatal hernia January 19, 2025 3:1 9pm Nausea January 19, 2025 3:1 9pm IBS (irritable bowel syndrome) January 3:19pm Reason for Visit Admit Date Barretts esophagus January 19, 2025 3:1 9pm Fatty liver January 19, 2025 3:1 9pm Gastroparesis January 19, 2025 3:1 9pm Hiatal hernia January 19, 2025 3:1 9pm Nausea January 19, 2025 3:1 9pm IBS (irritable bowel syndrome) January 3:19pm Hiatal hernia March 23, 2025 2: 50pm Nausea March 23, 2025 2: 50pm IBS (irritable bowel syndrome) March 232024 2:50pm Barretts esophagus March 31, 2025 8 :34am Difficulty swallowing March 31, 2025 8:34am Hiatal hernia March 31, 2025 8 :34am Family History No Family History Records Found Relationship Condition Age at Onset Recorded Date/T clarke aunt Malignant neoplasm of colon Unknown Malignant neoplasm Unknown grandfather Cardiac disease Unknown Advance Directives No Advanced Directives Records Found Advance Directive Response Recorded Date/ Time Living Will No April 01 3:41pm Power of Brine Tank Operator No April 01, 2023 3:41pm Advance Directive Response Recorded Date/ Time Living Will No April 01 2:41pm Power of Brine Tank Operator No April 01, 2023 2:41pm Advance Directive Response Recorded Date/ Time Living Will No September 26, 2024 9:52am Do you have a Healthcare Power of Brine Tank Operator? No September 26, 2024 9:52am Advance Directive Response Recorded Date/ Time Living Will No October 01, 2024 8:53am Do you have a Healthcare Power of Brine Tank Operator? No October 01, 2024 8:53am Living Will No September 26, 2024 9:52am Do you have a Healthcare Power of Brine Tank Operator? No September 26, 2024 9:52am Advance Directive Response Recorded Date/ Time Do you have a Healthcare Power of Brine Tank Operator? No March 29, 2025 3:42pm Summary Purpose Additional Source Comments Goals (unrecognized section and content) Goals may be documented in a n alternate sectionGoals may be documented in an alternate sectionGoals may be documented in an alternate sectionGoals may be documented in an alternate sectionGoals may be documented in an alternate sectionGoals may be documented in an alternate sectionGoals may be documented in an alternate sectionGoals may be documented in an alternate sectionGoals may be documented in an alternate sectionGoals may be documented in an alternate section Care Teams (unrecognized sec tion and content) Team Status: Active Member Role Status Dates Dr. Dheeraj Villa MD Family Provider Active Dr. Dheeraj Villa MD Primary Care Provider Activ e Team Status: Inactive Member Role Status Dates Dr. Dheeraj Villa MD Primary Care Provider, Refe rring Provider Active Cassy Cohen ENTERPRISE ENGINEER, ENTERPRISE ENGINEER-C Attending Provider Active Team Status: Inactive Member Role Status Dates Dr. Dheeraj Villa MD Primary Care Provider Activ e Cassy Cohen ENTERPRISE ENGINEER, ENTERPRISE ENGINEER-C Attending Provider, Referring Provider Active Team Status: Active Member Role Status Dates Dr. Dheeraj Villa MD Primary Care Provider Activ e Cassy Cohen ENTERPRISE ENGINEER, ENTERPRISE ENGINEER-C Attending Provider, Referring Provider Active Team Status: Inactive Member Role Status Dates Dr. Dheeraj Villa MD Primary Care Provider, Refe rring Provider Active Dr. Porfirio Huertas DO Attending Provider Active Team Status: Inactive Member Role Status Dates Dr. Dheeraj Villa MD Primary Care Provider Activ e Dr. Porfirio Huertas DO Attending Provider, Referring Provider Active Team Status: Active Member Role Status Dates Dr. Dheeraj Villa MD Primary Care Provider, Refe rring Provider Active Dr. Porfirio Huertas DO Attending Provider, Other Prov ider Active Team Status: Active Member Role Status Dates Dr. Maxime Villa MD Primary Care Provider Acti ve Team Status: Inactive Member Role Status Dates Dr. Maxime Villa MD Primary Care Provider Acti ve Start: July 23, 2024 End: July 23, 2024 Dr. Maxime Villa MD Referring Provider Active Start: July 23, 2024 End: July 23, 2024 Dr. Porfirio Huertas DO Attending Provider Active Start: July 23, 2024 End: July 23, 2024 Team Status: Inactive Member Role Status Dates Dr. Maxime Villa MD Primary Care Provider Acti ve Start: August 05, 2024 End: August 05, 2024 Dr. Porfirio Huertas DO Attending Provider Active Start: August 05, 2024 End: August 05, 2024 Dr. Porfirio Huertas DO Referring Provider Active Start: August 05, 2024 End: August 05, 2024 Team Status: Inactive Member Role Status Dates Dr. Maxime Villa MD Primary Care Provider Acti ve Start: September 26, 2024 End: September 26, 2024 Dr. Malick Green DO Emergency Provider Active Start: September 26, 2024 End: September 26, 2024 Team Status: Inactive Member Role Status Dates Dr. Maxime Villa MD Primary Care Provider Acti ve Start: September 26, 2024 End: September 26, 2024 Dr. Malick Green DO Attending Provider Active Start: September 26, 2024 End: September 26, 2024 Dr. Malick Green DO Emergency Provider Active Start: September 26, 2024 End: September 26, 2024 Team Status: Inactive Member Role Status Dates Dr. Maxime Villa MD Primary Care Provider Acti ve Start: September 29, 2024 End: September 29, 2024 LUCIANO Kelly Attending Provider Active Start : September 29, 2024 End: September 29, 2024 LUCIANO Kelly Referring Provider Active Start : September 29, 2024 End: September 29, 2024 Dr. Porfirio Huertas DO Other Provider Active St art: September 29, 2024 End: September 29, 2024 Emily Gaona ENTERPRISE ENGINEER, ENTERPRISE ENGINEER-C Other Provider Active S tart: September 29, 2024 End: September 29, 2024 Team Status: Active Member Role Status Dates Dr. Maxime Villa MD Primary Care Provider Acti ve Start: September 29, 2024 End: September 29, 2024 Dr. Yony Corral MD Attending Provider Active Start: September 29, 2024 End: September 29, 2024 Dr. Liban Stack DO Referring Provider Active Start: September 29, 2024 End: September 29, 2024 Team Status: Inactive Member Role Status Dates Dr. Maxime Villa MD Primary Care Provider Acti ve Start: October 04, 2024 End: October 04, 2024 Dr. Liban Stack DO Attending Provider Active Start: October 04, 2024 End: October 04, 2024 Dr. Liban Stack DO Referring Provider Active Start: October 04, 2024 End: October 04, 2024 Team Status: Active Member Role/Relationship Status Dates Dr. Maxime Villa MD Primary Care Provider Acti ve Team Status: Inactive Member Role/Relationship Status Dates Dr. Maxime Villa MD Primary Care Provider Acti ve Start: September 26, 2024 End: September 26, 2024 Dr. Malick Green DO Attending Provider Active Start: September 26, 2024 End: September 26, 2024 Dr. Malick Green DO Emergency Provider Active Start: September 26, 2024 End: September 26, 2024 Team Status: Inactive Member Role/Relationship Status Dates Dr. Maxime Villa MD Primary Care Provider Acti ve Start: September 29, 2024 End: September 29, 2024 LUCIANO Kelly Attending Provider Active Start : September 29, 2024 End: September 29, 2024 LUCIANO Kelly Referring Provider Active Start : September 29, 2024 End: September 29, 2024 Dr. Porfirio Huertas DO Other Provider Active St art: September 29, 2024 End: September 29, 2024 Emily Gaona ENTERPRISE ENGINEER, ENTERPRISE ENGINEER-C Other Provider Active S tart: September 29, 2024 End: September 29, 2024 Team Status: Active Member Role/Relationship Status Dates Dr. Maxime Villa MD Primary Care Provider Acti ve Start: September 29, 2024 End: September 29, 2024 Dr. Yony Corral MD Attending Provider Active Start: September 29, 2024 End: September 29, 2024 Dr. Liban Stack DO Referring Provider Active Start: September 29, 2024 End: September 29, 2024 Team Status: Inactive Member Role/Relationship Status Dates Dr. Maxime Villa MD Primary Care Provider Acti ve Start: October 04, 2024 End: October 04, 2024 Dr. Liban Stack DO Attending Provider Active Start: October 04, 2024 End: October 04, 2024 Dr. Liban Stack DO Referring Provider Active Start: October 04, 2024 End: October 04, 2024 Team Status: Inactive Member Role/Relationship Status Dates Dr. Maxime Villa MD Primary Care Provider Acti ve Start: January 19, 2025 End: January 19, 2025 Dr. Maxime Villa MD Referring Provider Active Start: January 19, 2025 End: January 19, 2025 Dr. Porfirio Huertas DO Attending Provider Active Start: January 19, 2025 End: January 19, 2025 Team Status: Active Member Role/Relationship Status Dates Dr. Maxime Villa MD Primary care physician Act [place] Team Status: Inactive Member Role/Relationship Status Dates Dr. Maxime Villa MD Primary care physician Act [place] Start: January 19, 2025 End: January 19, 2025 Dr. Maxime Villa MD Referring Provider Active Start: January 19, 2025 End: January 19, 2025 Dr. Porfirio Huertas DO Attending physician Active Start: January 19, 2025 End: January 19, 2025 Team Status: Inactive Member Role/Relationship Status Dates Dr. Maxime Villa MD Primary care physician Act mercedez Start: March 23, 2025 End: March 23, 2025 Dr. Maxime Villa MD Referring Provider Active Start: March 23, 2025 End: March 23, 2025 LUCIANO White Attending physician Active Start: March 23, 2025 End: March 23, 2025 Team Status: Inactive Member Role/Relationship Status Dates Dr. Maxime Villa MD Primary care physician Act mercedez Start: March 31, 2025 End: March 31, 2025 Dr. Maxime Villa MD Referring Provider Active Start: March 31, 2025 End: March 31, 2025 Dr. Porfirio Huertas DO Attending physician Active Start: March 31, 2025 End: March 31, 2025 Team Status: Active Member Role/Relationship Status Dates Dr. Maxime Villa MD Primary care physician Act mercedez Start: March 31, 2025 Dr. Maxime Villa MD Referring Provider Active Start: March 31, 2025 Dr. Porfirio Huertas DO Attending physician Active Start: March 31, 2025 Dr. Porfirio Huertas DO Nurse Practitioner Active Start: March 31, 2025 INFORMATION SOURCE (unrecogn ized section and content) DATE CREATED AUTHOR 03/06/2025 [facility] DATE CREATED AUTHOR AUTHOR'S ORGANIZ ATION 04/26/2025 [facility] DATE CREATED AUTHOR AUTHOR'S ORGANIZ ATION 04/27/2025 [facility] FOR RECORDS PERTAINING TO PATIENTS WHO ARE [...] BE BASED ON THE PRIMARY CLINICAL RECORDS. [facility] [employer] [facility]. provides no warranty or guarantee of the accuracy or completeness of information in this document.
--- NOTE | 2025-04-29 18:55 | CT_ITS ---
PROCEDURE: EXTREMITY LOWER WITH CONTRAST 04/29/2025 REASON FOR EXAM: DISPLACED BIMALLEOLAR FRACTURE OF RIGHT LOWER LEG TECHNIQUE: Procedure Code: CTELW Modality: CT Procedure: EXTREMITY LOWER WITH CONTRAST Coronal and Sagittal reconstruction series were provided. CONTRAST: Intravenous administration of 99 mL Isovue 370. One or more dose reduction techniques were used (e.g., Automated exposure control, adjustment of the mA and/or kV according to patient size, use of iterative reconstruction technique). RADIATION DOSE SUMMARY: CTDlvol: 15.35 mGy DLP: 533.3 mGycm. COMPARISON: Left ankle intraoperative study of 10/04/2024. FINDINGS: Plates and screws transfixing distal tibial and fibular fracture sites again seen. No evidence of screw loosening or metallic fracture. Advanced osseous healing is noted. The ankle mortise appears intact, with only mild degenerative changes seen medially. No evidence of talar dome osteonecrosis. No ankle joint effusion is seen. Inferior and posterior calcaneal enthesophytes are seen. Normal contour of the Achilles tendon is noted. CT/Extremity Lower WITH Contrast IMPRESSION: No postsurgical complication is seen, and advanced healing of the distal tibial and fibular fracture sites is noted. Reading Location: [place] [id number]
== END | disposition home or self-care (01) ==
LOC: CT 18:50
PROVIDERS: PCP Family Medicine; Referring Provider Student in an Organized Health Care Education/Training Program; Visit Provider Student in an Organized Health Care Education/Training Program
DX: S82.841G Displaced bimalleolar fracture of right lower leg, subsequent encounter for closed fracture with delayed healing (principal); M25.571 Pain in right ankle and joints of right foot; R60.0 Localized edema
CPT/HCPCS: 73701; Q9967